=== PATIENT | female | born 1945 | race Caucasian/White ===

== ENCOUNTER 2017-07-31 18:44 | Inpatient (IN) ==
[2017-07-31] MEDS ORDERED: DEXTROSE 50% 25 GM/50 ML VIAL IV STA (19:07)
[2017-07-31] MEDS ORDERED: DEXTROSE 50% 25 GM/50 ML SYRINGE IV ONE (19:10)
[2017-07-31] MEDS ORDERED: ROCURONIUM 100 MG/10 ML VIAL IV ONE ×2 (19:10→19:11)
[2017-07-31 19:36] LABS: Basophils % 0.1 % (0.0-0.8); Eosinophils # 0.1 10*3/uL (0.0-0.87); Eosinophils % 0.2 % (0.00-10.9); Hematocrit 36.8 VOL% (35.7-47.0); Hemoglobin 11.6 GM/DL (12.0-16.0); Immature Granulocytes % 0.9 %; Immature Granulocytes Absolute 0.22 #; Lymphocytes # 0.6 10*3/uL (1.4-4.0); Lymphocytes % 2.4 % (21.3-54.2); Mean Corpuscular HGB Conc 31.5 GM/DL (32-36); Mean Corpuscular Hemoglobin 28 PG (27-34); Mean Corpuscular Volume 89.1 FL (87-102); Mean Platelet Volume 11.2 FL (9.6-12.0); Monocytes # 1.1 10*3/uL (0.11-0.8); Monocytes % 4.4 % (1.7-12.7); Platelet Count 149 T/CUMM (130-400); Red Blood Count 4.13 MC/CUMM (3.8-5.5); Red Cell Distribution Width 15.4 % (9.3-17.3)
[2017-07-31] MEDS ORDERED: VANCOMYCIN INJ 1,000 MG in SODIUM CHLORIDE 0.9% 250 ML IV STA (19:58)
[2017-07-31] MEDS ORDERED: CEFEPIME 2,000 MG in SODIUM CHLORIDE 0.9% 100 ML IV STA (19:58)
[2017-07-31 20:01] LABS: Albumin 2.7 G/DL (3.4-5.0); Bilirubin,Total 0.7 MG/DL (0.2-1.0); Calcium 8.1 MG/DL (8.5-10.1); Osmolality,Calculated 295.7 MOS/KG (273-304); Potassium 3.9 MMOL/L (3.5-5.1); Troponin I Only 0.043 NG/ML (0.00-0.045)
[2017-07-31] MEDS ORDERED: VANCOMYCIN 1,000 MG VIAL ONE (20:12)
[2017-07-31 20:20] LABS: Amorphous Crystals,Urine Occasional /HPF (Few); Apearance,Urine Slightly Hazy (Clear); Bacteria,Urine Occasional /HPF (Few); Bilirubin,Urine Negative (Negative); Blood, Urine Negative (Negative); Glucose,Urine (UA) 50 mg/dL (Negative); Ketones,Urine Negative (Negative); Mucus,Urine Occasional /LPF (Occasional); Nitrite,Urine Negative (Negative); Protein,Urine >=500 MG/DL; RBC,Urine 1 /HPF (0-4); Squamous Epithelial Cell,Urine Occasional /HPF (0-10); Urine Color Yellow (Yellow); Urine Specific Gravity 1.013 (1.001-1.035); Urine Urobilinogen < 2.0 EU/DL (0.2-1.0)
[2017-07-31 20:26] LABS: Band Neutrophils 4 % (0-10); Eosinophils 1 % (0-10); Lymphocytes 8 % (20-55); Platelet Estimate Normal; Segmented Neutrophils 85 % (50-85); Total Cells Counted 100
[2017-07-31 20:28] LABS: Lactic Acid 3.1 MMOL/L (0.4-2.0)
[2017-07-31] MEDS ORDERED: DEXTROSE 50% 25 GM/50 ML VIAL IV PRN (20:39)
[2017-07-31] MEDS ORDERED: GLUCAGON 1 MG VIAL IM PRN (20:39)
[2017-07-31] MEDS ORDERED: PROPOFOL 1,000 MG/100 ML BOTTLE IV ONE (20:46)
[2017-07-31] MEDS: PROPOFOL 1,000 MG/100 ML BOTTLE IV SCH (21:18)
[2017-07-31] MEDS ORDERED: VECURONIUM 10 MG VIAL IV ONE (22:28)
[2017-07-31] MEDS ORDERED: NOREPINEPHRINE 8 MG in SODIUM CHLORIDE 0.9% 242 ML IV SCH (23:00)
[2017-07-31] MEDS ORDERED: FUROSEMIDE 40 MG/4 ML VIAL IV ONE (23:00)
[2017-07-31 23:04] LABS: ABG Base Excess -2.7 MMOL/L (-2.5-2.5); ABG HCO3 21.9 MMOL/L (20-26); ABG Oxygen Saturation 85.7 % (95-100); ABG PCO2 45.4 MM HG (35-48); ABG PH 7.322 (7.35-7.45); ABG PO2 52.3 MM HG (80-95); ABG TCO2 21.2 MMOL/L (23-27); Pt O2 Delivery Device Ventilator
[2017-07-31] MEDS: LEVOFLOXACIN INJ 750 MG in PREMIX 1 EACH IV SCH (23:17)
[2017-07-31] MEDS: INSULIN REGULAR 100 UNIT/ML SUBCUT SCH (23:50)
[2017-08-01 00:33] LABS: Lactic Acid 2.1 MMOL/L (0.4-2.0)
[2017-08-01] MEDS: PROPOFOL 1,000 MG/100 ML BOTTLE IV SCH ×7 (01:15→23:24)
[2017-08-01 02:46] LABS: ABG Base Excess -2.6 MMOL/L (-2.5-2.5); ABG HCO3 22.2 MMOL/L (20-26); ABG Oxygen Saturation 97.6 % (95-100); ABG PCO2 35.1 MM HG (35-48); ABG PH 7.398 (7.35-7.45); ABG PO2 91.1 MM HG (80-95); ABG TCO2 19.6 MMOL/L (23-27); Pt O2 Delivery Device Ventilator
[2017-08-01 06:06] LABS: Basophils % 0.1 % (0.0-0.8); Eosinophils # 0.1 10*3/uL (0.0-0.87); Eosinophils % 0.9 % (0.00-10.9); Hematocrit 33.1 VOL% (35.7-47.0); Hemoglobin 10.8 GM/DL (12.0-16.0); Immature Granulocytes % 0.7 %; Immature Granulocytes Absolute 0.11 #; Lymphocytes # 0.8 10*3/uL (1.4-4.0); Mean Corpuscular HGB Conc 32.6 GM/DL (32-36); Mean Corpuscular Hemoglobin 28 PG (27-34); Mean Platelet Volume 11.7 FL (9.6-12.0); Monocytes # 0.5 10*3/uL (0.11-0.8); Monocytes % 3.5 % (1.7-12.7); Neutrophils # 13.4 10*3/uL (1.4-7.4); Neutrophils % 89.8 % (38.7-73.9); Platelet Count 131 T/CUMM (130-400); Red Blood Count 3.85 MC/CUMM (3.8-5.5); Red Cell Distribution Width 15.8 % (9.3-17.3)
[2017-08-01 06:50] LABS: Anisocytosis 1+; Platelet Estimate Normal
[2017-08-01 06:53] LABS: Albumin 2.1 G/DL (3.4-5.0); Bilirubin,Total 0.9 MG/DL (0.2-1.0); Calcium 7.7 MG/DL (8.5-10.1); Osmolality,Calculated 291.3 MOS/KG (273-304); Thyroid Stimulating Hormone 0.616 uIU/ml (0.358-3.74); Total Protein 4.7 G/DL (6.4-8.3)
[2017-08-01] MEDS: INSULIN REGULAR 100 UNIT/ML SUBCUT SCH ×4 (08:08→21:22)
[2017-08-01] MEDS: VANCOMYCIN INJ 1,500 MG in SODIUM CHLORIDE 0.9% 500 ML IV SCH (08:16)
[2017-08-01] MEDS: MEROPENEM 1,000 MG in SYRINGE 1 EACH IV SCH ×3 (08:16→17:59)
[2017-08-01] MEDS: CLOPIDOGREL 75 MG TABLET PO SCH (13:38)
[2017-08-01] MEDS: BISOPROLOL 5 MG TABLET PO SCH (13:38)
[2017-08-01] MEDS: DOXAZOSIN 1 MG TABLET PO SCH (13:38)
[2017-08-01] MEDS ORDERED: INSULIN DETEMIR 100 UNIT/ML SUBCUT SCH (21:00)
[2017-08-01] MEDS: hydrALAZINE 20 MG/1 ML VIAL IV PRN (21:15)
[2017-08-01] MEDS: INSULIN GLARGINE 100 UNIT/ML SUBCUT SCH (21:22)
[2017-08-01] MEDS: NYSTATIN CREAM 15 GM TUBE TOP SCH (21:25)
[2017-08-02] MEDS: MEROPENEM 1,000 MG in SYRINGE 1 EACH IV SCH ×3 (00:25→16:40)
[2017-08-02] MEDS: PROPOFOL 1,000 MG/100 ML BOTTLE IV SCH ×5 (03:02→21:37)
[2017-08-02 03:35] LABS: ABG Base Excess -0.7 MMOL/L (-2.5-2.5); ABG HCO3 23.9 MMOL/L (20-26); ABG PCO2 26.1 MM HG (35-48); ABG PH 7.509 (7.35-7.45); ABG TCO2 17.8 MMOL/L (23-27); Allen Test Positive; Pt O2 Delivery Device Ventilator
[2017-08-02] MEDS ORDERED: FUROSEMIDE 40 MG/4 ML VIAL IV ONE (05:00)
[2017-08-02 05:25] LABS: Basophils % 0.1 % (0.0-0.8); Eosinophils # 0.1 10*3/uL (0.0-0.87); Eosinophils % 0.7 % (0.00-10.9); Hematocrit 33.1 VOL% (35.7-47.0); Hemoglobin 11.1 GM/DL (12.0-16.0); Immature Granulocytes % 0.9 %; Lymphocytes # 0.4 10*3/uL (1.4-4.0); Lymphocytes % 3.4 % (21.3-54.2); Mean Corpuscular HGB Conc 33.5 GM/DL (32-36); Mean Corpuscular Hemoglobin 28 PG (27-34); Mean Corpuscular Volume 83.6 FL (87-102); Mean Platelet Volume 11.9 FL (9.6-12.0); Monocytes # 0.4 10*3/uL (0.11-0.8); Monocytes % 3.6 % (1.7-12.7); Neutrophils # 10.2 10*3/uL (1.4-7.4); Neutrophils % 91.3 % (38.7-73.9); Platelet Count 139 T/CUMM (130-400); Red Blood Count 3.96 MC/CUMM (3.8-5.5); Red Cell Distribution Width 15.7 % (9.3-17.3); White Blood Count 11.2 T/CUMM (4-12)
[2017-08-02 05:55] LABS: Albumin 1.9 G/DL (3.4-5.0); Bilirubin,Total 4.4 MG/DL (0.2-1.0); Calcium 8.2 MG/DL (8.5-10.1); Magnesium 2.2 MG/DL (1.8-2.4); Osmolality,Calculated 291.4 MOS/KG (273-304); Potassium 3.3 MMOL/L (3.5-5.1); Total Protein 4.7 G/DL (6.4-8.3)
[2017-08-02] MEDS ORDERED: POTASSIUM CHLORIDE RIDER 10 MEQ in PREMIX 1 EACH IV PRN (06:04)
[2017-08-02 06:29] LABS: Band Neutrophils 2 % (0-10); Lymphocytes 8 % (20-55); Platelet Estimate Normal; Segmented Neutrophils 88 % (50-85); Total Cells Counted 100
[2017-08-02] MEDS ORDERED: POTASSIUM CHLORIDE INJ 40 MEQ in SODIUM CHLORIDE 0.9% 500 ML IV ONE (07:00)
[2017-08-02] MEDS: INSULIN REGULAR 100 UNIT/ML SUBCUT SCH ×4 (08:00→21:37)
[2017-08-02] MEDS: DOXAZOSIN 1 MG TABLET PO SCH (08:30)
[2017-08-02] MEDS: ASPIRIN EC 81 MG TABLET PO SCH (08:30)
[2017-08-02] MEDS: BISOPROLOL 5 MG TABLET PO SCH (08:30)
[2017-08-02] MEDS: PRAVASTATIN 20 MG TABLET PO SCH (08:30)
[2017-08-02] MEDS: CLOPIDOGREL 75 MG TABLET PO SCH (08:30)
[2017-08-02] MEDS: amLODIPine 10 MG TABLET PO SCH (08:30)
[2017-08-02] MEDS: NYSTATIN CREAM 15 GM TUBE TOP SCH ×2 (08:31→21:37)
[2017-08-02] MEDS ORDERED: POTASSIUM CHLORIDE INJ 30 MEQ in SODIUM CHLORIDE 0.9% 500 ML IV ONE (19:30)
[2017-08-02] MEDS: INSULIN GLARGINE 100 UNIT/ML SUBCUT SCH (21:37)
[2017-08-02] MEDS: LEVOFLOXACIN INJ 750 MG in PREMIX 1 EACH IV SCH (23:56)
[2017-08-03] MEDS: MEROPENEM 1,000 MG in SYRINGE 1 EACH IV SCH ×3 (02:48→21:34)
[2017-08-03] MEDS: PROPOFOL 1,000 MG/100 ML BOTTLE IV SCH ×4 (02:49→18:39)
[2017-08-03 04:03] LABS: ABG Base Excess 0.3 MMOL/L (-2.5-2.5); ABG HCO3 23.5 MMOL/L (20-26); ABG Oxygen Saturation 98.6 % (95-100); ABG PO2 166.2 MM HG (80-95); ABG TCO2 24.5 MMOL/L (23-27); Allen Test Positive; Pt O2 Delivery Device Ventilator
[2017-08-03] MEDS: hydrALAZINE 20 MG/1 ML VIAL IV PRN (06:03)
[2017-08-03 06:26] LABS: Basophils % 0.1 % (0.0-0.8); Eosinophils # 0.2 10*3/uL (0.0-0.87); Eosinophils % 2.5 % (0.00-10.9); Hematocrit 32.2 VOL% (35.7-47.0); Hemoglobin 10.4 GM/DL (12.0-16.0); Immature Granulocytes % 1.1 %; Immature Granulocytes Absolute 0.09 #; Lymphocytes # 0.2 10*3/uL (1.4-4.0); Lymphocytes % 2.4 % (21.3-54.2); Mean Corpuscular HGB Conc 32.3 GM/DL (32-36); Mean Corpuscular Hemoglobin 28 PG (27-34); Mean Corpuscular Volume 86.6 FL (87-102); Mean Platelet Volume 11.5 FL (9.6-12.0); Monocytes # 0.5 10*3/uL (0.11-0.8); Monocytes % 6.5 % (1.7-12.7); Neutrophils # 6.9 10*3/uL (1.4-7.4); Neutrophils % 87.4 % (38.7-73.9); Platelet Count 101 T/CUMM (130-400); Red Blood Count 3.72 MC/CUMM (3.8-5.5); Red Cell Distribution Width 15.8 % (9.3-17.3); White Blood Count 7.9 T/CUMM (4-12)
[2017-08-03 06:44] LABS: Hypochromasia Slight
[2017-08-03 07:05] LABS: Albumin 1.8 G/DL (3.4-5.0); Bilirubin,Total 3.7 MG/DL (0.2-1.0); Calcium 8.1 MG/DL (8.5-10.1); Osmolality,Calculated 297.7 MOS/KG (273-304); Potassium 3.9 MMOL/L (3.5-5.1); Total Protein 4.9 G/DL (6.4-8.3)
[2017-08-03] MEDS: INSULIN REGULAR 100 UNIT/ML SUBCUT SCH ×3 (07:59→18:15)
[2017-08-03] MEDS: VANCOMYCIN INJ 1,500 MG in SODIUM CHLORIDE 0.9% 500 ML IV SCH (08:05)
[2017-08-03] MEDS: DOXAZOSIN 1 MG TABLET PO SCH (08:51)
[2017-08-03] MEDS: PRAVASTATIN 20 MG TABLET PO SCH (08:51)
[2017-08-03] MEDS: BISOPROLOL 5 MG TABLET PO SCH (08:51)
[2017-08-03] MEDS: amLODIPine 10 MG TABLET PO SCH (08:51)
[2017-08-03] MEDS: ASPIRIN EC 81 MG TABLET PO SCH (08:51)
[2017-08-03] MEDS: CLOPIDOGREL 75 MG TABLET PO SCH (08:57)
[2017-08-03] MEDS: NYSTATIN CREAM 15 GM TUBE TOP SCH ×2 (09:02→21:34)
[2017-08-03] MEDS: INSULIN GLARGINE 100 UNIT/ML SUBCUT SCH (21:34)
[2017-08-04] MEDS: INSULIN REGULAR 100 UNIT/ML SUBCUT SCH ×4 (02:32→17:54)
[2017-08-04] MEDS: PROPOFOL 1,000 MG/100 ML BOTTLE IV SCH ×4 (03:44→21:08)
[2017-08-04 04:12] LABS: ABG HCO3 24.5 MMOL/L (20-26); ABG Oxygen Saturation 98.8 % (95-100); ABG PCO2 31.1 MM HG (35-48); ABG PH 7.515 (7.35-7.45); ABG PO2 168.6 MM HG (80-95); ABG TCO2 25.5 MMOL/L (23-27); Allen Test Positive; Pt O2 Delivery Device Ventilator
[2017-08-04 05:02] LABS: Basophils % 0.2 % (0.0-0.8); Eosinophils # 0.2 10*3/uL (0.0-0.87); Eosinophils % 4.5 % (0.00-10.9); Hematocrit 30.7 VOL% (35.7-47.0); Hemoglobin 9.9 GM/DL (12.0-16.0); Immature Granulocytes % 1.6 %; Immature Granulocytes Absolute 0.08 #; Lymphocytes # 0.3 10*3/uL (1.4-4.0); Lymphocytes % 6.4 % (21.3-54.2); Mean Corpuscular HGB Conc 32.2 GM/DL (32-36); Mean Corpuscular Hemoglobin 28 PG (27-34); Mean Platelet Volume 11.9 FL (9.6-12.0); Monocytes # 0.7 10*3/uL (0.11-0.8); Monocytes % 12.8 % (1.7-12.7); NRBC # 0.02 10*3/uL; Neutrophils # 3.9 10*3/uL (1.4-7.4); Neutrophils % 74.5 % (38.7-73.9); Platelet Count 100 T/CUMM (130-400); Red Blood Count 3.57 MC/CUMM (3.8-5.5); Red Cell Distribution Width 15.7 % (9.3-17.3); White Blood Count 5.2 T/CUMM (4-12)
[2017-08-04 05:30] LABS: Calcium 7.7 MG/DL (8.5-10.1); Magnesium 2.5 MG/DL (1.8-2.4); Osmolality,Calculated 298.4 MOS/KG (273-304); Potassium 3.8 MMOL/L (3.5-5.1)
[2017-08-04] MEDS ORDERED: POTASSIUM CHLORIDE RIDER 0 ML IV ONE (05:57)
[2017-08-04] MEDS: hydrALAZINE 20 MG/1 ML VIAL IV PRN (06:26)
[2017-08-04] MEDS ORDERED: FUROSEMIDE 40 MG/4 ML VIAL IV ONE (07:53)
[2017-08-04] MEDS: methylPREDNISolone SOD SUC 40 MG/1 ML VIAL IV SCH ×2 (08:45→16:09)
[2017-08-04] MEDS: CLOPIDOGREL 75 MG TABLET PO SCH (08:50)
[2017-08-04] MEDS: DOXAZOSIN 1 MG TABLET PO SCH (08:50)
[2017-08-04] MEDS: amLODIPine 10 MG TABLET PO SCH (08:50)
[2017-08-04] MEDS: PRAVASTATIN 20 MG TABLET PO SCH (08:51)
[2017-08-04] MEDS: ASPIRIN EC 81 MG TABLET PO SCH (08:52)
[2017-08-04] MEDS: BISOPROLOL 5 MG TABLET PO SCH (09:01)
[2017-08-04] MEDS: MEROPENEM 1,000 MG in SYRINGE 1 EACH IV SCH ×2 (09:08→21:07)
[2017-08-04] MEDS: NYSTATIN CREAM 15 GM TUBE TOP SCH ×2 (09:17→21:08)
[2017-08-04] MEDS: INSULIN GLARGINE 100 UNIT/ML SUBCUT SCH (21:07)
[2017-08-05] MEDS: LEVOFLOXACIN INJ 750 MG in PREMIX 1 EACH IV SCH (00:04)
[2017-08-05] MEDS: methylPREDNISolone SOD SUC 40 MG/1 ML VIAL IV SCH ×3 (00:21→17:40)
[2017-08-05] MEDS: INSULIN REGULAR 100 UNIT/ML SUBCUT SCH ×4 (00:21→18:24)
[2017-08-05] MEDS: PROPOFOL 1,000 MG/100 ML BOTTLE IV SCH (01:59)
[2017-08-05 04:12] LABS: ABG Base Excess -0.3 MMOL/L (-2.5-2.5); ABG HCO3 24.1 MMOL/L (20-26); ABG Oxygen Saturation 95.8 % (95-100); ABG PCO2 39.2 MM HG (35-48); ABG PO2 79.9 MM HG (80-95); ABG TCO2 21.2 MMOL/L (23-27); Allen Test Positive; Pt O2 Delivery Device Ventilator
[2017-08-05 05:37] LABS: Basophils % 0.4 % (0.0-0.8); Eosinophils % 0.4 % (0.00-10.9); Hematocrit 34.4 VOL% (35.7-47.0); Hemoglobin 11.1 GM/DL (12.0-16.0); Immature Granulocytes % 2.1 %; Immature Granulocytes Absolute 0.11 #; Lymphocytes # 0.3 10*3/uL (1.4-4.0); Lymphocytes % 5.2 % (21.3-54.2); Mean Corpuscular HGB Conc 32.3 GM/DL (32-36); Mean Corpuscular Hemoglobin 28 PG (27-34); Mean Corpuscular Volume 85.8 FL (87-102); Mean Platelet Volume 11.8 FL (9.6-12.0); Monocytes # 0.4 10*3/uL (0.11-0.8); NRBC # 0.02 10*3/uL; Neutrophils # 4.4 10*3/uL (1.4-7.4); Neutrophils % 84.9 % (38.7-73.9); Platelet Count 94 T/CUMM (130-400); Red Blood Count 4.01 MC/CUMM (3.8-5.5); Red Cell Distribution Width 15.1 % (9.3-17.3); White Blood Count 5.2 T/CUMM (4-12)
[2017-08-05 06:01] LABS: Calcium 8.1 MG/DL (8.5-10.1); Osmolality,Calculated 308.6 MOS/KG (273-304)
[2017-08-05 06:02] LABS: Potassium 3.9 MMOL/L (3.5-5.1)
[2017-08-05 06:06] LABS: Giant Platelets Few; Hypochromasia 1+; Microcytosis Slight; Platelet Estimate Decreased
[2017-08-05] MEDS ORDERED: POTASSIUM CHLORIDE RIDER 100 ML IV ONE (06:21)
[2017-08-05] MEDS: VANCOMYCIN INJ 1,500 MG in SODIUM CHLORIDE 0.9% 500 ML IV SCH (09:44)
[2017-08-05] MEDS: PRAVASTATIN 20 MG TABLET PO SCH (09:48)
[2017-08-05] MEDS: amLODIPine 10 MG TABLET PO SCH (09:49)
[2017-08-05] MEDS: DOXAZOSIN 1 MG TABLET PO SCH (09:49)
[2017-08-05] MEDS: CLOPIDOGREL 75 MG TABLET PO SCH (09:49)
[2017-08-05] MEDS: ASPIRIN EC 81 MG TABLET PO SCH (09:52)
[2017-08-05] MEDS: NYSTATIN CREAM 15 GM TUBE TOP SCH ×2 (09:52→21:09)
[2017-08-05] MEDS: BISOPROLOL 5 MG TABLET PO SCH (09:58)
[2017-08-05] MEDS: MEROPENEM 1,000 MG in SYRINGE 1 EACH IV SCH ×2 (10:21→21:09)
[2017-08-05] MEDS: CITALOPRAM 20 MG TABLET PO SCH (14:29)
[2017-08-05] MEDS: ALPRAZolam 0.25 MG TABLET PO SCH ×2 (14:29→21:09)
[2017-08-05] MEDS: INSULIN GLARGINE 100 UNIT/ML SUBCUT SCH (21:09)
[2017-08-06] MEDS: methylPREDNISolone SOD SUC 40 MG/1 ML VIAL IV SCH ×3 (00:05→16:40)
[2017-08-06] MEDS: INSULIN REGULAR 100 UNIT/ML SUBCUT SCH ×4 (00:05→17:41)
[2017-08-06 02:10] LABS: Basophils % 0.2 % (0.0-0.8); Eosinophils % 0.2 % (0.00-10.9); Hematocrit 35.3 VOL% (35.7-47.0); Hemoglobin 11.4 GM/DL (12.0-16.0); Immature Granulocytes % 1.5 %; Immature Granulocytes Absolute 0.13 #; Lymphocytes # 0.4 10*3/uL (1.4-4.0); Lymphocytes % 4.5 % (21.3-54.2); Mean Corpuscular HGB Conc 32.3 GM/DL (32-36); Mean Corpuscular Hemoglobin 27 PG (27-34); Mean Corpuscular Volume 84.4 FL (87-102); Mean Platelet Volume 11.7 FL (9.6-12.0); Monocytes # 0.4 10*3/uL (0.11-0.8); Monocytes % 4.7 % (1.7-12.7); Neutrophils # 7.5 10*3/uL (1.4-7.4); Neutrophils % 88.9 % (38.7-73.9); Platelet Count 107 T/CUMM (130-400); Red Blood Count 4.18 MC/CUMM (3.8-5.5); White Blood Count 8.5 T/CUMM (4-12)
[2017-08-06 02:42] LABS: Calcium 8.2 MG/DL (8.5-10.1); Osmolality,Calculated 309.7 MOS/KG (273-304)
[2017-08-06 02:48] LABS: Band Neutrophils 18 % (0-10); Lymphocytes 3 % (20-55); Segmented Neutrophils 74 % (50-85); Total Cells Counted 100
[2017-08-06 04:02] LABS: Allen Test Positive; Pt O2 Delivery Device Venturi Mask
[2017-08-06 04:03] LABS: ABG Base Excess 0.4 MMOL/L (-2.5-2.5); ABG HCO3 24.7 MMOL/L (20-26); ABG Oxygen Saturation 94.1 % (95-100); ABG PCO2 40.1 MM HG (35-48); ABG PH 7.404 (7.35-7.45); ABG TCO2 22.5 MMOL/L (23-27)
[2017-08-06] MEDS ORDERED: PSEUDOEPHEDRINE 30 MG TABLET PO PRN (07:06)
[2017-08-06] MEDS ORDERED: CETIRIZINE 10 MG TABLET PO PRN (09:00)
[2017-08-06] MEDS: amLODIPine 10 MG TABLET PO SCH (10:40)
[2017-08-06] MEDS: BISOPROLOL 5 MG TABLET PO SCH (10:40)
[2017-08-06] MEDS: ASPIRIN EC 81 MG TABLET PO SCH (10:40)
[2017-08-06] MEDS: ALPRAZolam 0.25 MG TABLET PO SCH ×2 (10:40→21:20)
[2017-08-06] MEDS: CITALOPRAM 20 MG TABLET PO SCH (10:40)
[2017-08-06] MEDS: DOXAZOSIN 1 MG TABLET PO SCH (10:40)
[2017-08-06] MEDS: NYSTATIN CREAM 15 GM TUBE TOP SCH ×2 (10:40→21:15)
[2017-08-06] MEDS: PRAVASTATIN 20 MG TABLET PO SCH (10:40)
[2017-08-06] MEDS: CLOPIDOGREL 75 MG TABLET PO SCH (10:40)
[2017-08-06] MEDS: MEROPENEM 1,000 MG in SYRINGE 1 EACH IV SCH ×2 (10:43→21:25)
[2017-08-06] MEDS: INSULIN GLARGINE 100 UNIT/ML SUBCUT SCH (21:21)
[2017-08-06] MEDS: LEVOFLOXACIN INJ 750 MG in PREMIX 1 EACH IV SCH (23:09)
[2017-08-07] MEDS: INSULIN REGULAR 100 UNIT/ML SUBCUT SCH ×4 (00:25→18:12)
[2017-08-07] MEDS: methylPREDNISolone SOD SUC 40 MG/1 ML VIAL IV SCH ×3 (00:29→15:52)
[2017-08-07 05:51] LABS: Basophils % 0.1 % (0.0-0.8); Eosinophils % 0.3 % (0.00-10.9); Hematocrit 34.5 VOL% (35.7-47.0); Hemoglobin 11.5 GM/DL (12.0-16.0); Immature Granulocytes % 4.1 %; Immature Granulocytes Absolute 0.28 #; Lymphocytes # 0.5 10*3/uL (1.4-4.0); Lymphocytes % 6.9 % (21.3-54.2); Mean Corpuscular HGB Conc 33.3 GM/DL (32-36); Mean Corpuscular Hemoglobin 28 PG (27-34); Mean Corpuscular Volume 82.9 FL (87-102); Mean Platelet Volume 11.5 FL (9.6-12.0); Monocytes # 0.4 10*3/uL (0.11-0.8); Monocytes % 6.3 % (1.7-12.7); Neutrophils # 5.6 10*3/uL (1.4-7.4); Neutrophils % 82.3 % (38.7-73.9); Platelet Count 103 T/CUMM (130-400); Red Blood Count 4.16 MC/CUMM (3.8-5.5); Red Cell Distribution Width 14.8 % (9.3-17.3); White Blood Count 6.8 T/CUMM (4-12)
[2017-08-07 06:14] LABS: Calcium 8.1 MG/DL (8.5-10.1); Osmolality,Calculated 308.1 MOS/KG (273-304); Potassium 4.4 MMOL/L (3.5-5.1)
[2017-08-07 06:51] LABS: Microcytosis 1+
[2017-08-07 06:52] LABS: Platelet Estimate Decreased
[2017-08-07] MEDS: MEROPENEM 1,000 MG in SYRINGE 1 EACH IV SCH ×2 (09:38→22:00)
[2017-08-07] MEDS: CITALOPRAM 20 MG TABLET PO SCH (09:39)
[2017-08-07] MEDS: PRAVASTATIN 20 MG TABLET PO SCH (09:39)
[2017-08-07] MEDS: ASPIRIN EC 81 MG TABLET PO SCH (09:39)
[2017-08-07] MEDS: CLOPIDOGREL 75 MG TABLET PO SCH (09:39)
[2017-08-07] MEDS: VANCOMYCIN INJ 1,500 MG in SODIUM CHLORIDE 0.9% 500 ML IV SCH (09:39)
[2017-08-07] MEDS: DOXAZOSIN 1 MG TABLET PO SCH (09:39)
[2017-08-07] MEDS: ALPRAZolam 0.25 MG TABLET PO SCH ×2 (09:39→22:00)
[2017-08-07] MEDS: amLODIPine 10 MG TABLET PO SCH (09:39)
[2017-08-07] MEDS: BISOPROLOL 5 MG TABLET PO SCH (09:39)
[2017-08-07] MEDS: NYSTATIN CREAM 15 GM TUBE TOP SCH ×2 (09:40→22:01)
[2017-08-07] MEDS: INSULIN GLARGINE 100 UNIT/ML SUBCUT SCH (22:00)
[2017-08-08] MEDS: INSULIN REGULAR 100 UNIT/ML SUBCUT SCH ×5 (00:25→23:42)
[2017-08-08] MEDS: methylPREDNISolone SOD SUC 40 MG/1 ML VIAL IV SCH ×4 (02:45→23:29)
[2017-08-08 06:35] LABS: Basophils % 0.5 % (0.0-0.8); Eosinophils % 0.5 % (0.00-10.9); Hematocrit 35.3 VOL% (35.7-47.0); Hemoglobin 11.4 GM/DL (12.0-16.0); Immature Granulocytes % 5.9 %; Immature Granulocytes Absolute 0.36 #; Lymphocytes # 0.5 10*3/uL (1.4-4.0); Lymphocytes % 8.6 % (21.3-54.2); Mean Corpuscular HGB Conc 32.3 GM/DL (32-36); Mean Corpuscular Hemoglobin 27 PG (27-34); Mean Corpuscular Volume 84.2 FL (87-102); Mean Platelet Volume 11.2 FL (9.6-12.0); Monocytes # 0.4 10*3/uL (0.11-0.8); Monocytes % 5.9 % (1.7-12.7); Neutrophils # 4.8 10*3/uL (1.4-7.4); Neutrophils % 78.6 % (38.7-73.9); Platelet Count 145 T/CUMM (130-400); Red Blood Count 4.19 MC/CUMM (3.8-5.5); Red Cell Distribution Width 14.7 % (9.3-17.3); White Blood Count 6.1 T/CUMM (4-12)
[2017-08-08 07:00] LABS: Osmolality,Calculated 302.3 MOS/KG (273-304); Potassium 4.9 MMOL/L (3.5-5.1)
[2017-08-08 07:33] LABS: Band Neutrophils 9 % (0-10); Lymphocytes 10 % (20-55); Segmented Neutrophils 78 % (50-85); Total Cells Counted 100
[2017-08-08] MEDS: BISOPROLOL 5 MG TABLET PO SCH (09:10)
[2017-08-08] MEDS: ALPRAZolam 0.25 MG TABLET PO SCH ×2 (09:10→23:31)
[2017-08-08] MEDS: NYSTATIN CREAM 15 GM TUBE TOP SCH ×2 (09:10→23:32)
[2017-08-08] MEDS: DOXAZOSIN 1 MG TABLET PO SCH (09:10)
[2017-08-08] MEDS: PRAVASTATIN 20 MG TABLET PO SCH (09:10)
[2017-08-08] MEDS: CITALOPRAM 20 MG TABLET PO SCH (09:10)
[2017-08-08] MEDS: ASPIRIN EC 81 MG TABLET PO SCH (09:10)
[2017-08-08] MEDS: CLOPIDOGREL 75 MG TABLET PO SCH (09:10)
[2017-08-08] MEDS: amLODIPine 10 MG TABLET PO SCH (09:10)
[2017-08-08] MEDS: MEROPENEM 1,000 MG in SYRINGE 1 EACH IV SCH ×2 (09:10→23:32)
[2017-08-08] MEDS ORDERED: MAGNESIUM HYDROXIDE SUSP 30 ML UDCUP PO ONE (15:21)
[2017-08-08] MEDS ORDERED: BISACODYL 5 MG TABLET PO ONE (15:22)
[2017-08-08] MEDS ORDERED: LACTULOSE 20 GM/30 ML UDCUP PO ONE (21:00)
[2017-08-08] MEDS: INSULIN GLARGINE 100 UNIT/ML SUBCUT SCH (23:30)
[2017-08-08] MEDS: DOCUSATE SODIUM 100 MG CAPSULE PO SCH (23:31)
[2017-08-08] MEDS: LEVOFLOXACIN INJ 750 MG in PREMIX 1 EACH IV SCH (23:43)
[2017-08-09] MEDS: INSULIN REGULAR 100 UNIT/ML SUBCUT SCH ×3 (07:08→18:15)
[2017-08-09] MEDS: ASPIRIN EC 81 MG TABLET PO SCH (09:05)
[2017-08-09] MEDS: BISOPROLOL 5 MG TABLET PO SCH (09:05)
[2017-08-09] MEDS: DOXAZOSIN 1 MG TABLET PO SCH (09:05)
[2017-08-09] MEDS: DOCUSATE SODIUM 100 MG CAPSULE PO SCH ×2 (09:05→21:41)
[2017-08-09] MEDS: CITALOPRAM 20 MG TABLET PO SCH (09:05)
[2017-08-09] MEDS: amLODIPine 10 MG TABLET PO SCH (09:05)
[2017-08-09] MEDS: ALPRAZolam 0.25 MG TABLET PO SCH ×2 (09:06→21:41)
[2017-08-09] MEDS: CLOPIDOGREL 75 MG TABLET PO SCH (09:06)
[2017-08-09] MEDS: PRAVASTATIN 20 MG TABLET PO SCH (09:06)
[2017-08-09] MEDS: methylPREDNISolone SOD SUC 40 MG/1 ML VIAL IV SCH ×2 (09:06→16:32)
[2017-08-09] MEDS: NYSTATIN CREAM 15 GM TUBE TOP SCH ×2 (09:07→21:53)
[2017-08-09] MEDS: MEROPENEM 1,000 MG in SYRINGE 1 EACH IV SCH ×2 (09:07→21:44)
[2017-08-09] MEDS: INSULIN GLARGINE 100 UNIT/ML SUBCUT SCH (21:52)
[2017-08-10] MEDS: methylPREDNISolone SOD SUC 40 MG/1 ML VIAL IV SCH ×3 (00:53→15:24)
[2017-08-10] MEDS: INSULIN REGULAR 100 UNIT/ML SUBCUT SCH ×4 (01:01→17:34)
[2017-08-10 06:32] LABS: Calcium 8.3 MG/DL (8.5-10.1); Osmolality,Calculated 295.5 MOS/KG (273-304)
[2017-08-10] MEDS: ASPIRIN EC 81 MG TABLET PO SCH (08:55)
[2017-08-10] MEDS: ALPRAZolam 0.25 MG TABLET PO SCH ×2 (08:55→21:18)
[2017-08-10] MEDS: DOCUSATE SODIUM 100 MG CAPSULE PO SCH ×2 (08:55→21:18)
[2017-08-10] MEDS: PRAVASTATIN 20 MG TABLET PO SCH (08:55)
[2017-08-10] MEDS: DOXAZOSIN 1 MG TABLET PO SCH (08:55)
[2017-08-10] MEDS: amLODIPine 10 MG TABLET PO SCH (08:55)
[2017-08-10] MEDS: BISOPROLOL 5 MG TABLET PO SCH (08:55)
[2017-08-10] MEDS: CLOPIDOGREL 75 MG TABLET PO SCH (08:55)
[2017-08-10] MEDS: CITALOPRAM 20 MG TABLET PO SCH (08:55)
[2017-08-10] MEDS: MEROPENEM 1,000 MG in SYRINGE 1 EACH IV SCH ×2 (08:56→21:19)
[2017-08-10] MEDS: NYSTATIN CREAM 15 GM TUBE TOP SCH (08:56)
[2017-08-10] MEDS ORDERED: ALBUTEROL/IPRATROPIUM 3 ML NEB RESP TX PRN (11:52)
[2017-08-10] MEDS: INSULIN GLARGINE 100 UNIT/ML SUBCUT SCH (21:18)
[2017-08-11] MEDS: methylPREDNISolone SOD SUC 40 MG/1 ML VIAL IV SCH ×3 (00:13→21:06)
[2017-08-11] MEDS: LEVOFLOXACIN INJ 750 MG in PREMIX 1 EACH IV SCH (00:14)
[2017-08-11] MEDS: INSULIN REGULAR 100 UNIT/ML SUBCUT SCH ×4 (00:14→17:46)
[2017-08-11] MEDS: NYSTATIN CREAM 15 GM TUBE TOP SCH ×3 (00:15→21:05)
[2017-08-11] MEDS: DOXAZOSIN 1 MG TABLET PO SCH (09:24)
[2017-08-11] MEDS: ALPRAZolam 0.25 MG TABLET PO SCH ×2 (09:24→21:05)
[2017-08-11] MEDS: CITALOPRAM 20 MG TABLET PO SCH (09:24)
[2017-08-11] MEDS: MEROPENEM 1,000 MG in SYRINGE 1 EACH IV SCH (09:24)
[2017-08-11] MEDS: DOCUSATE SODIUM 100 MG CAPSULE PO SCH ×2 (09:24→21:05)
[2017-08-11] MEDS: amLODIPine 10 MG TABLET PO SCH (09:24)
[2017-08-11] MEDS: ASPIRIN EC 81 MG TABLET PO SCH (09:24)
[2017-08-11] MEDS: PRAVASTATIN 20 MG TABLET PO SCH (09:24)
[2017-08-11] MEDS: CLOPIDOGREL 75 MG TABLET PO SCH (09:24)
[2017-08-11] MEDS: BISOPROLOL 5 MG TABLET PO SCH (09:24)
[2017-08-11] MEDS ORDERED: TUBERCULIN SKIN TEST 0.1 ML SYRINGE INTRADERM ONE (14:25)
[2017-08-11] MEDS: INSULIN GLARGINE 100 UNIT/ML SUBCUT SCH (21:05)
[2017-08-12] MEDS: INSULIN REGULAR 100 UNIT/ML SUBCUT SCH ×4 (00:35→17:54)
[2017-08-12 06:01] LABS: Basophils % 0.1 % (0.0-0.8); Eosinophils % 0.1 % (0.00-10.9); Hematocrit 33.8 VOL% (35.7-47.0); Hemoglobin 11.3 GM/DL (12.0-16.0); Immature Granulocytes % 3.5 %; Immature Granulocytes Absolute 0.25 #; Lymphocytes # 0.4 10*3/uL (1.4-4.0); Lymphocytes % 5.9 % (21.3-54.2); Mean Corpuscular HGB Conc 33.4 GM/DL (32-36); Mean Corpuscular Hemoglobin 28 PG (27-34); Mean Corpuscular Volume 83.5 FL (87-102); Mean Platelet Volume 10.9 FL (9.6-12.0); Monocytes # 0.4 10*3/uL (0.11-0.8); Monocytes % 5.6 % (1.7-12.7); Neutrophils % 84.8 % (38.7-73.9); Platelet Count 165 T/CUMM (130-400); Red Blood Count 4.05 MC/CUMM (3.8-5.5); Red Cell Distribution Width 14.6 % (9.3-17.3); White Blood Count 7.1 T/CUMM (4-12)
[2017-08-12 06:35] LABS: Calcium 8.1 MG/DL (8.5-10.1); Magnesium 2.6 MG/DL (1.8-2.4); Osmolality,Calculated 295.7 MOS/KG (273-304); Potassium 4.9 MMOL/L (3.5-5.1)
[2017-08-12] MEDS: ASPIRIN EC 81 MG TABLET PO SCH (09:25)
[2017-08-12] MEDS: ALPRAZolam 0.25 MG TABLET PO SCH ×2 (09:25→20:30)
[2017-08-12] MEDS: CITALOPRAM 20 MG TABLET PO SCH (09:25)
[2017-08-12] MEDS: amLODIPine 10 MG TABLET PO SCH (09:25)
[2017-08-12] MEDS: BISOPROLOL 5 MG TABLET PO SCH (09:25)
[2017-08-12] MEDS: DOXAZOSIN 1 MG TABLET PO SCH (09:25)
[2017-08-12] MEDS: PRAVASTATIN 20 MG TABLET PO SCH (09:25)
[2017-08-12] MEDS: CLOPIDOGREL 75 MG TABLET PO SCH (09:25)
[2017-08-12] MEDS: methylPREDNISolone SOD SUC 40 MG/1 ML VIAL IV SCH (09:26)
[2017-08-12] MEDS: NYSTATIN CREAM 15 GM TUBE TOP SCH ×2 (09:26→20:30)
[2017-08-12] MEDS: DOCUSATE SODIUM 100 MG CAPSULE PO SCH ×2 (09:26→20:30)
[2017-08-12] MEDS: INSULIN GLARGINE 100 UNIT/ML SUBCUT SCH (20:30)
[2017-08-13] MEDS: INSULIN REGULAR 100 UNIT/ML SUBCUT SCH ×3 (01:37→12:56)
[2017-08-13 06:29] LABS: Basophils % 0.2 % (0.0-0.8); Eosinophils # 0.3 10*3/uL (0.0-0.87); Eosinophils % 3.3 % (0.00-10.9); Hematocrit 34.2 VOL% (35.7-47.0); Hemoglobin 11.3 GM/DL (12.0-16.0); Immature Granulocytes % 5.2 %; Immature Granulocytes Absolute 0.42 #; Lymphocytes # 1.3 10*3/uL (1.4-4.0); Lymphocytes % 16.5 % (21.3-54.2); Mean Corpuscular Hemoglobin 28 PG (27-34); Mean Corpuscular Volume 84.4 FL (87-102); Mean Platelet Volume 10.9 FL (9.6-12.0); Monocytes # 0.9 10*3/uL (0.11-0.8); Monocytes % 11.2 % (1.7-12.7); NRBC # 0.02 10*3/uL; Neutrophils # 5.1 10*3/uL (1.4-7.4); Neutrophils % 63.6 % (38.7-73.9); Platelet Count 187 T/CUMM (130-400); Red Blood Count 4.05 MC/CUMM (3.8-5.5); White Blood Count 8.1 T/CUMM (4-12)
[2017-08-13 06:55] LABS: Eosinophils 2 % (0-10); Hypochromasia 1+; Lymphocytes 20 % (20-55); Segmented Neutrophils 69 % (50-85); Total Cells Counted 100
[2017-08-13 06:56] LABS: Microcytosis Slight; Platelet Estimate Adequate
[2017-08-13 07:05] LABS: Calcium 8.2 MG/DL (8.5-10.1); Magnesium 2.5 MG/DL (1.8-2.4); Osmolality,Calculated 290.5 MOS/KG (273-304); Potassium 4.7 MMOL/L (3.5-5.1)
[2017-08-13] MEDS ORDERED: predniSONE 20 MG TABLET PO SCH (09:00)
[2017-08-13] MEDS ORDERED: LEVOFLOXACIN 250 MG TABLET PO SCH (09:00)
[2017-08-13] MEDS: BISOPROLOL 5 MG TABLET PO SCH (09:02)
[2017-08-13] MEDS: ALPRAZolam 0.25 MG TABLET PO SCH (09:02)
[2017-08-13] MEDS: amLODIPine 10 MG TABLET PO SCH (09:02)
[2017-08-13] MEDS: CITALOPRAM 20 MG TABLET PO SCH (09:02)
[2017-08-13] MEDS: DOCUSATE SODIUM 100 MG CAPSULE PO SCH (09:02)
[2017-08-13] MEDS: DOXAZOSIN 1 MG TABLET PO SCH (09:02)
[2017-08-13] MEDS: ASPIRIN EC 81 MG TABLET PO SCH (09:03)
[2017-08-13] MEDS: PRAVASTATIN 20 MG TABLET PO SCH (09:03)
[2017-08-13] MEDS: CLOPIDOGREL 75 MG TABLET PO SCH (09:03)
[2017-08-13] MEDS: NYSTATIN CREAM 15 GM TUBE TOP SCH (09:03)
[2017-08-13 12:36] VITALS: BP 147/64
== END 2017-08-13 15:00 | DRG 870 ==
LOC: EDUNIT# → EDBD → N.ED 18:44 → SUATTDRO 20:34 → N.EDINP 20:34 → N.ICU 21:19 → N.5E 08-06 18:44
PROVIDERS: ADMIT Internal Medicine; ATTEND Internal Medicine Nephrology

== ENCOUNTER 2018-04-17 09:39 | Inpatient (IN) ==
[2018-04-17] MEDS ORDERED: hydrALAZINE 20 MG/1 ML VIAL IV STA (10:02)
[2018-04-17] MEDS ORDERED: ALBUTEROL/IPRATROPIUM 3 ML NEB RESP TX STA (10:02)
[2018-04-17] MEDS ORDERED: methylPREDNISolone SOD SUC 125 MG/2 ML VIAL IV STA (10:02)
[2018-04-17] MEDS ORDERED: ONDANSETRON 4 MG/2 ML VIAL IV STA (10:02)
[2018-04-17] MEDS ORDERED: LEVOFLOXACIN INJ 750 MG in PREMIX 1 EACH IV STA (10:02)
[2018-04-17 10:33] LABS: Basophils # 0.1 10*3/uL (0.0-0.2); Basophils % 0.9 % (0.0-0.8); Eosinophils # 0.2 10*3/uL (0.0-0.87); Eosinophils % 3.4 % (0.00-10.9); Hematocrit 38.9 VOL% (35.7-47.0); Hemoglobin 12.1 GM/DL (12.0-16.0); Immature Granulocytes % 0.4 %; Immature Granulocytes Absolute 0.03 #; Lymphocytes # 0.7 10*3/uL (1.4-4.0); Lymphocytes % 10.1 % (21.3-54.2); Mean Corpuscular HGB Conc 31.1 GM/DL (32-36); Mean Corpuscular Hemoglobin 27 PG (27-34); Mean Corpuscular Volume 85.1 FL (87-102); Mean Platelet Volume 10.3 FL (9.6-12.0); Monocytes # 0.6 10*3/uL (0.11-0.8); Monocytes % 8.3 % (1.7-12.7); Neutrophils # 5.2 10*3/uL (1.4-7.4); Neutrophils % 76.9 % (38.7-73.9); Platelet Count 174 T/CUMM (130-400); Red Blood Count 4.57 MC/CUMM (3.8-5.5); Red Cell Distribution Width 16.4 % (9.3-17.3); White Blood Count 6.8 T/CUMM (4-12)
[2018-04-17 10:50] LABS: PT Patient Result 10.8 SECS; Partial Thromboplastin Time 27.5 SECS (0-40)
[2018-04-17 10:58] LABS: Alanine Aminotransferase 33 U/L (13-56); Albumin 3.1 G/DL (3.4-5.0); Alkaline Phosphatase 91 U/L (45-117); Aspartate Amino Transferase 21 U/L (0-37); Blood Urea Nitrogen 25 MG/DL (7-18); Calcium 8.7 MG/DL (8.5-10.1); Glucose 141 MG/DL (74-106); Osmolality,Calculated 280.7 MOS/KG (273-304); Potassium 5.1 MMOL/L (3.5-5.1); Sodium 138 MMOL/L (136-145); Total Protein 7.4 G/DL (6.4-8.3); Troponin I < 0.015 NG/ML (0.00-0.045)
[2018-04-17] MEDS ORDERED: ACETAMINOPHEN 500 MG TABLET PO PRN (11:27)
[2018-04-17] MEDS ORDERED: ONDANSETRON 4 MG/2 ML VIAL IV PRN (11:27)
[2018-04-17] MEDS ORDERED: GLUCAGON 1 MG VIAL IM PRN (11:27)
[2018-04-17] MEDS ORDERED: DEXTROSE 50% 25 GM/50 ML VIAL IV PRN (11:27)
[2018-04-17] MEDS ORDERED: FUROSEMIDE 40 MG/4 ML VIAL ONE (12:31)
[2018-04-17] MEDS ORDERED: FUROSEMIDE 40 MG/4 ML VIAL IV ONE (12:33)
[2018-04-17] MEDS: ALPRAZolam 0.25 MG TABLET PO PRN (13:30)
[2018-04-17] MEDS: INSULIN REGULAR 100 UNIT/ML SUBCUT SCH ×3 (13:35→21:22)
[2018-04-17] MEDS: ALBUTEROL/IPRATROPIUM 3 ML NEB RESP TX SCH ×2 (14:24→19:40)
[2018-04-17] MEDS: FUROSEMIDE 20 MG/2 ML VIAL IV SCH (16:35)
[2018-04-17] MEDS: INSULIN GLARGINE 100 UNIT/ML SUBCUT SCH ×2 (21:21→21:23)
[2018-04-17] MEDS: methylPREDNISolone SOD SUC 125 MG/2 ML VIAL IV SCH (21:22)
[2018-04-17] MEDS: PRAVASTATIN 20 MG TABLET PO SCH (21:22)
[2018-04-17] MEDS: LABETALOL 100 MG TABLET PO SCH (21:22)
[2018-04-18] MEDS: ALBUTEROL/IPRATROPIUM 3 ML NEB RESP TX SCH ×5 (00:47→23:56)
[2018-04-18 04:14] LABS: Basophils % 0.1 % (0.0-0.8); Hematocrit 36.3 VOL% (35.7-47.0); Immature Granulocytes Absolute 0.09 #; Lymphocytes # 0.4 10*3/uL (1.4-4.0); Lymphocytes % 4.7 % (21.3-54.2); Mean Corpuscular HGB Conc 30.3 GM/DL (32-36); Mean Corpuscular Hemoglobin 26 PG (27-34); Mean Corpuscular Volume 85.4 FL (87-102); Mean Platelet Volume 10.7 FL (9.6-12.0); Monocytes # 0.1 10*3/uL (0.11-0.8); Monocytes % 0.9 % (1.7-12.7); Neutrophils # 8.7 10*3/uL (1.4-7.4); Neutrophils % 93.3 % (38.7-73.9); Platelet Count 179 T/CUMM (130-400); Red Blood Count 4.25 MC/CUMM (3.8-5.5); Red Cell Distribution Width 16.5 % (9.3-17.3); White Blood Count 9.4 T/CUMM (4-12)
[2018-04-18 04:49] LABS: Calcium 8.8 MG/DL (8.5-10.1); Osmolality,Calculated 286.1 MOS/KG (273-304); Potassium 5.4 MMOL/L (3.5-5.1)
[2018-04-18 05:03] LABS: Band Neutrophils 3 % (0-10); Lymphocytes 5 % (20-55); Microcytosis 1+; Platelet Estimate Adequate; Segmented Neutrophils 91 % (50-85); Total Cells Counted 100
[2018-04-18] MEDS ORDERED: cloNIDine 0.1 MG TABLET PO ONE (05:46)
[2018-04-18] MEDS ORDERED: POTASSIUM CHLORIDE 10 MEQ TABLET PO SCH (08:00)
[2018-04-18] MEDS ORDERED: BISOPROLOL 5 MG TABLET PO SCH (09:00)
[2018-04-18] MEDS: INSULIN REGULAR 100 UNIT/ML SUBCUT SCH ×4 (09:26→21:38)
[2018-04-18] MEDS: methylPREDNISolone SOD SUC 125 MG/2 ML VIAL IV SCH ×2 (09:27→21:38)
[2018-04-18] MEDS: amLODIPine 10 MG TABLET PO SCH (09:27)
[2018-04-18] MEDS: FUROSEMIDE 20 MG/2 ML VIAL IV SCH ×2 (09:27→16:41)
[2018-04-18] MEDS: CITALOPRAM 20 MG TABLET PO SCH (09:28)
[2018-04-18] MEDS: ASPIRIN EC 81 MG TABLET PO SCH (09:28)
[2018-04-18] MEDS: LABETALOL 100 MG TABLET PO SCH (09:28)
[2018-04-18] MEDS: CLOPIDOGREL 75 MG TABLET PO SCH (09:28)
[2018-04-18] MEDS: PANTOPRAZOLE 40 MG TABLET PO SCH (09:28)
[2018-04-18] MEDS: sitaGLIPtin 25 MG TABLET PO SCH (09:29)
[2018-04-18] MEDS: DOXAZOSIN 1 MG TABLET PO SCH (09:45)
[2018-04-18] MEDS: LEVOFLOXACIN INJ 750 MG in PREMIX 1 EACH IV SCH (09:46)
[2018-04-18] MEDS: INSULIN GLARGINE 100 UNIT/ML SUBCUT SCH ×2 (21:36→21:39)
[2018-04-18] MEDS: LABETALOL 200 MG TABLET PO SCH (21:39)
[2018-04-18] MEDS: PRAVASTATIN 20 MG TABLET PO SCH (21:39)
[2018-04-18] MEDS: ALPRAZolam 0.25 MG TABLET PO PRN (21:39)
[2018-04-19] MEDS: ALBUTEROL/IPRATROPIUM 3 ML NEB RESP TX SCH ×5 (03:25→20:06)
[2018-04-19 05:10] LABS: Basophils % 0.2 % (0.0-0.8); Hematocrit 36.3 VOL% (35.7-47.0); Hemoglobin 11.4 GM/DL (12.0-16.0); Immature Granulocytes % 1.1 %; Immature Granulocytes Absolute 0.13 #; Lymphocytes # 0.3 10*3/uL (1.4-4.0); Mean Corpuscular HGB Conc 31.4 GM/DL (32-36); Mean Corpuscular Hemoglobin 26 PG (27-34); Mean Platelet Volume 11.3 FL (9.6-12.0); Monocytes # 0.2 10*3/uL (0.11-0.8); Neutrophils # 10.8 10*3/uL (1.4-7.4); Neutrophils % 93.7 % (38.7-73.9); Platelet Count 221 T/CUMM (130-400); Red Blood Count 4.32 MC/CUMM (3.8-5.5); White Blood Count 11.5 T/CUMM (4-12)
[2018-04-19 05:40] LABS: Calcium 8.5 MG/DL (8.5-10.1); Osmolality,Calculated 292.1 MOS/KG (273-304); Potassium 5.2 MMOL/L (3.5-5.1)
[2018-04-19 05:49] LABS: Band Neutrophils 4 % (0-10); Lymphocytes 5 % (20-55); Platelet Estimate Normal; Segmented Neutrophils 89 % (50-85); Total Cells Counted 100
[2018-04-19 05:50] LABS: Polychromasia 2+
[2018-04-19] MEDS: amLODIPine 10 MG TABLET PO SCH (09:26)
[2018-04-19] MEDS: CITALOPRAM 20 MG TABLET PO SCH (09:26)
[2018-04-19] MEDS: ASPIRIN EC 81 MG TABLET PO SCH (09:26)
[2018-04-19] MEDS: sitaGLIPtin 25 MG TABLET PO SCH (09:26)
[2018-04-19] MEDS: CLOPIDOGREL 75 MG TABLET PO SCH (09:26)
[2018-04-19] MEDS: LABETALOL 200 MG TABLET PO SCH ×2 (09:26→21:36)
[2018-04-19] MEDS: INSULIN REGULAR 100 UNIT/ML SUBCUT SCH ×4 (09:27→21:37)
[2018-04-19] MEDS: DOXAZOSIN 1 MG TABLET PO SCH (09:27)
[2018-04-19] MEDS: methylPREDNISolone SOD SUC 125 MG/2 ML VIAL IV SCH (09:27)
[2018-04-19] MEDS: PANTOPRAZOLE 40 MG TABLET PO SCH (09:27)
[2018-04-19] MEDS: FUROSEMIDE 20 MG/2 ML VIAL IV SCH (09:28)
[2018-04-19] MEDS: LEVOFLOXACIN INJ 750 MG in PREMIX 1 EACH IV SCH (09:29)
[2018-04-19] MEDS: POLYETHYLENE GLYCOL POWDER 17 GM PACK PO PRN (12:27)
[2018-04-19] MEDS: methylPREDNISolone SOD SUC 40 MG/1 ML VIAL IV SCH ×2 (12:50→23:56)
[2018-04-19] MEDS: PRAVASTATIN 20 MG TABLET PO SCH (21:36)
[2018-04-19] MEDS: INSULIN GLARGINE 100 UNIT/ML SUBCUT SCH ×2 (21:37→22:57)
[2018-04-20] MEDS: ALBUTEROL/IPRATROPIUM 3 ML NEB RESP TX SCH ×7 (00:05→22:51)
[2018-04-20 06:33] LABS: Basophils % 0.1 % (0.0-0.8); Hemoglobin 10.5 GM/DL (12.0-16.0); Immature Granulocytes % 2.1 %; Immature Granulocytes Absolute 0.18 #; Lymphocytes # 0.3 10*3/uL (1.4-4.0); Lymphocytes % 3.1 % (21.3-54.2); Mean Corpuscular HGB Conc 30.9 GM/DL (32-36); Mean Corpuscular Hemoglobin 27 PG (27-34); Mean Corpuscular Volume 86.1 FL (87-102); Mean Platelet Volume 10.3 FL (9.6-12.0); Monocytes # 0.3 10*3/uL (0.11-0.8); Monocytes % 2.9 % (1.7-12.7); Neutrophils % 91.8 % (38.7-73.9); Platelet Count 180 T/CUMM (130-400); Red Blood Count 3.95 MC/CUMM (3.8-5.5); Red Cell Distribution Width 17.1 % (9.3-17.3); White Blood Count 8.7 T/CUMM (4-12)
[2018-04-20 06:52] LABS: Hypochromasia 1+; Lymphocytes 6 % (20-55); Microcytosis Slight; Platelet Estimate Adequate; Segmented Neutrophils 90 % (50-85); Total Cells Counted 100
[2018-04-20 07:08] LABS: Calcium 8.5 MG/DL (8.5-10.1); Osmolality,Calculated 294.2 MOS/KG (273-304); Potassium 5.3 MMOL/L (3.5-5.1)
[2018-04-20] MEDS: INSULIN REGULAR 100 UNIT/ML SUBCUT SCH ×4 (09:54→21:42)
[2018-04-20] MEDS: amLODIPine 10 MG TABLET PO SCH (09:55)
[2018-04-20] MEDS: sitaGLIPtin 25 MG TABLET PO SCH (09:55)
[2018-04-20] MEDS: DOXAZOSIN 1 MG TABLET PO SCH (09:55)
[2018-04-20] MEDS: LEVOFLOXACIN INJ 750 MG in PREMIX 1 EACH IV SCH (09:55)
[2018-04-20] MEDS: PANTOPRAZOLE 40 MG TABLET PO SCH (09:55)
[2018-04-20] MEDS: LABETALOL 200 MG TABLET PO SCH ×2 (09:55→21:42)
[2018-04-20] MEDS: CITALOPRAM 20 MG TABLET PO SCH (09:55)
[2018-04-20] MEDS: ASPIRIN EC 81 MG TABLET PO SCH (09:55)
[2018-04-20] MEDS: CLOPIDOGREL 75 MG TABLET PO SCH (09:55)
[2018-04-20] MEDS: methylPREDNISolone SOD SUC 40 MG/1 ML VIAL IV SCH (11:58)
[2018-04-20] MEDS: INSULIN GLARGINE 100 UNIT/ML SUBCUT SCH ×2 (21:42→21:44)
[2018-04-20] MEDS: PRAVASTATIN 20 MG TABLET PO SCH (21:42)
[2018-04-21] MEDS: methylPREDNISolone SOD SUC 40 MG/1 ML VIAL IV SCH ×3 (00:09→23:56)
[2018-04-21] MEDS: ALBUTEROL/IPRATROPIUM 3 ML NEB RESP TX SCH ×6 (02:39→23:33)
[2018-04-21 05:27] LABS: Basophils % 0.1 % (0.0-0.8); Hematocrit 33.3 VOL% (35.7-47.0); Hemoglobin 10.1 GM/DL (12.0-16.0); Immature Granulocytes % 1.6 %; Immature Granulocytes Absolute 0.13 #; Lymphocytes # 0.2 10*3/uL (1.4-4.0); Mean Corpuscular HGB Conc 30.3 GM/DL (32-36); Mean Corpuscular Hemoglobin 26 PG (27-34); Mean Corpuscular Volume 85.8 FL (87-102); Mean Platelet Volume 10.8 FL (9.6-12.0); Monocytes # 0.4 10*3/uL (0.11-0.8); Monocytes % 5.3 % (1.7-12.7); NRBC # 0.03 10*3/uL; Neutrophils # 7.2 10*3/uL (1.4-7.4); Platelet Count 200 T/CUMM (130-400); Red Blood Count 3.88 MC/CUMM (3.8-5.5); Red Cell Distribution Width 17.2 % (9.3-17.3)
[2018-04-21 05:49] LABS: Band Neutrophils 2 % (0-10); Hypochromasia 1+; Lymphocytes 2 % (20-55); Microcytosis Slight; Nucleated Red Blood Cells 1 (0-5); Ovalocytes Slight; Platelet Estimate Adequate; Segmented Neutrophils 94 % (50-85); Total Cells Counted 100
[2018-04-21 05:57] LABS: Calcium 8.3 MG/DL (8.5-10.1); Osmolality,Calculated 299.2 MOS/KG (273-304); Potassium 5.1 MMOL/L (3.5-5.1)
[2018-04-21] MEDS: INSULIN REGULAR 100 UNIT/ML SUBCUT SCH ×4 (09:22→21:22)
[2018-04-21] MEDS: LABETALOL 200 MG TABLET PO SCH ×2 (09:23→21:22)
[2018-04-21] MEDS: CLOPIDOGREL 75 MG TABLET PO SCH (09:23)
[2018-04-21] MEDS: amLODIPine 10 MG TABLET PO SCH (09:23)
[2018-04-21] MEDS: CITALOPRAM 20 MG TABLET PO SCH (09:23)
[2018-04-21] MEDS: sitaGLIPtin 25 MG TABLET PO SCH (09:23)
[2018-04-21] MEDS: ASPIRIN EC 81 MG TABLET PO SCH (09:23)
[2018-04-21] MEDS: DOXAZOSIN 1 MG TABLET PO SCH (09:23)
[2018-04-21] MEDS: PANTOPRAZOLE 40 MG TABLET PO SCH (09:23)
[2018-04-21] MEDS: POLYETHYLENE GLYCOL POWDER 17 GM PACK PO PRN (09:23)
[2018-04-21] MEDS: LEVOFLOXACIN INJ 750 MG in PREMIX 1 EACH IV SCH (09:24)
[2018-04-21] MEDS: ISOSORBIDE DINITRATE 20 MG TABLET PO SCH ×2 (15:07→21:24)
[2018-04-21] MEDS: INSULIN GLARGINE 100 UNIT/ML SUBCUT SCH ×2 (21:22→21:41)
[2018-04-21] MEDS: PRAVASTATIN 20 MG TABLET PO SCH (21:22)
[2018-04-22] MEDS: ALBUTEROL/IPRATROPIUM 3 ML NEB RESP TX SCH ×3 (03:39→10:42)
[2018-04-22 05:36] LABS: Eosinophils % 0.2 % (0.00-10.9); Hematocrit 32.9 VOL% (35.7-47.0); Hemoglobin 10.2 GM/DL (12.0-16.0); Immature Granulocytes % 3.5 %; Immature Granulocytes Absolute 0.22 #; Lymphocytes # 0.2 10*3/uL (1.4-4.0); Lymphocytes % 3.5 % (21.3-54.2); Mean Corpuscular Hemoglobin 26 PG (27-34); Mean Corpuscular Volume 82.9 FL (87-102); Mean Platelet Volume 10.6 FL (9.6-12.0); Monocytes # 0.2 10*3/uL (0.11-0.8); NRBC # 0.02 10*3/uL; Neutrophils # 5.7 10*3/uL (1.4-7.4); Neutrophils % 89.8 % (38.7-73.9); Platelet Count 192 T/CUMM (130-400); Red Blood Count 3.97 MC/CUMM (3.8-5.5); Red Cell Distribution Width 17.5 % (9.3-17.3); White Blood Count 6.3 T/CUMM (4-12)
[2018-04-22 06:00] LABS: Osmolality,Calculated 301.1 MOS/KG (273-304); Potassium 5.1 MMOL/L (3.5-5.1)
[2018-04-22 06:02] LABS: Hypochromasia 1+; Lymphocytes 4 % (20-55); Nucleated Red Blood Cells 1 (0-5); Platelet Estimate Adequate; Segmented Neutrophils 94 % (50-85); Total Cells Counted 100
[2018-04-22 06:03] LABS: Microcytosis Slight
[2018-04-22] MEDS ORDERED: ISOSORBIDE DINITRATE 20 MG TABLET PO SCH (09:00)
[2018-04-22] MEDS: ASPIRIN EC 81 MG TABLET PO SCH (09:08)
[2018-04-22] MEDS: INSULIN REGULAR 100 UNIT/ML SUBCUT SCH ×2 (09:08→11:55)
[2018-04-22] MEDS: sitaGLIPtin 25 MG TABLET PO SCH (09:08)
[2018-04-22] MEDS: LABETALOL 200 MG TABLET PO SCH (09:09)
[2018-04-22] MEDS: PANTOPRAZOLE 40 MG TABLET PO SCH (09:09)
[2018-04-22] MEDS: amLODIPine 10 MG TABLET PO SCH (09:09)
[2018-04-22] MEDS: DOXAZOSIN 1 MG TABLET PO SCH (09:09)
[2018-04-22] MEDS: LEVOFLOXACIN INJ 750 MG in PREMIX 1 EACH IV SCH (09:10)
[2018-04-22] MEDS: CLOPIDOGREL 75 MG TABLET PO SCH (09:10)
[2018-04-22] MEDS: CITALOPRAM 20 MG TABLET PO SCH (09:10)
[2018-04-22 11:39] VITALS: BP 143/63
[2018-04-22] MEDS: methylPREDNISolone SOD SUC 40 MG/1 ML VIAL IV SCH (13:17)
== END 2018-04-22 14:04 | disposition home health service (06) | DRG 291 ==
LOC: N.ED 09:39 → N.EDINP 11:26 → N.TELES 11:59
PROVIDERS: ADMIT Family Medicine; ATTEND Family Medicine

== ENCOUNTER 2018-04-24 05:30 | Inpatient (IN) ==
[2018-04-24 06:49] LABS: ABG Base Excess -3.1 MMOL/L (-2.5-2.5); ABG HCO3 21.8 MMOL/L (20-26); ABG Oxygen Saturation 95.6 % (95-100); ABG PCO2 39.9 MM HG (35-48); ABG PH 7.354 (7.35-7.45); ABG PO2 79.6 MM HG (80-95)
[2018-04-24 07:22] LABS: Basophils % 0.1 % (0.0-0.8); Eosinophils # 0.3 10*3/uL (0.0-0.87); Eosinophils % 2.6 % (0.00-10.9); Hematocrit 35.8 VOL% (35.7-47.0); Immature Granulocytes % 2.1 %; Immature Granulocytes Absolute 0.24 #; Lymphocytes # 0.6 10*3/uL (1.4-4.0); Lymphocytes % 5.5 % (21.3-54.2); Mean Corpuscular HGB Conc 30.7 GM/DL (32-36); Mean Corpuscular Hemoglobin 26 PG (27-34); Mean Corpuscular Volume 83.8 FL (87-102); Monocytes # 1.1 10*3/uL (0.11-0.8); Monocytes % 9.5 % (1.7-12.7); Neutrophils # 9.3 10*3/uL (1.4-7.4); Neutrophils % 80.2 % (38.7-73.9); Platelet Count 198 T/CUMM (130-400); Red Blood Count 4.27 MC/CUMM (3.8-5.5); Red Cell Distribution Width 17.9 % (9.3-17.3); White Blood Count 11.6 T/CUMM (4-12)
[2018-04-24 07:41] LABS: Albumin 3.2 G/DL (3.4-5.0); Bilirubin,Total 0.6 MG/DL (0.2-1.0); Calcium 8.1 MG/DL (8.5-10.1); Osmolality,Calculated 299.5 MOS/KG (273-304); Potassium 4.6 MMOL/L (3.5-5.1); Total Protein 6.2 G/DL (6.4-8.3)
[2018-04-24] MEDS ORDERED: FUROSEMIDE 40 MG/4 ML VIAL IV STA (09:13)
[2018-04-24] MEDS ORDERED: ACETAMINOPHEN 325 MG TABLET PO PRN (09:32)
[2018-04-24] MEDS ORDERED: ONDANSETRON 4 MG/2 ML VIAL IV PRN (09:32)
[2018-04-24] MEDS ORDERED: ALBUTEROL/IPRATROPIUM 3 ML NEB RESP TX PRN (09:36)
[2018-04-24] MEDS ORDERED: ALPRAZolam 0.25 MG TABLET PO PRN (09:36)
[2018-04-24 10:39] LABS: Amorphous Crystals,Urine Occasional /HPF (Few); Apearance,Urine Slightly Hazy (Clear); Bacteria,Urine Few /HPF (Few); Bilirubin,Urine Negative (Negative); Blood, Urine Negative (Negative); Glucose,Urine (UA) 50 mg/dL (Negative); Ketones,Urine Negative (Negative); Mucus,Urine Occasional /LPF (Occasional); Nitrite,Urine Negative (Negative); Protein,Urine 100 MG/DL; RBC,Urine 1 /HPF (0-4); Urine Color Yellow (Yellow); Urine Specific Gravity 1.013 (1.001-1.035); Urine Urobilinogen < 2.0 EU/DL (0.2-1.0); WBC,Urine 1 /HPF (0-6)
[2018-04-24] MEDS ORDERED: LEVOFLOXACIN 500 MG TABLET PO ONE (14:30)
[2018-04-24] MEDS: ISOSORBIDE DINITRATE 20 MG TABLET PO SCH ×2 (14:45→21:27)
[2018-04-24] MEDS: INSULIN LISPRO 100 UNIT/ML SUBCUT SCH ×2 (16:25→21:24)
[2018-04-24] MEDS: INSULIN GLARGINE 100 UNIT/ML SUBCUT SCH (21:24)
[2018-04-24] MEDS: DOCUSATE SODIUM 100 MG CAPSULE PO SCH (21:26)
[2018-04-24] MEDS: LABETALOL 200 MG TABLET PO SCH (21:26)
[2018-04-24] MEDS: DONEPEZIL 5 MG TABLET PO SCH (21:27)
[2018-04-25 05:27] LABS: Basophils % 0.1 % (0.0-0.8); Eosinophils # 0.2 10*3/uL (0.0-0.87); Hematocrit 34.4 VOL% (35.7-47.0); Immature Granulocytes % 1.9 %; Immature Granulocytes Absolute 0.22 #; Lymphocytes # 0.8 10*3/uL (1.4-4.0); Lymphocytes % 6.9 % (21.3-54.2); Mean Corpuscular Hemoglobin 26 PG (27-34); Mean Corpuscular Volume 80.9 FL (87-102); Mean Platelet Volume 10.6 FL (9.6-12.0); Monocytes # 1.2 10*3/uL (0.11-0.8); Monocytes % 10.2 % (1.7-12.7); Neutrophils # 9.1 10*3/uL (1.4-7.4); Neutrophils % 78.9 % (38.7-73.9); Platelet Count 183 T/CUMM (130-400); Red Blood Count 4.25 MC/CUMM (3.8-5.5); White Blood Count 11.5 T/CUMM (4-12)
[2018-04-25 05:42] LABS: Albumin 2.7 G/DL (3.4-5.0); Bilirubin,Total 1.2 MG/DL (0.2-1.0); Calcium 8.4 MG/DL (8.5-10.1); Osmolality,Calculated 296.5 MOS/KG (273-304); Potassium 4.4 MMOL/L (3.5-5.1); Total Protein 6.1 G/DL (6.4-8.3)
[2018-04-25] MEDS: INSULIN LISPRO 100 UNIT/ML SUBCUT SCH ×4 (08:42→21:11)
[2018-04-25] MEDS ORDERED: FLUCONAZOLE 150 MG TABLET PO ONE (09:00)
[2018-04-25] MEDS ORDERED: DOXAZOSIN 1 MG TABLET PO SCH (09:00)
[2018-04-25] MEDS: LABETALOL 200 MG TABLET PO SCH ×2 (09:21→21:07)
[2018-04-25] MEDS: amLODIPine 10 MG TABLET PO SCH (09:22)
[2018-04-25] MEDS: ASPIRIN EC 81 MG TABLET PO SCH (09:22)
[2018-04-25] MEDS: sitaGLIPtin 25 MG TABLET PO SCH (09:22)
[2018-04-25] MEDS: CITALOPRAM 20 MG TABLET PO SCH (09:22)
[2018-04-25] MEDS: PRAVASTATIN 20 MG TABLET PO SCH (09:22)
[2018-04-25] MEDS: LEVOFLOXACIN 250 MG TABLET PO SCH (09:22)
[2018-04-25] MEDS: predniSONE 10 MG TABLET PO SCH (09:22)
[2018-04-25] MEDS: CLOPIDOGREL 75 MG TABLET PO SCH (09:22)
[2018-04-25] MEDS: ISOSORBIDE DINITRATE 20 MG TABLET PO SCH ×3 (09:23→21:07)
[2018-04-25] MEDS: DOCUSATE SODIUM 100 MG CAPSULE PO SCH ×2 (09:23→21:07)
[2018-04-25] MEDS: PANTOPRAZOLE 40 MG TABLET PO SCH (09:23)
[2018-04-25] MEDS: ZINC OXIDE PASTE 113 GM TUBE TOP SCH ×2 (11:47→21:17)
[2018-04-25] MEDS: NYSTATIN POWDER 15 GM BOTTLE TOP SCH ×2 (11:48→21:17)
[2018-04-25] MEDS: FUROSEMIDE 40 MG TABLET PO SCH (16:02)
[2018-04-25] MEDS: DONEPEZIL 5 MG TABLET PO SCH (21:07)
[2018-04-25] MEDS: INSULIN GLARGINE 100 UNIT/ML SUBCUT SCH (21:08)
[2018-04-26 05:52] LABS: Calcium 8.6 MG/DL (8.5-10.1); Osmolality,Calculated 293.7 MOS/KG (273-304); Potassium 4.1 MMOL/L (3.5-5.1)
[2018-04-26 05:53] LABS: Basophils % 0.1 % (0.0-0.8); Eosinophils # 0.3 10*3/uL (0.0-0.87); Hematocrit 33.7 VOL% (35.7-47.0); Hemoglobin 10.3 GM/DL (12.0-16.0); Immature Granulocytes % 2.6 %; Immature Granulocytes Absolute 0.35 #; Lymphocytes # 0.9 10*3/uL (1.4-4.0); Lymphocytes % 6.7 % (21.3-54.2); Mean Corpuscular HGB Conc 30.6 GM/DL (32-36); Mean Corpuscular Hemoglobin 26 PG (27-34); Mean Corpuscular Volume 84.3 FL (87-102); Mean Platelet Volume 10.8 FL (9.6-12.0); Monocytes # 1.4 10*3/uL (0.11-0.8); Monocytes % 10.6 % (1.7-12.7); Neutrophils # 10.4 10*3/uL (1.4-7.4); Platelet Count 175 T/CUMM (130-400); Red Cell Distribution Width 18.1 % (9.3-17.3); White Blood Count 13.3 T/CUMM (4-12)
[2018-04-26 06:06] LABS: Platelet Estimate Normal
[2018-04-26 06:07] LABS: Burr Cells Few
[2018-04-26] MEDS: INSULIN LISPRO 100 UNIT/ML SUBCUT SCH ×3 (07:22→17:02)
[2018-04-26] MEDS: sitaGLIPtin 25 MG TABLET PO SCH (08:07)
[2018-04-26] MEDS: FUROSEMIDE 40 MG TABLET PO SCH ×2 (08:07→15:01)
[2018-04-26] MEDS: ISOSORBIDE DINITRATE 20 MG TABLET PO SCH ×2 (08:07→15:01)
[2018-04-26] MEDS: amLODIPine 10 MG TABLET PO SCH (08:07)
[2018-04-26] MEDS: CLOPIDOGREL 75 MG TABLET PO SCH (08:08)
[2018-04-26] MEDS: CITALOPRAM 20 MG TABLET PO SCH (08:19)
[2018-04-26] MEDS: LABETALOL 200 MG TABLET PO SCH (08:19)
[2018-04-26] MEDS: ASPIRIN EC 81 MG TABLET PO SCH (08:19)
[2018-04-26] MEDS: PANTOPRAZOLE 40 MG TABLET PO SCH (08:19)
[2018-04-26] MEDS: DOCUSATE SODIUM 100 MG CAPSULE PO SCH (08:19)
[2018-04-26] MEDS: LEVOFLOXACIN 250 MG TABLET PO SCH (08:20)
[2018-04-26] MEDS: PRAVASTATIN 20 MG TABLET PO SCH (08:20)
[2018-04-26] MEDS: predniSONE 10 MG TABLET PO SCH (08:20)
[2018-04-26] MEDS: ZINC OXIDE PASTE 113 GM TUBE TOP SCH (08:22)
[2018-04-26] MEDS: NYSTATIN POWDER 15 GM BOTTLE TOP SCH (08:22)
[2018-04-26] MEDS ORDERED: DOXAZOSIN 1 MG TABLET PO SCH (09:00)
[2018-04-26] MEDS ORDERED: DOXAZOSIN 4 MG TABLET PO SCH (09:00)
[2018-04-26 10:53] LABS: Troponin I 0.099 NG/ML (0.00-0.045)
[2018-04-26] MEDS ORDERED: DOXAZOSIN 1 MG TABLET PO ONE (11:07)
[2018-04-26 13:53] VITALS: BP 170/60
== END 2018-04-26 16:33 | disposition home health service (06) | DRG 291 ==
LOC: N.ED 05:30 → N.EDINP 09:32 → N.3E 12:34
PROVIDERS: ADMIT Family Medicine; ATTEND Family Medicine

== ENCOUNTER 2018-06-13 08:45 | Inpatient (IN) ==
[2018-06-13] MEDS ORDERED: methylPREDNISolone SOD SUC 125 MG/2 ML VIAL IV STA (09:07)
[2018-06-13] MEDS ORDERED: FUROSEMIDE 100 MG/10 ML VIAL IV STA (09:07)
[2018-06-13] MEDS ORDERED: ALBUTEROL 2.5 MG/3 ML NEB RESP TX STA (09:07)
[2018-06-13 09:17] LABS: Basophils % 0.3 % (0.0-0.8); Eosinophils # 0.2 10*3/uL (0.0-0.87); Eosinophils % 1.9 % (0.00-10.9); Hematocrit 31.7 VOL% (35.7-47.0); Hemoglobin 9.7 GM/DL (12.0-16.0); Immature Granulocytes % 1.7 %; Immature Granulocytes Absolute 0.16 #; Lymphocytes # 0.4 10*3/uL (1.4-4.0); Lymphocytes % 4.2 % (21.3-54.2); Mean Corpuscular HGB Conc 30.6 GM/DL (32-36); Mean Corpuscular Hemoglobin 26 PG (27-34); Mean Corpuscular Volume 84.8 FL (87-102); Mean Platelet Volume 10.4 FL (9.6-12.0); Monocytes # 0.9 10*3/uL (0.11-0.8); Monocytes % 9.5 % (1.7-12.7); Neutrophils # 7.7 10*3/uL (1.4-7.4); Neutrophils % 82.4 % (38.7-73.9); Platelet Count 175 T/CUMM (130-400); Red Blood Count 3.74 MC/CUMM (3.8-5.5); Red Cell Distribution Width 17.8 % (9.3-17.3); White Blood Count 9.4 T/CUMM (4-12)
[2018-06-13] MEDS ORDERED: FUROSEMIDE 40 MG/4 ML VIAL ONE (09:17)
[2018-06-13 09:27] LABS: INR 1.1; PT Patient Result 11.4 SECS; Partial Thromboplastin Time 24.8 SECS (0-40)
[2018-06-13 09:29] LABS: ABG Base Excess 4.5 MMOL/L (-2.5-2.5); ABG HCO3 28.5 MMOL/L (20-26); ABG Oxygen Saturation 98.6 % (95-100); ABG PCO2 53.4 MM HG (35-48); ABG TCO2 28.3 MMOL/L (23-27)
[2018-06-13 09:39] LABS: Albumin 2.8 G/DL (3.4-5.0); Bilirubin,Total 1.1 MG/DL (0.2-1.0); Calcium 8.8 MG/DL (8.5-10.1); Osmolality,Calculated 294.1 MOS/KG (273-304); Potassium 4.1 MMOL/L (3.5-5.1); Total Protein 6.3 G/DL (6.4-8.3)
[2018-06-13 09:46] LABS: Band Neutrophils 5 % (0-10); Eosinophils 3 % (0-10); Lymphocytes 4 % (20-55); Segmented Neutrophils 84 % (50-85); Total Cells Counted 100
[2018-06-13 09:47] LABS: Anisocytosis 1+; Platelet Estimate Normal
[2018-06-13 09:55] LABS: Apearance,Urine CLEAR (Clear); Bacteria,Urine Many /HPF (Few); Bilirubin,Urine Negative (Negative); Blood, Urine Small mg/dL (Negative); Glucose,Urine (UA) 150 mg/dL (Negative); Hyaline Casts,Urine 1 /LPF (0-3); Ketones,Urine 5 mg/dL (Negative); Mucus,Urine Occasional /LPF (Occasional); Nitrite,Urine Negative (Negative); Protein,Urine >=500 MG/DL; RBC,Urine 33 /HPF (0-4); Squamous Epithelial Cell,Urine Occasional /HPF (0-10); Urine Color Yellow (Yellow); Urine Specific Gravity 1.012 (1.001-1.035); Urine Urobilinogen < 2.0 EU/DL (0.2-1.0); WBC,Urine 44 /HPF (0-6)
[2018-06-13] MEDS ORDERED: LEVOFLOXACIN INJ 500 MG in PREMIX 1 EACH IV STA (10:50)
[2018-06-13] MEDS ORDERED: SODIUM CHLORIDE 0.9% 1,000 ML IV SCH (12:14)
[2018-06-13] MEDS ORDERED: ONDANSETRON 4 MG/2 ML VIAL IV PRN (12:14)
[2018-06-13] MEDS ORDERED: DEXTROSE 50% 25 GM/50 ML VIAL IV PRN (12:14)
[2018-06-13] MEDS ORDERED: GLUCAGON 1 MG VIAL IM PRN (12:14)
[2018-06-13] MEDS ORDERED: INFLUENZA VIRUS VACCINE 0.5 ML SYRINGE IM ONE (12:39)
[2018-06-13] MEDS: INSULIN LISPRO 100 UNIT/ML SUBCUT SCH ×3 (13:54→21:26)
[2018-06-13] MEDS: ALBUTEROL/IPRATROPIUM 3 ML NEB RESP TX SCH ×2 (15:10→19:38)
[2018-06-13] MEDS: ISOSORBIDE DINITRATE 20 MG TABLET PO SCH ×2 (15:36→21:24)
[2018-06-13] MEDS: FUROSEMIDE 40 MG/4 ML VIAL IV SCH (15:36)
[2018-06-13] MEDS: LABETALOL 200 MG TABLET PO SCH (21:24)
[2018-06-13] MEDS: DOCUSATE SODIUM 100 MG CAPSULE PO SCH (21:25)
[2018-06-13] MEDS: DONEPEZIL 5 MG TABLET PO SCH (21:25)
[2018-06-13] MEDS: INSULIN GLARGINE 100 UNIT/ML SUBCUT SCH (21:27)
[2018-06-14] MEDS: ALBUTEROL/IPRATROPIUM 3 ML NEB RESP TX SCH ×6 (03:50→20:20)
[2018-06-14 04:10] LABS: Basophils % 0.1 % (0.0-0.8); Hematocrit 29.9 VOL% (35.7-47.0); Hemoglobin 8.8 GM/DL (12.0-16.0); Immature Granulocytes % 1.1 %; Immature Granulocytes Absolute 0.08 #; Lymphocytes # 0.2 10*3/uL (1.4-4.0); Lymphocytes % 2.5 % (21.3-54.2); Mean Corpuscular HGB Conc 29.4 GM/DL (32-36); Mean Corpuscular Hemoglobin 25 PG (27-34); Mean Corpuscular Volume 84.9 FL (87-102); Mean Platelet Volume 10.4 FL (9.6-12.0); Monocytes # 0.3 10*3/uL (0.11-0.8); Monocytes % 3.5 % (1.7-12.7); Neutrophils # 6.6 10*3/uL (1.4-7.4); Neutrophils % 92.8 % (38.7-73.9); Platelet Count 190 T/CUMM (130-400); Red Blood Count 3.52 MC/CUMM (3.8-5.5); Red Cell Distribution Width 17.7 % (9.3-17.3); White Blood Count 7.1 T/CUMM (4-12)
[2018-06-14 04:45] LABS: Albumin 2.7 G/DL (3.4-5.0); Bilirubin,Total 0.8 MG/DL (0.2-1.0); Calcium 8.9 MG/DL (8.5-10.1); Osmolality,Calculated 290.5 MOS/KG (273-304); Potassium 3.9 MMOL/L (3.5-5.1); Total Protein 6.1 G/DL (6.4-8.3)
[2018-06-14 04:53] LABS: Hypochromasia Slight; Lymphocytes 1 % (20-55); Platelet Estimate Adequate; Polychromasia Few; Segmented Neutrophils 98 % (50-85); Total Cells Counted 100
[2018-06-14] MEDS: INSULIN LISPRO 100 UNIT/ML SUBCUT SCH ×4 (08:49→21:43)
[2018-06-14] MEDS: FUROSEMIDE 40 MG/4 ML VIAL IV SCH ×2 (08:50→15:35)
[2018-06-14] MEDS: LEVOFLOXACIN INJ 250 MG in PREMIX 1 EACH IV SCH (08:50)
[2018-06-14] MEDS: DOXAZOSIN 4 MG TABLET PO SCH (08:51)
[2018-06-14] MEDS: LABETALOL 200 MG TABLET PO SCH ×2 (08:51→21:44)
[2018-06-14] MEDS: CITALOPRAM 20 MG TABLET PO SCH (08:51)
[2018-06-14] MEDS: ISOSORBIDE DINITRATE 20 MG TABLET PO SCH ×3 (08:51→21:44)
[2018-06-14] MEDS: DOCUSATE SODIUM 100 MG CAPSULE PO SCH ×2 (08:51→21:44)
[2018-06-14] MEDS: ASPIRIN EC 81 MG TABLET PO SCH (08:51)
[2018-06-14] MEDS: PANTOPRAZOLE 40 MG TABLET PO SCH (08:52)
[2018-06-14] MEDS: sitaGLIPtin 100 MG TABLET PO SCH (08:52)
[2018-06-14] MEDS: amLODIPine 10 MG TABLET PO SCH (08:52)
[2018-06-14] MEDS: PRAVASTATIN 20 MG TABLET PO SCH (08:59)
[2018-06-14] MEDS: methylPREDNISolone SOD SUC 40 MG/1 ML VIAL IV SCH ×2 (08:59→22:33)
[2018-06-14] MEDS: CLOPIDOGREL 75 MG TABLET PO SCH (08:59)
[2018-06-14] MEDS: ZINC OXIDE PASTE 113 GM TUBE TOP SCH ×2 (12:40→22:32)
[2018-06-14] MEDS: NYSTATIN POWDER 15 GM BOTTLE TOP SCH ×2 (14:15→22:33)
[2018-06-14] MEDS: ALPRAZolam 0.25 MG TABLET PO PRN (21:43)
[2018-06-14] MEDS: INSULIN GLARGINE 100 UNIT/ML SUBCUT SCH (21:44)
[2018-06-14] MEDS: DONEPEZIL 5 MG TABLET PO SCH (21:45)
[2018-06-15] MEDS: ALBUTEROL/IPRATROPIUM 3 ML NEB RESP TX SCH ×7 (00:15→23:55)
[2018-06-15 03:55] LABS: Basophils % 0.1 % (0.0-0.8); Hematocrit 29.5 VOL% (35.7-47.0); Hemoglobin 8.6 GM/DL (12.0-16.0); Immature Granulocytes Absolute 0.11 #; Lymphocytes # 0.2 10*3/uL (1.4-4.0); Mean Corpuscular HGB Conc 29.2 GM/DL (32-36); Mean Corpuscular Hemoglobin 25 PG (27-34); Mean Platelet Volume 10.2 FL (9.6-12.0); Monocytes # 0.4 10*3/uL (0.11-0.8); Monocytes % 3.7 % (1.7-12.7); Neutrophils % 93.2 % (38.7-73.9); Platelet Count 182 T/CUMM (130-400); Red Blood Count 3.43 MC/CUMM (3.8-5.5); Red Cell Distribution Width 17.8 % (9.3-17.3); White Blood Count 10.7 T/CUMM (4-12)
[2018-06-15 04:31] LABS: Calcium 8.8 MG/DL (8.5-10.1); Osmolality,Calculated 295.5 MOS/KG (273-304)
[2018-06-15 04:45] LABS: Lymphocytes 3 % (20-55); Segmented Neutrophils 96 % (50-85); Total Cells Counted 100
[2018-06-15 04:46] LABS: Hypochromasia Slight; Platelet Estimate Decreased; Polychromasia Few
[2018-06-15] MEDS: INSULIN LISPRO 100 UNIT/ML SUBCUT SCH ×4 (08:17→21:23)
[2018-06-15] MEDS: FUROSEMIDE 40 MG/4 ML VIAL IV SCH ×2 (08:18→16:19)
[2018-06-15] MEDS: methylPREDNISolone SOD SUC 40 MG/1 ML VIAL IV SCH ×2 (08:18→21:22)
[2018-06-15] MEDS: LEVOFLOXACIN INJ 250 MG in PREMIX 1 EACH IV SCH (08:20)
[2018-06-15] MEDS: ISOSORBIDE DINITRATE 20 MG TABLET PO SCH ×3 (09:40→21:21)
[2018-06-15] MEDS: sitaGLIPtin 100 MG TABLET PO SCH (09:42)
[2018-06-15] MEDS: ASPIRIN EC 81 MG TABLET PO SCH (09:44)
[2018-06-15] MEDS: CLOPIDOGREL 75 MG TABLET PO SCH (09:44)
[2018-06-15] MEDS: amLODIPine 10 MG TABLET PO SCH (09:44)
[2018-06-15] MEDS: PRAVASTATIN 20 MG TABLET PO SCH (09:44)
[2018-06-15] MEDS: DOCUSATE SODIUM 100 MG CAPSULE PO SCH ×2 (09:44→21:21)
[2018-06-15] MEDS: CITALOPRAM 20 MG TABLET PO SCH (09:45)
[2018-06-15] MEDS: PANTOPRAZOLE 40 MG TABLET PO SCH (09:45)
[2018-06-15] MEDS: DOXAZOSIN 4 MG TABLET PO SCH (09:45)
[2018-06-15] MEDS: LABETALOL 200 MG TABLET PO SCH ×2 (09:45→21:22)
[2018-06-15] MEDS: ZINC OXIDE PASTE 113 GM TUBE TOP SCH ×2 (09:55→21:23)
[2018-06-15] MEDS: NYSTATIN POWDER 15 GM BOTTLE TOP SCH ×2 (09:55→21:22)
[2018-06-15] MEDS: cefTRIAXone 1,000 MG in SYRINGE 1 EACH IV SCH (14:53)
[2018-06-15] MEDS: DONEPEZIL 5 MG TABLET PO SCH (21:21)
[2018-06-15] MEDS: INSULIN GLARGINE 100 UNIT/ML SUBCUT SCH (21:22)
[2018-06-16] MEDS: ALBUTEROL/IPRATROPIUM 3 ML NEB RESP TX SCH ×6 (03:40→22:40)
[2018-06-16 03:50] LABS: Basophils % 0.1 % (0.0-0.8); Hematocrit 29.6 VOL% (35.7-47.0); Hemoglobin 8.7 GM/DL (12.0-16.0); Immature Granulocytes % 1.9 %; Immature Granulocytes Absolute 0.18 #; Lymphocytes # 0.2 10*3/uL (1.4-4.0); Lymphocytes % 2.1 % (21.3-54.2); Mean Corpuscular HGB Conc 29.4 GM/DL (32-36); Mean Corpuscular Hemoglobin 25 PG (27-34); Mean Corpuscular Volume 84.6 FL (87-102); Mean Platelet Volume 10.2 FL (9.6-12.0); Monocytes # 0.5 10*3/uL (0.11-0.8); Monocytes % 4.8 % (1.7-12.7); Neutrophils # 8.6 10*3/uL (1.4-7.4); Neutrophils % 91.1 % (38.7-73.9); Platelet Count 179 T/CUMM (130-400); Red Cell Distribution Width 17.6 % (9.3-17.3); White Blood Count 9.4 T/CUMM (4-12)
[2018-06-16 04:07] LABS: Calcium 8.7 MG/DL (8.5-10.1); Osmolality,Calculated 297.5 MOS/KG (273-304); Potassium 3.8 MMOL/L (3.5-5.1)
[2018-06-16 04:50] LABS: Band Neutrophils 4 % (0-10); Eosinophils 1 % (0-10); Lymphocytes 3 % (20-55); Metamyelocytes 1 %; Myelocytes 1 %; Segmented Neutrophils 86 % (50-85); Total Cells Counted 100
[2018-06-16 04:59] LABS: Platelet Estimate Normal
[2018-06-16 05:00] LABS: Hypochromasia 1+
[2018-06-16] MEDS: INSULIN LISPRO 100 UNIT/ML SUBCUT SCH ×4 (08:52→20:50)
[2018-06-16] MEDS: ISOSORBIDE DINITRATE 20 MG TABLET PO SCH ×3 (08:53→20:49)
[2018-06-16] MEDS: LABETALOL 200 MG TABLET PO SCH ×2 (08:54→20:49)
[2018-06-16] MEDS: ASPIRIN EC 81 MG TABLET PO SCH (08:54)
[2018-06-16] MEDS: DOXAZOSIN 4 MG TABLET PO SCH (08:54)
[2018-06-16] MEDS: DOCUSATE SODIUM 100 MG CAPSULE PO SCH ×2 (08:54→20:49)
[2018-06-16] MEDS: amLODIPine 10 MG TABLET PO SCH (08:54)
[2018-06-16] MEDS: FUROSEMIDE 40 MG/4 ML VIAL IV SCH (08:54)
[2018-06-16] MEDS: CITALOPRAM 20 MG TABLET PO SCH (08:54)
[2018-06-16] MEDS: sitaGLIPtin 100 MG TABLET PO SCH (08:54)
[2018-06-16] MEDS: PANTOPRAZOLE 40 MG TABLET PO SCH (08:54)
[2018-06-16] MEDS: methylPREDNISolone SOD SUC 40 MG/1 ML VIAL IV SCH ×2 (08:54→20:49)
[2018-06-16] MEDS: CLOPIDOGREL 75 MG TABLET PO SCH (08:54)
[2018-06-16] MEDS: LEVOFLOXACIN INJ 250 MG in PREMIX 1 EACH IV SCH (08:55)
[2018-06-16] MEDS: ZINC OXIDE PASTE 113 GM TUBE TOP SCH ×2 (08:55→20:50)
[2018-06-16] MEDS: NYSTATIN POWDER 15 GM BOTTLE TOP SCH ×2 (08:56→20:50)
[2018-06-16] MEDS: PRAVASTATIN 20 MG TABLET PO SCH (09:02)
[2018-06-16] MEDS: cefTRIAXone 1,000 MG in SYRINGE 1 EACH IV SCH (15:39)
[2018-06-16] MEDS: FUROSEMIDE 40 MG TABLET PO SCH (15:39)
[2018-06-16] MEDS ORDERED: FUROSEMIDE 40 MG TABLET PO SCH (16:00)
[2018-06-16] MEDS ORDERED: FUROSEMIDE 40 MG/4 ML VIAL IV SCH (16:00)
[2018-06-16] MEDS: INSULIN GLARGINE 100 UNIT/ML SUBCUT SCH (20:49)
[2018-06-16] MEDS: DONEPEZIL 5 MG TABLET PO SCH (20:50)
[2018-06-16] MEDS ORDERED: ZALEPLON 5 MG CAPSULE PO PRN (21:00)
[2018-06-17] MEDS: ALBUTEROL/IPRATROPIUM 3 ML NEB RESP TX SCH ×5 (02:38→19:40)
[2018-06-17 06:32] LABS: Basophils % 0.1 % (0.0-0.8); Hemoglobin 8.9 GM/DL (12.0-16.0); Immature Granulocytes % 3.6 %; Immature Granulocytes Absolute 0.25 #; Lymphocytes # 0.2 10*3/uL (1.4-4.0); Lymphocytes % 3.4 % (21.3-54.2); Mean Corpuscular HGB Conc 30.7 GM/DL (32-36); Mean Corpuscular Hemoglobin 26 PG (27-34); Mean Corpuscular Volume 84.3 FL (87-102); Monocytes # 0.4 10*3/uL (0.11-0.8); Monocytes % 5.1 % (1.7-12.7); Neutrophils % 87.8 % (38.7-73.9); Platelet Count 153 T/CUMM (130-400); Red Blood Count 3.44 MC/CUMM (3.8-5.5); Red Cell Distribution Width 17.7 % (9.3-17.3); White Blood Count 6.9 T/CUMM (4-12)
[2018-06-17 07:02] LABS: Calcium 8.7 MG/DL (8.5-10.1); Osmolality,Calculated 298.7 MOS/KG (273-304); Potassium 4.2 MMOL/L (3.5-5.1)
[2018-06-17] MEDS ORDERED: TUBERCULIN SKIN TEST 0.1 ML SYRINGE INTRADERM ONE (07:29)
[2018-06-17 08:15] LABS: Band Neutrophils 8 % (0-10); Basophilic Stippling Slight; Lymphocytes 4 % (20-55); Platelet Estimate Adequate; Segmented Neutrophils 83 % (50-85); Total Cells Counted 100
[2018-06-17] MEDS: LEVOFLOXACIN INJ 250 MG in PREMIX 1 EACH IV SCH (08:58)
[2018-06-17] MEDS: methylPREDNISolone SOD SUC 40 MG/1 ML VIAL IV SCH ×2 (08:59→20:42)
[2018-06-17] MEDS: INSULIN LISPRO 100 UNIT/ML SUBCUT SCH ×4 (08:59→20:42)
[2018-06-17] MEDS: CITALOPRAM 20 MG TABLET PO SCH (09:00)
[2018-06-17] MEDS: PRAVASTATIN 20 MG TABLET PO SCH (09:00)
[2018-06-17] MEDS: ASPIRIN EC 81 MG TABLET PO SCH (09:00)
[2018-06-17] MEDS: DOXAZOSIN 4 MG TABLET PO SCH (09:00)
[2018-06-17] MEDS: sitaGLIPtin 100 MG TABLET PO SCH (09:00)
[2018-06-17] MEDS: ISOSORBIDE DINITRATE 20 MG TABLET PO SCH ×3 (09:00→20:41)
[2018-06-17] MEDS: LABETALOL 200 MG TABLET PO SCH ×2 (09:01→20:41)
[2018-06-17] MEDS: CLOPIDOGREL 75 MG TABLET PO SCH (09:01)
[2018-06-17] MEDS: DOCUSATE SODIUM 100 MG CAPSULE PO SCH ×2 (09:01→20:41)
[2018-06-17] MEDS: PANTOPRAZOLE 40 MG TABLET PO SCH (09:01)
[2018-06-17] MEDS: FUROSEMIDE 40 MG TABLET PO SCH ×2 (09:01→16:13)
[2018-06-17] MEDS: amLODIPine 10 MG TABLET PO SCH (09:02)
[2018-06-17] MEDS: ZINC OXIDE PASTE 113 GM TUBE TOP SCH ×2 (09:02→20:47)
[2018-06-17] MEDS: NYSTATIN POWDER 15 GM BOTTLE TOP SCH ×2 (09:02→20:47)
[2018-06-17] MEDS: cefTRIAXone 1,000 MG in SYRINGE 1 EACH IV SCH (16:14)
[2018-06-17] MEDS: DONEPEZIL 5 MG TABLET PO SCH (20:41)
[2018-06-17] MEDS: INSULIN GLARGINE 100 UNIT/ML SUBCUT SCH (20:41)
[2018-06-18] MEDS: ALBUTEROL/IPRATROPIUM 3 ML NEB RESP TX SCH ×7 (00:22→23:38)
[2018-06-18 05:38] LABS: Basophils % 0.3 % (0.0-0.8); Hematocrit 30.1 VOL% (35.7-47.0); Hemoglobin 9.1 GM/DL (12.0-16.0); Immature Granulocytes % 5.8 %; Immature Granulocytes Absolute 0.44 #; Lymphocytes # 0.3 10*3/uL (1.4-4.0); Lymphocytes % 3.4 % (21.3-54.2); Mean Corpuscular HGB Conc 30.2 GM/DL (32-36); Mean Corpuscular Hemoglobin 25 PG (27-34); Mean Corpuscular Volume 82.9 FL (87-102); Mean Platelet Volume 10.4 FL (9.6-12.0); Monocytes # 0.4 10*3/uL (0.11-0.8); Monocytes % 5.7 % (1.7-12.7); NRBC # 0.02 10*3/uL; Neutrophils # 6.4 10*3/uL (1.4-7.4); Neutrophils % 84.8 % (38.7-73.9); Platelet Count 174 T/CUMM (130-400); Red Blood Count 3.63 MC/CUMM (3.8-5.5); Red Cell Distribution Width 17.6 % (9.3-17.3); White Blood Count 7.6 T/CUMM (4-12)
[2018-06-18 05:54] LABS: Calcium 8.8 MG/DL (8.5-10.1); Osmolality,Calculated 298.5 MOS/KG (273-304); Potassium 3.8 MMOL/L (3.5-5.1)
[2018-06-18 06:14] LABS: Hypochromasia Slight; Lymphocytes 6 % (20-55); Platelet Estimate Adequate; Segmented Neutrophils 92 % (50-85); Total Cells Counted 100
[2018-06-18] MEDS: ALPRAZolam 0.25 MG TABLET PO PRN (07:48)
[2018-06-18] MEDS: methylPREDNISolone SOD SUC 40 MG/1 ML VIAL IV SCH ×2 (09:33→20:33)
[2018-06-18] MEDS: LEVOFLOXACIN INJ 250 MG in PREMIX 1 EACH IV SCH (09:33)
[2018-06-18] MEDS: ASPIRIN EC 81 MG TABLET PO SCH (09:34)
[2018-06-18] MEDS: INSULIN LISPRO 100 UNIT/ML SUBCUT SCH ×4 (09:34→20:34)
[2018-06-18] MEDS: amLODIPine 10 MG TABLET PO SCH (09:35)
[2018-06-18] MEDS: DOXAZOSIN 4 MG TABLET PO SCH (09:35)
[2018-06-18] MEDS: PANTOPRAZOLE 40 MG TABLET PO SCH (09:35)
[2018-06-18] MEDS: sitaGLIPtin 100 MG TABLET PO SCH (09:35)
[2018-06-18] MEDS: FUROSEMIDE 40 MG TABLET PO SCH ×2 (09:35→16:54)
[2018-06-18] MEDS: DOCUSATE SODIUM 100 MG CAPSULE PO SCH ×2 (09:35→20:33)
[2018-06-18] MEDS: LABETALOL 200 MG TABLET PO SCH ×2 (09:35→20:33)
[2018-06-18] MEDS: CITALOPRAM 20 MG TABLET PO SCH (09:36)
[2018-06-18] MEDS: ISOSORBIDE DINITRATE 20 MG TABLET PO SCH ×3 (09:36→20:33)
[2018-06-18] MEDS: CLOPIDOGREL 75 MG TABLET PO SCH (09:36)
[2018-06-18] MEDS: PRAVASTATIN 20 MG TABLET PO SCH (09:42)
[2018-06-18] MEDS: ZINC OXIDE PASTE 113 GM TUBE TOP SCH ×2 (09:42→20:33)
[2018-06-18] MEDS: NYSTATIN POWDER 15 GM BOTTLE TOP SCH ×2 (09:42→20:34)
[2018-06-18] MEDS ORDERED: FUROSEMIDE 40 MG/4 ML VIAL IV ONE (14:30)
[2018-06-18] MEDS: cefTRIAXone 1,000 MG in SYRINGE 1 EACH IV SCH (15:51)
[2018-06-18] MEDS: INSULIN GLARGINE 100 UNIT/ML SUBCUT SCH (20:33)
[2018-06-18] MEDS: DONEPEZIL 5 MG TABLET PO SCH (20:33)
[2018-06-19] MEDS: ALBUTEROL/IPRATROPIUM 3 ML NEB RESP TX SCH ×5 (03:05→20:34)
[2018-06-19 06:34] LABS: Basophils % 0.2 % (0.0-0.8); Hematocrit 28.4 VOL% (35.7-47.0); Hemoglobin 8.6 GM/DL (12.0-16.0); Immature Granulocytes % 4.4 %; Immature Granulocytes Absolute 0.26 #; Lymphocytes # 0.3 10*3/uL (1.4-4.0); Lymphocytes % 4.7 % (21.3-54.2); Mean Corpuscular HGB Conc 30.3 GM/DL (32-36); Mean Corpuscular Hemoglobin 25 PG (27-34); Mean Corpuscular Volume 82.6 FL (87-102); Mean Platelet Volume 9.9 FL (9.6-12.0); Monocytes # 0.5 10*3/uL (0.11-0.8); Monocytes % 7.8 % (1.7-12.7); Neutrophils # 4.9 10*3/uL (1.4-7.4); Neutrophils % 82.9 % (38.7-73.9); Platelet Count 153 T/CUMM (130-400); Red Blood Count 3.44 MC/CUMM (3.8-5.5); Red Cell Distribution Width 17.6 % (9.3-17.3); White Blood Count 5.9 T/CUMM (4-12)
[2018-06-19 07:02] LABS: Calcium 8.7 MG/DL (8.5-10.1); Osmolality,Calculated 298.5 MOS/KG (273-304)
[2018-06-19] MEDS: INSULIN LISPRO 100 UNIT/ML SUBCUT SCH ×4 (08:03→21:00)
[2018-06-19] MEDS: LEVOFLOXACIN INJ 250 MG in PREMIX 1 EACH IV SCH (09:05)
[2018-06-19] MEDS: LABETALOL 200 MG TABLET PO SCH ×2 (09:06→20:59)
[2018-06-19] MEDS: DOCUSATE SODIUM 100 MG CAPSULE PO SCH ×2 (09:06→21:00)
[2018-06-19] MEDS: FUROSEMIDE 40 MG TABLET PO SCH ×2 (09:06→15:25)
[2018-06-19] MEDS: CLOPIDOGREL 75 MG TABLET PO SCH (09:06)
[2018-06-19] MEDS: methylPREDNISolone SOD SUC 40 MG/1 ML VIAL IV SCH ×2 (09:06→21:00)
[2018-06-19] MEDS: DOXAZOSIN 4 MG TABLET PO SCH (09:06)
[2018-06-19] MEDS: ASPIRIN EC 81 MG TABLET PO SCH (09:06)
[2018-06-19] MEDS: PANTOPRAZOLE 40 MG TABLET PO SCH (09:06)
[2018-06-19] MEDS: amLODIPine 10 MG TABLET PO SCH (09:06)
[2018-06-19] MEDS: CITALOPRAM 20 MG TABLET PO SCH (09:06)
[2018-06-19] MEDS: sitaGLIPtin 100 MG TABLET PO SCH (09:07)
[2018-06-19] MEDS: NYSTATIN POWDER 15 GM BOTTLE TOP SCH ×2 (09:07→21:00)
[2018-06-19] MEDS: ZINC OXIDE PASTE 113 GM TUBE TOP SCH ×2 (09:07→21:00)
[2018-06-19] MEDS: ISOSORBIDE DINITRATE 20 MG TABLET PO SCH ×3 (09:09→20:59)
[2018-06-19] MEDS: PRAVASTATIN 20 MG TABLET PO SCH (09:09)
[2018-06-19 10:07] LABS: Band Neutrophils 1 % (0-10); Hypochromasia 1+; Lymphocytes 3 % (20-55); Ovalocytes Few; Platelet Estimate Adequate; Polychromasia Slight; Segmented Neutrophils 86 % (50-85); Total Cells Counted 100
[2018-06-19] MEDS: cefTRIAXone 1,000 MG in SYRINGE 1 EACH IV SCH (15:25)
[2018-06-19] MEDS ORDERED: BUDESONIDE 0.25 MG/2 ML NEB RESP TX SCH (17:30)
[2018-06-19] MEDS: BUDESONIDE 0.25 MG/2 ML NEB RESP TX SCH (20:35)
[2018-06-19] MEDS: INSULIN GLARGINE 100 UNIT/ML SUBCUT SCH (20:59)
[2018-06-19] MEDS: DONEPEZIL 5 MG TABLET PO SCH (20:59)
[2018-06-20] MEDS: ALBUTEROL/IPRATROPIUM 3 ML NEB RESP TX SCH ×7 (00:38→23:56)
[2018-06-20 05:45] LABS: Basophils % 0.3 % (0.0-0.8); Hematocrit 29.3 VOL% (35.7-47.0); Hemoglobin 8.9 GM/DL (12.0-16.0); Immature Granulocytes % 6.4 %; Immature Granulocytes Absolute 0.49 #; Lymphocytes # 0.2 10*3/uL (1.4-4.0); Lymphocytes % 2.6 % (21.3-54.2); Mean Corpuscular HGB Conc 30.4 GM/DL (32-36); Mean Corpuscular Hemoglobin 25 PG (27-34); Mean Corpuscular Volume 83.7 FL (87-102); Mean Platelet Volume 10.1 FL (9.6-12.0); Monocytes # 0.4 10*3/uL (0.11-0.8); Monocytes % 5.2 % (1.7-12.7); Neutrophils # 6.6 10*3/uL (1.4-7.4); Neutrophils % 85.5 % (38.7-73.9); Platelet Count 151 T/CUMM (130-400); White Blood Count 7.7 T/CUMM (4-12)
[2018-06-20 06:03] LABS: Calcium 8.5 MG/DL (8.5-10.1); Osmolality,Calculated 302.7 MOS/KG (273-304); Potassium 4.4 MMOL/L (3.5-5.1)
[2018-06-20 06:13] LABS: Band Neutrophils 2 % (0-10); Hypochromasia 1+; Lymphocytes 4 % (20-55); Nucleated Red Blood Cells 1 (0-5); Ovalocytes Slight; Platelet Estimate Normal; Segmented Neutrophils 87 % (50-85); Total Cells Counted 100
[2018-06-20] MEDS: BUDESONIDE 0.25 MG/2 ML NEB RESP TX SCH ×2 (06:48→19:33)
[2018-06-20] MEDS ORDERED: INSULIN GLARGINE 100 UNIT/ML SUBCUT SCH (07:29)
[2018-06-20] MEDS: FUROSEMIDE 40 MG TABLET PO SCH ×2 (09:18→15:54)
[2018-06-20] MEDS: INSULIN LISPRO 100 UNIT/ML SUBCUT SCH ×4 (09:18→22:10)
[2018-06-20] MEDS: DOXAZOSIN 4 MG TABLET PO SCH (09:19)
[2018-06-20] MEDS: CLOPIDOGREL 75 MG TABLET PO SCH (09:19)
[2018-06-20] MEDS: ACETAMINOPHEN 325 MG TABLET PO PRN (09:19)
[2018-06-20] MEDS: ISOSORBIDE DINITRATE 20 MG TABLET PO SCH ×3 (09:20→22:09)
[2018-06-20] MEDS: ASPIRIN EC 81 MG TABLET PO SCH (09:20)
[2018-06-20] MEDS: CITALOPRAM 20 MG TABLET PO SCH (09:20)
[2018-06-20] MEDS: LABETALOL 200 MG TABLET PO SCH ×2 (09:20→22:11)
[2018-06-20] MEDS: sitaGLIPtin 100 MG TABLET PO SCH (09:21)
[2018-06-20] MEDS: PANTOPRAZOLE 40 MG TABLET PO SCH (09:21)
[2018-06-20] MEDS: ALPRAZolam 0.25 MG TABLET PO PRN (09:21)
[2018-06-20] MEDS: GLIMEPIRIDE 2 MG TABLET PO SCH (09:21)
[2018-06-20] MEDS: DOCUSATE SODIUM 100 MG CAPSULE PO SCH ×2 (09:21→22:10)
[2018-06-20] MEDS: BUMETANIDE 1 MG/4 ML VIAL IV SCH (09:21)
[2018-06-20] MEDS: amLODIPine 10 MG TABLET PO SCH (09:21)
[2018-06-20] MEDS: methylPREDNISolone SOD SUC 40 MG/1 ML VIAL IV SCH ×2 (09:22→22:10)
[2018-06-20] MEDS: LEVOFLOXACIN INJ 250 MG in PREMIX 1 EACH IV SCH (09:22)
[2018-06-20] MEDS: ZINC OXIDE PASTE 113 GM TUBE TOP SCH ×2 (09:22→22:10)
[2018-06-20] MEDS: NYSTATIN POWDER 15 GM BOTTLE TOP SCH ×2 (09:22→22:10)
[2018-06-20] MEDS: PRAVASTATIN 20 MG TABLET PO SCH (09:50)
[2018-06-20] MEDS: cefTRIAXone 1,000 MG in SYRINGE 1 EACH IV SCH (15:54)
[2018-06-20] MEDS: DONEPEZIL 5 MG TABLET PO SCH (22:09)
[2018-06-21] MEDS: ALBUTEROL/IPRATROPIUM 3 ML NEB RESP TX SCH ×3 (03:01→11:25)
[2018-06-21] MEDS: ACETAMINOPHEN 325 MG TABLET PO PRN (05:36)
[2018-06-21 06:23] LABS: Basophils % 0.1 % (0.0-0.8); Eosinophils % 0.1 % (0.00-10.9); Hematocrit 28.3 VOL% (35.7-47.0); Hemoglobin 8.9 GM/DL (12.0-16.0); Immature Granulocytes % 6.4 %; Immature Granulocytes Absolute 0.55 #; Lymphocytes # 0.2 10*3/uL (1.4-4.0); Lymphocytes % 2.8 % (21.3-54.2); Mean Corpuscular HGB Conc 31.4 GM/DL (32-36); Mean Corpuscular Hemoglobin 26 PG (27-34); Mean Corpuscular Volume 83.5 FL (87-102); Mean Platelet Volume 10.3 FL (9.6-12.0); Monocytes # 0.6 10*3/uL (0.11-0.8); Monocytes % 6.8 % (1.7-12.7); Neutrophils # 7.2 10*3/uL (1.4-7.4); Neutrophils % 83.8 % (38.7-73.9); Platelet Count 144 T/CUMM (130-400); Red Blood Count 3.39 MC/CUMM (3.8-5.5); Red Cell Distribution Width 17.5 % (9.3-17.3); White Blood Count 8.6 T/CUMM (4-12)
[2018-06-21 06:37] LABS: Albumin 2.7 G/DL (3.4-5.0); Bilirubin,Total 0.7 MG/DL (0.2-1.0); Calcium 8.5 MG/DL (8.5-10.1); Osmolality,Calculated 293.8 MOS/KG (273-304); Potassium 3.8 MMOL/L (3.5-5.1); Total Protein 5.9 G/DL (6.4-8.3)
[2018-06-21 06:49] LABS: Hypochromasia 1+; Lymphocytes 4 % (20-55); Myelocytes 1 %; Segmented Neutrophils 92 % (50-85); Total Cells Counted 100
[2018-06-21 06:50] LABS: Microcytosis 1+
[2018-06-21 06:51] LABS: Ovalocytes Slight; Platelet Estimate Adequate
[2018-06-21] MEDS: BUDESONIDE 0.25 MG/2 ML NEB RESP TX SCH (07:20)
[2018-06-21] MEDS: INSULIN LISPRO 100 UNIT/ML SUBCUT SCH ×2 (08:09→12:00)
[2018-06-21] MEDS: LEVOFLOXACIN INJ 250 MG in PREMIX 1 EACH IV SCH (09:16)
[2018-06-21] MEDS: BUMETANIDE 1 MG/4 ML VIAL IV SCH (09:17)
[2018-06-21] MEDS: GLIMEPIRIDE 2 MG TABLET PO SCH (09:20)
[2018-06-21] MEDS: ISOSORBIDE DINITRATE 20 MG TABLET PO SCH (09:21)
[2018-06-21] MEDS: DOCUSATE SODIUM 100 MG CAPSULE PO SCH (09:21)
[2018-06-21] MEDS: ASPIRIN EC 81 MG TABLET PO SCH (09:21)
[2018-06-21] MEDS: PRAVASTATIN 20 MG TABLET PO SCH (09:21)
[2018-06-21] MEDS: FUROSEMIDE 40 MG TABLET PO SCH (09:22)
[2018-06-21] MEDS: amLODIPine 10 MG TABLET PO SCH (09:22)
[2018-06-21] MEDS: LABETALOL 200 MG TABLET PO SCH (09:22)
[2018-06-21] MEDS: DOXAZOSIN 4 MG TABLET PO SCH (09:22)
[2018-06-21] MEDS: PANTOPRAZOLE 40 MG TABLET PO SCH (09:23)
[2018-06-21] MEDS: CLOPIDOGREL 75 MG TABLET PO SCH (09:23)
[2018-06-21] MEDS: sitaGLIPtin 100 MG TABLET PO SCH (09:25)
[2018-06-21] MEDS ORDERED: predniSONE 20 MG TABLET PO SCH (09:30)
[2018-06-21] MEDS: CITALOPRAM 20 MG TABLET PO SCH (09:35)
[2018-06-21] MEDS: NYSTATIN POWDER 15 GM BOTTLE TOP SCH (09:38)
[2018-06-21] MEDS: ZINC OXIDE PASTE 113 GM TUBE TOP SCH (09:38)
[2018-06-21] MEDS: methylPREDNISolone SOD SUC 40 MG/1 ML VIAL IV SCH (10:34)
[2018-06-21 11:33] VITALS: BP 138/62
== END 2018-06-21 14:43 | DRG 291 ==
LOC: N.EDINP 08:45 → N.ED 08:45 → N.2W 11:57 → N.TELEN 13:33
PROVIDERS: ADMIT Family Medicine; ATTEND Family Medicine

== ENCOUNTER 2018-07-16 18:58 | Inpatient (IN) ==
[2018-07-16 19:29] LABS: Basophils % 0.6 % (0.0-0.8); Eosinophils # 0.1 10*3/uL (0.0-0.87); Hemoglobin 7.6 GM/DL (12.0-16.0); Immature Granulocytes % 4.3 %; Immature Granulocytes Absolute 0.22 #; Lymphocytes # 0.7 10*3/uL (1.4-4.0); Lymphocytes % 12.9 % (21.3-54.2); Mean Corpuscular HGB Conc 30.4 GM/DL (32-36); Mean Corpuscular Hemoglobin 27 PG (27-34); Mean Corpuscular Volume 87.4 FL (87-102); Mean Platelet Volume 9.7 FL (9.6-12.0); Monocytes # 0.6 10*3/uL (0.11-0.8); Monocytes % 10.8 % (1.7-12.7); NRBC # 0.02 10*3/uL; Neutrophils # 3.5 10*3/uL (1.4-7.4); Neutrophils % 69.4 % (38.7-73.9); Platelet Count 154 T/CUMM (130-400); Red Blood Count 2.86 MC/CUMM (3.8-5.5); Red Cell Distribution Width 20.2 % (9.3-17.3); White Blood Count 5.1 T/CUMM (4-12)
[2018-07-16 19:41] LABS: Calcium 8.7 MG/DL (8.5-10.1); Osmolality,Calculated 277.2 MOS/KG (273-304); Potassium 4.3 MMOL/L (3.5-5.1)
[2018-07-16] MEDS ORDERED: FUROSEMIDE 40 MG/4 ML VIAL IV STA (20:14)
[2018-07-16 21:09] LABS: Apearance,Urine Slightly Hazy (Clear); Bilirubin,Urine Negative (Negative); Blood, Urine Negative (Negative); Glucose,Urine (UA) Negative (Negative); Ketones,Urine Negative (Negative); Nitrite,Urine Negative (Negative); Protein,Urine 30 MG/DL; RBC,Urine 1 /HPF (0-4); Squamous Epithelial Cell,Urine Occasional /HPF (0-10); Urine Color Yellow (Yellow); Urine Specific Gravity 1.012 (1.001-1.035); Urine Urobilinogen < 2.0 EU/DL (0.2-1.0)
[2018-07-16] MEDS ORDERED: GLUCAGON 1 MG VIAL IM PRN (22:25)
[2018-07-16] MEDS ORDERED: DEXTROSE 50% 25 GM/50 ML SYRINGE IV PRN (22:25)
[2018-07-17] MEDS: INSULIN REGULAR 100 UNIT/ML SUBCUT SCH ×4 (00:42→17:51)
[2018-07-17 08:42] LABS: Basophils % 0.4 % (0.0-0.8); Eosinophils # 0.1 10*3/uL (0.0-0.87); Eosinophils % 1.3 % (0.00-10.9); Hematocrit 24.8 VOL% (35.7-47.0); Hemoglobin 7.5 GM/DL (12.0-16.0); Immature Granulocytes % 2.8 %; Immature Granulocytes Absolute 0.13 #; Lymphocytes # 0.8 10*3/uL (1.4-4.0); Lymphocytes % 16.2 % (21.3-54.2); Mean Corpuscular HGB Conc 30.2 GM/DL (32-36); Mean Corpuscular Hemoglobin 26 PG (27-34); Mean Corpuscular Volume 86.7 FL (87-102); Mean Platelet Volume 9.6 FL (9.6-12.0); Monocytes # 0.6 10*3/uL (0.11-0.8); Monocytes % 11.9 % (1.7-12.7); NRBC # 0.03 10*3/uL; Neutrophils # 3.1 10*3/uL (1.4-7.4); Neutrophils % 67.4 % (38.7-73.9); Platelet Count 154 T/CUMM (130-400); Red Blood Count 2.86 MC/CUMM (3.8-5.5); Red Cell Distribution Width 20.3 % (9.3-17.3); White Blood Count 4.6 T/CUMM (4-12)
[2018-07-17] MEDS: FUROSEMIDE 100 MG/10 ML VIAL IV SCH ×2 (08:48→20:27)
[2018-07-17 09:10] LABS: % Iron Saturation 23.1 % (18-50); Ferritin 119.4 ng/ml (8-252)
[2018-07-17 09:19] LABS: Folate 8.1 NG/ML (5.4-24.0)
[2018-07-17] MEDS ORDERED: ALBUTEROL/IPRATROPIUM 3 ML NEB RESP TX PRN (09:24)
[2018-07-17] MEDS: CLOPIDOGREL 75 MG TABLET PO SCH (10:06)
[2018-07-17] MEDS: ASPIRIN EC 81 MG TABLET PO SCH (10:07)
[2018-07-17] MEDS: ALPRAZolam 0.25 MG TABLET PO PRN ×2 (10:07→20:36)
[2018-07-17] MEDS: CITALOPRAM 20 MG TABLET PO SCH (10:07)
[2018-07-17] MEDS: amLODIPine 10 MG TABLET PO SCH (10:07)
[2018-07-17] MEDS: DOXAZOSIN 1 MG TABLET PO SCH (10:07)
[2018-07-17] MEDS: SIMVASTATIN 10 MG TABLET PO SCH (10:07)
[2018-07-17] MEDS: sitaGLIPtin 25 MG TABLET PO SCH (10:08)
[2018-07-17 14:07] LABS: Hematocrit 24.8 VOL% (35.7-47.0); Hemoglobin 7.4 GM/DL (12.0-16.0)
[2018-07-17] MEDS: DONEPEZIL 5 MG TABLET PO SCH (20:29)
[2018-07-17] MEDS: INSULIN GLARGINE 100 UNIT/ML SUBCUT SCH (20:38)
[2018-07-18] MEDS: INSULIN REGULAR 100 UNIT/ML SUBCUT SCH ×4 (00:04→20:26)
[2018-07-18] MEDS: DOXAZOSIN 1 MG TABLET PO SCH (09:58)
[2018-07-18] MEDS: ASPIRIN EC 81 MG TABLET PO SCH (09:59)
[2018-07-18] MEDS: CITALOPRAM 20 MG TABLET PO SCH (09:59)
[2018-07-18] MEDS: sitaGLIPtin 25 MG TABLET PO SCH (10:00)
[2018-07-18] MEDS: amLODIPine 10 MG TABLET PO SCH (10:00)
[2018-07-18] MEDS: SIMVASTATIN 10 MG TABLET PO SCH (10:00)
[2018-07-18] MEDS: ALPRAZolam 0.25 MG TABLET PO PRN ×2 (10:00→20:49)
[2018-07-18] MEDS: FUROSEMIDE 100 MG/10 ML VIAL IV SCH ×2 (10:09→20:50)
[2018-07-18] MEDS ORDERED: hydrALAZINE 20 MG/1 ML VIAL IV PRN (11:49)
[2018-07-18 13:29] LABS: Basophils % 0.5 % (0.0-0.8); Eosinophils % 0.7 % (0.00-10.9); Hematocrit 25.5 VOL% (35.7-47.0); Hemoglobin 7.8 GM/DL (12.0-16.0); Immature Granulocytes % 3.2 %; Immature Granulocytes Absolute 0.19 #; Lymphocytes # 0.6 10*3/uL (1.4-4.0); Lymphocytes % 9.7 % (21.3-54.2); Mean Corpuscular HGB Conc 30.6 GM/DL (32-36); Mean Corpuscular Hemoglobin 27 PG (27-34); Mean Corpuscular Volume 88.9 FL (87-102); Mean Platelet Volume 9.5 FL (9.6-12.0); Monocytes # 0.7 10*3/uL (0.11-0.8); Monocytes % 11.4 % (1.7-12.7); Neutrophils # 4.5 10*3/uL (1.4-7.4); Neutrophils % 74.5 % (38.7-73.9); Platelet Count 150 T/CUMM (130-400); Red Blood Count 2.87 MC/CUMM (3.8-5.5); Red Cell Distribution Width 20.5 % (9.3-17.3)
[2018-07-18 14:06] LABS: Albumin 2.7 G/DL (3.4-5.0); Calcium 8.3 MG/DL (8.5-10.1); Potassium 3.8 MMOL/L (3.5-5.1); Total Protein 6.8 G/DL (6.4-8.3)
[2018-07-18] MEDS: ALBUTEROL/IPRATROPIUM 3 ML NEB RESP TX SCH ×3 (15:20→23:43)
[2018-07-18] MEDS: methylPREDNISolone SOD SUC 40 MG/1 ML VIAL IV SCH (18:10)
[2018-07-18] MEDS: LABETALOL 100 MG TABLET PO SCH ×2 (18:13→20:49)
[2018-07-18] MEDS: DONEPEZIL 5 MG TABLET PO SCH (20:50)
[2018-07-18] MEDS: INSULIN GLARGINE 100 UNIT/ML SUBCUT SCH (20:57)
[2018-07-19] MEDS: INSULIN REGULAR 100 UNIT/ML SUBCUT SCH ×4 (00:40→18:43)
[2018-07-19] MEDS: ALBUTEROL/IPRATROPIUM 3 ML NEB RESP TX SCH ×6 (04:09→23:50)
[2018-07-19 05:05] LABS: Basophils % 0.2 % (0.0-0.8); Hematocrit 25.4 VOL% (35.7-47.0); Hemoglobin 7.5 GM/DL (12.0-16.0); Immature Granulocytes % 2.8 %; Immature Granulocytes Absolute 0.12 #; Lymphocytes # 0.3 10*3/uL (1.4-4.0); Lymphocytes % 7.4 % (21.3-54.2); Mean Corpuscular HGB Conc 29.5 GM/DL (32-36); Mean Corpuscular Hemoglobin 26 PG (27-34); Mean Corpuscular Volume 88.5 FL (87-102); Mean Platelet Volume 9.3 FL (9.6-12.0); Monocytes # 0.1 10*3/uL (0.11-0.8); Monocytes % 3.2 % (1.7-12.7); Neutrophils # 3.7 10*3/uL (1.4-7.4); Neutrophils % 86.4 % (38.7-73.9); Platelet Count 129 T/CUMM (130-400); Red Blood Count 2.87 MC/CUMM (3.8-5.5); Red Cell Distribution Width 19.9 % (9.3-17.3); White Blood Count 4.3 T/CUMM (4-12)
[2018-07-19 05:24] LABS: Calcium 8.9 MG/DL (8.5-10.1); Osmolality,Calculated 285.8 MOS/KG (273-304)
[2018-07-19 05:31] LABS: Albumin 2.5 G/DL (3.4-5.0); Bilirubin,Total 2.1 MG/DL (0.2-1.0); Calcium 8.9 MG/DL (8.5-10.1); Osmolality,Calculated 285.8 MOS/KG (273-304); Total Protein 6.5 G/DL (6.4-8.3)
[2018-07-19] MEDS: methylPREDNISolone SOD SUC 40 MG/1 ML VIAL IV SCH ×2 (06:15→18:43)
[2018-07-19] MEDS: sitaGLIPtin 25 MG TABLET PO SCH (08:30)
[2018-07-19] MEDS: LABETALOL 100 MG TABLET PO SCH ×2 (08:30→20:35)
[2018-07-19] MEDS: ASPIRIN EC 81 MG TABLET PO SCH (08:31)
[2018-07-19] MEDS: amLODIPine 10 MG TABLET PO SCH (08:31)
[2018-07-19] MEDS: DOXAZOSIN 1 MG TABLET PO SCH (08:31)
[2018-07-19] MEDS: CITALOPRAM 20 MG TABLET PO SCH (08:31)
[2018-07-19] MEDS: FUROSEMIDE 100 MG/10 ML VIAL IV SCH ×2 (08:32→20:36)
[2018-07-19] MEDS: SIMVASTATIN 10 MG TABLET PO SCH (08:32)
[2018-07-19] MEDS: LEVOFLOXACIN INJ 250 MG in PREMIX 1 EACH IV SCH (13:39)
[2018-07-19] MEDS ORDERED: SODIUM CHLORIDE 0.9% 1,000 ML IV PRN (13:44)
[2018-07-19 14:02] LABS: Hematocrit 25.9 VOL% (35.7-47.0); Hemoglobin 7.7 GM/DL (12.0-16.0)
[2018-07-19] MEDS: POLYETHYLENE GLYCOL POWDER 17 GM PACK PO SCH (17:47)
[2018-07-19] MEDS: DONEPEZIL 5 MG TABLET PO SCH (20:35)
[2018-07-19] MEDS: INSULIN GLARGINE 100 UNIT/ML SUBCUT SCH (20:37)
[2018-07-19] MEDS: CLOPIDOGREL 75 MG TABLET PO SCH (21:16)
[2018-07-19] MEDS: ALPRAZolam 0.25 MG TABLET PO PRN (22:03)
[2018-07-19 23:26] LABS: Hemoglobin 8.6 GM/DL (12.0-16.0)
[2018-07-20] MEDS: INSULIN REGULAR 100 UNIT/ML SUBCUT SCH ×4 (01:53→17:48)
[2018-07-20] MEDS: ALBUTEROL/IPRATROPIUM 3 ML NEB RESP TX SCH ×6 (03:40→23:08)
[2018-07-20 05:17] LABS: Basophils % 0.2 % (0.0-0.8); Hematocrit 28.5 VOL% (35.7-47.0); Hemoglobin 8.6 GM/DL (12.0-16.0); Immature Granulocytes % 2.1 %; Immature Granulocytes Absolute 0.11 #; Lymphocytes # 0.3 10*3/uL (1.4-4.0); Lymphocytes % 5.8 % (21.3-54.2); Mean Corpuscular HGB Conc 30.2 GM/DL (32-36); Mean Corpuscular Hemoglobin 27 PG (27-34); Mean Corpuscular Volume 87.7 FL (87-102); Mean Platelet Volume 9.5 FL (9.6-12.0); Monocytes # 0.3 10*3/uL (0.11-0.8); Monocytes % 5.1 % (1.7-12.7); Neutrophils # 4.6 10*3/uL (1.4-7.4); Neutrophils % 86.8 % (38.7-73.9); Platelet Count 144 T/CUMM (130-400); Red Blood Count 3.25 MC/CUMM (3.8-5.5); White Blood Count 5.3 T/CUMM (4-12)
[2018-07-20 05:29] LABS: Albumin 2.6 G/DL (3.4-5.0); Bilirubin,Total 0.7 MG/DL (0.2-1.0); Calcium 9.3 MG/DL (8.5-10.1); Osmolality,Calculated 284.2 MOS/KG (273-304); Potassium 4.4 MMOL/L (3.5-5.1); Total Protein 6.7 G/DL (6.4-8.3)
[2018-07-20 05:35] LABS: Calcium 8.6 MG/DL (8.5-10.1); Osmolality,Calculated 285.1 MOS/KG (273-304); Potassium 4.5 MMOL/L (3.5-5.1)
[2018-07-20 06:17] LABS: Band Neutrophils 1 % (0-10); Hypochromasia 1+; Lymphocytes 5 % (20-55); Platelet Estimate Normal; Segmented Neutrophils 89 % (50-85); Total Cells Counted 100
[2018-07-20] MEDS: methylPREDNISolone SOD SUC 40 MG/1 ML VIAL IV SCH ×2 (06:19→17:48)
[2018-07-20] MEDS: ASPIRIN EC 81 MG TABLET PO SCH (08:30)
[2018-07-20] MEDS: CITALOPRAM 20 MG TABLET PO SCH (08:31)
[2018-07-20] MEDS: POLYETHYLENE GLYCOL POWDER 17 GM PACK PO SCH (08:31)
[2018-07-20] MEDS: sitaGLIPtin 25 MG TABLET PO SCH (08:31)
[2018-07-20] MEDS: amLODIPine 10 MG TABLET PO SCH (08:31)
[2018-07-20] MEDS: LABETALOL 100 MG TABLET PO SCH (08:31)
[2018-07-20] MEDS: SIMVASTATIN 10 MG TABLET PO SCH (08:31)
[2018-07-20] MEDS: FUROSEMIDE 100 MG/10 ML VIAL IV SCH ×2 (08:34→21:29)
[2018-07-20] MEDS: DOXAZOSIN 1 MG TABLET PO SCH (09:17)
[2018-07-20] MEDS ORDERED: LABETALOL 100 MG TABLET PO ONE (10:45)
[2018-07-20] MEDS: LEVOFLOXACIN INJ 250 MG in PREMIX 1 EACH IV SCH (12:33)
[2018-07-20] MEDS: DONEPEZIL 5 MG TABLET PO SCH (21:30)
[2018-07-20] MEDS: ALPRAZolam 0.25 MG TABLET PO PRN (21:30)
[2018-07-20] MEDS: LABETALOL 200 MG TABLET PO SCH (21:30)
[2018-07-20] MEDS: INSULIN GLARGINE 100 UNIT/ML SUBCUT SCH (22:32)
[2018-07-21] MEDS: INSULIN REGULAR 100 UNIT/ML SUBCUT SCH ×5 (01:09→23:55)
[2018-07-21] MEDS: ALBUTEROL/IPRATROPIUM 3 ML NEB RESP TX SCH ×6 (02:43→23:49)
[2018-07-21 05:03] LABS: Hematocrit 27.4 VOL% (35.7-47.0); Immature Granulocytes % 3.4 %; Immature Granulocytes Absolute 0.19 #; Lymphocytes # 0.3 10*3/uL (1.4-4.0); Lymphocytes % 5.8 % (21.3-54.2); Mean Corpuscular HGB Conc 29.2 GM/DL (32-36); Mean Corpuscular Hemoglobin 26 PG (27-34); Mean Corpuscular Volume 88.4 FL (87-102); Mean Platelet Volume 9.5 FL (9.6-12.0); Monocytes # 0.3 10*3/uL (0.11-0.8); Monocytes % 5.6 % (1.7-12.7); NRBC # 0.03 10*3/uL; Neutrophils # 4.8 10*3/uL (1.4-7.4); Neutrophils % 85.2 % (38.7-73.9); Platelet Count 155 T/CUMM (130-400); Red Cell Distribution Width 19.3 % (9.3-17.3); White Blood Count 5.7 T/CUMM (4-12)
[2018-07-21 05:27] LABS: Calcium 8.8 MG/DL (8.5-10.1); Osmolality,Calculated 284.5 MOS/KG (273-304); Potassium 4.9 MMOL/L (3.5-5.1)
[2018-07-21 05:31] LABS: Albumin 2.7 G/DL (3.4-5.0); Bilirubin,Total 0.7 MG/DL (0.2-1.0); Calcium 8.8 MG/DL (8.5-10.1); Osmolality,Calculated 285.4 MOS/KG (273-304); Total Protein 6.7 G/DL (6.4-8.3)
[2018-07-21] MEDS: LABETALOL 200 MG TABLET PO SCH ×2 (08:53→21:03)
[2018-07-21] MEDS: DOXAZOSIN 1 MG TABLET PO SCH (08:53)
[2018-07-21] MEDS: SIMVASTATIN 10 MG TABLET PO SCH (08:54)
[2018-07-21] MEDS: CITALOPRAM 20 MG TABLET PO SCH (08:54)
[2018-07-21] MEDS: amLODIPine 10 MG TABLET PO SCH (08:54)
[2018-07-21] MEDS: sitaGLIPtin 25 MG TABLET PO SCH (08:54)
[2018-07-21] MEDS: ASPIRIN EC 81 MG TABLET PO SCH (08:54)
[2018-07-21] MEDS: POLYETHYLENE GLYCOL POWDER 17 GM PACK PO SCH (08:54)
[2018-07-21] MEDS: methylPREDNISolone SOD SUC 40 MG/1 ML VIAL IV SCH ×2 (09:01→19:18)
[2018-07-21] MEDS: FUROSEMIDE 100 MG/10 ML VIAL IV SCH ×2 (09:07→21:01)
[2018-07-21] MEDS: LEVOFLOXACIN INJ 250 MG in PREMIX 1 EACH IV SCH (12:32)
[2018-07-21] MEDS: ALPRAZolam 0.25 MG TABLET PO PRN (21:02)
[2018-07-21] MEDS: DONEPEZIL 5 MG TABLET PO SCH (21:03)
[2018-07-21] MEDS: INSULIN GLARGINE 100 UNIT/ML SUBCUT SCH (21:14)
[2018-07-22 04:06] LABS: Basophils % 0.2 % (0.0-0.8); Hematocrit 27.6 VOL% (35.7-47.0); Hemoglobin 8.3 GM/DL (12.0-16.0); Immature Granulocytes % 6.6 %; Immature Granulocytes Absolute 0.35 #; Lymphocytes # 0.4 10*3/uL (1.4-4.0); Lymphocytes % 6.8 % (21.3-54.2); Mean Corpuscular HGB Conc 30.1 GM/DL (32-36); Mean Corpuscular Hemoglobin 27 PG (27-34); Mean Platelet Volume 9.8 FL (9.6-12.0); Monocytes # 0.3 10*3/uL (0.11-0.8); Monocytes % 5.9 % (1.7-12.7); NRBC # 0.04 10*3/uL; Neutrophils # 4.3 10*3/uL (1.4-7.4); Neutrophils % 80.5 % (38.7-73.9); Platelet Count 170 T/CUMM (130-400); Red Cell Distribution Width 19.1 % (9.3-17.3); White Blood Count 5.3 T/CUMM (4-12)
[2018-07-22 04:31] LABS: Albumin 2.8 G/DL (3.4-5.0); Bilirubin,Total 0.4 MG/DL (0.2-1.0); Calcium 8.9 MG/DL (8.5-10.1); Osmolality,Calculated 286.7 MOS/KG (273-304); Total Protein 6.6 G/DL (6.4-8.3)
[2018-07-22] MEDS: ALBUTEROL/IPRATROPIUM 3 ML NEB RESP TX SCH ×6 (05:04→23:39)
[2018-07-22] MEDS: INSULIN REGULAR 100 UNIT/ML SUBCUT SCH ×2 (05:55→18:26)
[2018-07-22] MEDS: methylPREDNISolone SOD SUC 40 MG/1 ML VIAL IV SCH ×2 (05:55→18:38)
[2018-07-22 06:10] LABS: Lymphocytes 8 % (20-55); Metamyelocytes 1 %; Myelocytes 1 %; Platelet Estimate Adequate; Polychromasia Few; Segmented Neutrophils 89 % (50-85); Total Cells Counted 100
[2018-07-22] MEDS ORDERED: SODIUM CHLORIDE 0.9% 1,000 ML IV PRN ×3 (10:07→10:10)
[2018-07-22] MEDS ORDERED: metOLazone 2.5 MG TABLET PO SCH (11:00)
[2018-07-22] MEDS ORDERED: cloNIDine 0.1 MG/24 HR PATCH TRANSDERM SCH (11:00)
[2018-07-22] MEDS ORDERED: metOLazone 5 MG TABLET PO SCH (11:00)
[2018-07-22] MEDS: POLYETHYLENE GLYCOL POWDER 17 GM PACK PO SCH (12:22)
[2018-07-22] MEDS: CITALOPRAM 20 MG TABLET PO SCH (12:23)
[2018-07-22] MEDS: DOXAZOSIN 1 MG TABLET PO SCH (12:23)
[2018-07-22] MEDS: LABETALOL 200 MG TABLET PO SCH ×2 (12:24→21:43)
[2018-07-22] MEDS: amLODIPine 10 MG TABLET PO SCH (12:24)
[2018-07-22] MEDS: SIMVASTATIN 10 MG TABLET PO SCH (12:24)
[2018-07-22] MEDS: ASPIRIN EC 81 MG TABLET PO SCH (12:25)
[2018-07-22] MEDS: sitaGLIPtin 25 MG TABLET PO SCH (12:25)
[2018-07-22] MEDS: FUROSEMIDE 100 MG/10 ML VIAL IV SCH (12:41)
[2018-07-22] MEDS: LEVOFLOXACIN INJ 250 MG in PREMIX 1 EACH IV SCH (12:49)
[2018-07-22] MEDS: FUROSEMIDE 40 MG/4 ML VIAL IV SCH (18:41)
[2018-07-22] MEDS: INSULIN GLARGINE 100 UNIT/ML SUBCUT SCH (21:43)
[2018-07-22] MEDS: DONEPEZIL 5 MG TABLET PO SCH (21:43)
[2018-07-22] MEDS: ALPRAZolam 0.25 MG TABLET PO PRN (22:21)
[2018-07-23] MEDS: INSULIN REGULAR 100 UNIT/ML SUBCUT SCH ×5 (00:28→18:04)
[2018-07-23 03:29] LABS: Basophils % 0.3 % (0.0-0.8); Hematocrit 32.7 VOL% (35.7-47.0); Hemoglobin 9.9 GM/DL (12.0-16.0); Immature Granulocytes % 6.5 %; Immature Granulocytes Absolute 0.41 #; Lymphocytes # 0.3 10*3/uL (1.4-4.0); Mean Corpuscular HGB Conc 30.3 GM/DL (32-36); Mean Corpuscular Hemoglobin 27 PG (27-34); Mean Corpuscular Volume 89.1 FL (87-102); Mean Platelet Volume 9.1 FL (9.6-12.0); Monocytes # 0.4 10*3/uL (0.11-0.8); Monocytes % 6.4 % (1.7-12.7); NRBC # 0.04 10*3/uL; Neutrophils # 5.2 10*3/uL (1.4-7.4); Neutrophils % 82.8 % (38.7-73.9); Platelet Count 158 T/CUMM (130-400); Red Blood Count 3.67 MC/CUMM (3.8-5.5); White Blood Count 6.3 T/CUMM (4-12)
[2018-07-23] MEDS: ALBUTEROL/IPRATROPIUM 3 ML NEB RESP TX SCH ×6 (03:38→22:30)
[2018-07-23 03:47] LABS: Calcium 8.8 MG/DL (8.5-10.1); Osmolality,Calculated 290.8 MOS/KG (273-304); Potassium 5.1 MMOL/L (3.5-5.1)
[2018-07-23 04:13] LABS: Band Neutrophils 2 % (0-10); Lymphocytes 8 % (20-55); Metamyelocytes 1 %; Myelocytes 1 %; Segmented Neutrophils 83 % (50-85); Total Cells Counted 100
[2018-07-23 04:15] LABS: Hypochromasia 1+; Platelet Estimate Normal
[2018-07-23 04:16] LABS: Polychromasia Few
[2018-07-23] MEDS: methylPREDNISolone SOD SUC 40 MG/1 ML VIAL IV SCH ×2 (05:50→17:38)
[2018-07-23] MEDS: CITALOPRAM 20 MG TABLET PO SCH (08:39)
[2018-07-23] MEDS: LABETALOL 200 MG TABLET PO SCH ×2 (08:39→21:05)
[2018-07-23] MEDS: ALPRAZolam 0.25 MG TABLET PO PRN ×2 (08:39→21:06)
[2018-07-23] MEDS: ASPIRIN EC 81 MG TABLET PO SCH (08:39)
[2018-07-23] MEDS: sitaGLIPtin 25 MG TABLET PO SCH (08:39)
[2018-07-23] MEDS: amLODIPine 10 MG TABLET PO SCH (08:39)
[2018-07-23] MEDS: POLYETHYLENE GLYCOL POWDER 17 GM PACK PO SCH (08:39)
[2018-07-23] MEDS: SIMVASTATIN 10 MG TABLET PO SCH (08:39)
[2018-07-23] MEDS: FUROSEMIDE 40 MG/4 ML VIAL IV SCH ×2 (08:39→17:38)
[2018-07-23] MEDS: DOXAZOSIN 1 MG TABLET PO SCH (08:39)
[2018-07-23] MEDS ORDERED: FUROSEMIDE 40 MG/4 ML VIAL ONE (09:29)
[2018-07-23] MEDS ORDERED: FUROSEMIDE 40 MG/4 ML VIAL IV ONE (09:42)
[2018-07-23] MEDS: metOLazone 5 MG TABLET PO SCH (13:44)
[2018-07-23] MEDS: LEVOFLOXACIN INJ 250 MG in PREMIX 1 EACH IV SCH (13:44)
[2018-07-23] MEDS: NITROGLYCERIN 2% OINT 1 INCH/GM PACK TOP SCH ×2 (13:45→18:34)
[2018-07-23] MEDS ORDERED: FUROSEMIDE 40 MG/4 ML VIAL IV SCH (17:00)
[2018-07-23] MEDS: DONEPEZIL 5 MG TABLET PO SCH (21:06)
[2018-07-23] MEDS: INSULIN GLARGINE 100 UNIT/ML SUBCUT SCH (21:17)
[2018-07-24] MEDS: ALBUTEROL/IPRATROPIUM 3 ML NEB RESP TX SCH ×6 (02:59→22:57)
[2018-07-24] MEDS: FUROSEMIDE 40 MG/4 ML VIAL IV SCH ×3 (03:30→16:37)
[2018-07-24] MEDS: INSULIN REGULAR 100 UNIT/ML SUBCUT SCH ×4 (03:39→17:37)
[2018-07-24] MEDS: NITROGLYCERIN 2% OINT 1 INCH/GM PACK TOP SCH ×4 (03:39→17:39)
[2018-07-24 04:10] LABS: Basophils % 0.3 % (0.0-0.8); Hemoglobin 9.9 GM/DL (12.0-16.0); Immature Granulocytes % 4.5 %; Immature Granulocytes Absolute 0.35 #; Lymphocytes # 0.4 10*3/uL (1.4-4.0); Lymphocytes % 4.8 % (21.3-54.2); Mean Corpuscular HGB Conc 30.9 GM/DL (32-36); Mean Corpuscular Hemoglobin 27 PG (27-34); Mean Corpuscular Volume 86.5 FL (87-102); Mean Platelet Volume 9.5 FL (9.6-12.0); Monocytes # 0.5 10*3/uL (0.11-0.8); Monocytes % 6.3 % (1.7-12.7); NRBC # 0.03 10*3/uL; Neutrophils # 6.5 10*3/uL (1.4-7.4); Neutrophils % 84.1 % (38.7-73.9); Platelet Count 165 T/CUMM (130-400); Red Cell Distribution Width 17.7 % (9.3-17.3); White Blood Count 7.7 T/CUMM (4-12)
[2018-07-24 04:34] LABS: Calcium 8.9 MG/DL (8.5-10.1); Osmolality,Calculated 290.4 MOS/KG (273-304); Potassium 4.5 MMOL/L (3.5-5.1)
[2018-07-24 05:50] LABS: Band Neutrophils 1 % (0-10); Lymphocytes 5 % (20-55); Platelet Estimate Adequate; Polychromasia Few; Segmented Neutrophils 89 % (50-85); Total Cells Counted 100
[2018-07-24 06:47] LABS: HIV Antigen/Antibody Result Nonreactive (Nonreactive); Hepatitis B Surface Ag Quant 0.13 Index; Hepatitis B Surface Ag Result Negative (Negative); Hepatitis C Virus Ab Quant < 0.02 Index; Hepatitis C Virus Ab Result Negative (Negative)
[2018-07-24] MEDS: methylPREDNISolone SOD SUC 40 MG/1 ML VIAL IV SCH ×2 (07:21→17:56)
[2018-07-24] MEDS: POLYETHYLENE GLYCOL POWDER 17 GM PACK PO SCH (08:59)
[2018-07-24] MEDS: DOXAZOSIN 1 MG TABLET PO SCH (09:00)
[2018-07-24] MEDS: LABETALOL 200 MG TABLET PO SCH ×2 (09:00→21:19)
[2018-07-24] MEDS: metOLazone 5 MG TABLET PO SCH (09:00)
[2018-07-24] MEDS: ASPIRIN EC 81 MG TABLET PO SCH (09:01)
[2018-07-24] MEDS: amLODIPine 10 MG TABLET PO SCH (09:01)
[2018-07-24] MEDS: sitaGLIPtin 25 MG TABLET PO SCH (09:01)
[2018-07-24] MEDS: SIMVASTATIN 10 MG TABLET PO SCH (09:02)
[2018-07-24] MEDS: CITALOPRAM 20 MG TABLET PO SCH (09:09)
[2018-07-24] MEDS: ALPRAZolam 0.25 MG TABLET PO PRN (09:09)
[2018-07-24] MEDS: LEVOFLOXACIN INJ 250 MG in PREMIX 1 EACH IV SCH (12:32)
[2018-07-24 16:33] LABS: ABG HCO3 34.8 MMOL/L (20-26); ABG Oxygen Saturation 52.8 % (95-100); ABG PCO2 59.6 MM HG (35-48); ABG PH 7.423 (7.35-7.45); ABG TCO2 35.3 MMOL/L (23-27)
[2018-07-24 16:36] LABS: ABG PO2 30.2 MM HG (80-95)
[2018-07-24 18:06] LABS: Apearance,Urine CLEAR (Clear); Bacteria,Urine Many /HPF (Few); Bilirubin,Urine Negative (Negative); Blood, Urine Negative (Negative); Glucose,Urine (UA) Negative (Negative); Ketones,Urine Negative (Negative); Mucus,Urine Occasional /LPF (Occasional); Nitrite,Urine Positive (Negative); Protein,Urine Negative; RBC,Urine <1 /HPF (0-4); Squamous Epithelial Cell,Urine Occasional /HPF (0-10); Urine Color Straw (Yellow); Urine Specific Gravity 1.006 (1.001-1.035); Urine Urobilinogen < 2.0 EU/DL (0.2-1.0); WBC,Urine 4 /HPF (0-6)
[2018-07-24 18:10] LABS: ABG Base Excess 12.5 MMOL/L (-2.5-2.5); ABG Oxygen Saturation 87.7 % (95-100); ABG PCO2 60.5 MM HG (35-48); ABG PH 7.422 (7.35-7.45); ABG PO2 55.6 MM HG (80-95); ABG TCO2 35.6 MMOL/L (23-27); Allen Test Positive; Pt O2 Delivery Device BIPAP
[2018-07-24] MEDS: INSULIN GLARGINE 100 UNIT/ML SUBCUT SCH (21:19)
[2018-07-24] MEDS: DONEPEZIL 5 MG TABLET PO SCH (21:19)
[2018-07-25] MEDS: FUROSEMIDE 40 MG/4 ML VIAL IV SCH ×3 (02:55→18:09)
[2018-07-25] MEDS: NITROGLYCERIN 2% OINT 1 INCH/GM PACK TOP SCH ×2 (03:02→07:17)
[2018-07-25] MEDS: ALBUTEROL/IPRATROPIUM 3 ML NEB RESP TX SCH ×6 (03:44→23:24)
[2018-07-25 04:38] LABS: Basophils % 0.2 % (0.0-0.8); Hematocrit 33.8 VOL% (35.7-47.0); Hemoglobin 10.7 GM/DL (12.0-16.0); Immature Granulocytes % 5.7 %; Immature Granulocytes Absolute 0.49 #; Lymphocytes # 0.4 10*3/uL (1.4-4.0); Lymphocytes % 4.9 % (21.3-54.2); Mean Corpuscular HGB Conc 31.7 GM/DL (32-36); Mean Corpuscular Hemoglobin 27 PG (27-34); Mean Corpuscular Volume 84.3 FL (87-102); Mean Platelet Volume 9.4 FL (9.6-12.0); Monocytes # 0.5 10*3/uL (0.11-0.8); Monocytes % 6.3 % (1.7-12.7); NRBC # 0.04 10*3/uL; Neutrophils # 7.2 10*3/uL (1.4-7.4); Neutrophils % 82.9 % (38.7-73.9); Platelet Count 185 T/CUMM (130-400); Red Blood Count 4.01 MC/CUMM (3.8-5.5); Red Cell Distribution Width 17.3 % (9.3-17.3); White Blood Count 8.6 T/CUMM (4-12)
[2018-07-25 05:04] LABS: Calcium 8.8 MG/DL (8.5-10.1); Osmolality,Calculated 294.2 MOS/KG (273-304)
[2018-07-25 05:05] LABS: Band Neutrophils 1 % (0-10); Hypochromasia 1+; Lymphocytes 10 % (20-55); Platelet Estimate Adequate; Segmented Neutrophils 82 % (50-85); Total Cells Counted 100
[2018-07-25] MEDS: INSULIN REGULAR 100 UNIT/ML SUBCUT SCH ×4 (07:08→18:07)
[2018-07-25] MEDS: methylPREDNISolone SOD SUC 40 MG/1 ML VIAL IV SCH ×3 (07:17→20:57)
[2018-07-25] MEDS: LABETALOL 200 MG TABLET PO SCH (09:30)
[2018-07-25] MEDS: metOLazone 5 MG TABLET PO SCH (09:53)
[2018-07-25] MEDS: DOXAZOSIN 1 MG TABLET PO SCH (09:53)
[2018-07-25] MEDS: CITALOPRAM 20 MG TABLET PO SCH (09:54)
[2018-07-25] MEDS: ASPIRIN EC 81 MG TABLET PO SCH (09:54)
[2018-07-25] MEDS: amLODIPine 10 MG TABLET PO SCH (09:54)
[2018-07-25] MEDS: ISOSORBIDE MONONITRATE 30 MG TABLET PO SCH ×2 (09:54→20:56)
[2018-07-25] MEDS: POLYETHYLENE GLYCOL POWDER 17 GM PACK PO SCH (09:55)
[2018-07-25] MEDS: sitaGLIPtin 25 MG TABLET PO SCH (10:05)
[2018-07-25] MEDS: LEVOFLOXACIN INJ 250 MG in PREMIX 1 EACH IV SCH (14:41)
[2018-07-25] MEDS: CARVEDILOL 3.125 MG TABLET PO SCH (18:07)
[2018-07-25] MEDS: DONEPEZIL 5 MG TABLET PO SCH (20:56)
[2018-07-25] MEDS: ATORVASTATIN 10 MG TABLET PO SCH (20:57)
[2018-07-25] MEDS: INSULIN GLARGINE 100 UNIT/ML SUBCUT SCH (20:57)
[2018-07-25] MEDS: ALPRAZolam 0.25 MG TABLET PO PRN (20:58)
[2018-07-26] MEDS: INSULIN REGULAR 100 UNIT/ML SUBCUT SCH ×4 (00:27→18:07)
[2018-07-26] MEDS: ALBUTEROL/IPRATROPIUM 3 ML NEB RESP TX SCH ×5 (03:50→20:15)
[2018-07-26 05:21] LABS: Basophils % 0.4 % (0.0-0.8); Hematocrit 34.3 VOL% (35.7-47.0); Hemoglobin 10.9 GM/DL (12.0-16.0); Immature Granulocytes % 8.4 %; Lymphocytes # 0.4 10*3/uL (1.4-4.0); Lymphocytes % 4.2 % (21.3-54.2); Mean Corpuscular HGB Conc 31.8 GM/DL (32-36); Mean Corpuscular Hemoglobin 27 PG (27-34); Mean Corpuscular Volume 83.7 FL (87-102); Mean Platelet Volume 9.9 FL (9.6-12.0); Monocytes # 0.7 10*3/uL (0.11-0.8); Monocytes % 7.6 % (1.7-12.7); NRBC # 0.04 10*3/uL; Neutrophils # 7.5 10*3/uL (1.4-7.4); Neutrophils % 79.4 % (38.7-73.9); Platelet Count 204 T/CUMM (130-400); Red Cell Distribution Width 17.3 % (9.3-17.3); White Blood Count 9.5 T/CUMM (4-12)
[2018-07-26] MEDS: methylPREDNISolone SOD SUC 40 MG/1 ML VIAL IV SCH ×4 (05:30→22:01)
[2018-07-26 05:45] LABS: Osmolality,Calculated 300.5 MOS/KG (273-304); Potassium 3.7 MMOL/L (3.5-5.1)
[2018-07-26 05:48] LABS: Band Neutrophils 1 % (0-10); Hypochromasia 1+; Lymphocytes 7 % (20-55); Platelet Estimate Adequate; Segmented Neutrophils 85 % (50-85); Total Cells Counted 100
[2018-07-26] MEDS: ASPIRIN EC 81 MG TABLET PO SCH (09:32)
[2018-07-26] MEDS: sitaGLIPtin 25 MG TABLET PO SCH (09:32)
[2018-07-26] MEDS: metOLazone 5 MG TABLET PO SCH (09:32)
[2018-07-26] MEDS: CITALOPRAM 20 MG TABLET PO SCH (09:32)
[2018-07-26] MEDS: CARVEDILOL 3.125 MG TABLET PO SCH ×2 (09:33→18:07)
[2018-07-26] MEDS: DOXAZOSIN 1 MG TABLET PO SCH (09:33)
[2018-07-26] MEDS: ISOSORBIDE MONONITRATE 30 MG TABLET PO SCH ×2 (09:36→22:04)
[2018-07-26] MEDS: amLODIPine 10 MG TABLET PO SCH (09:36)
[2018-07-26] MEDS: FUROSEMIDE 40 MG/4 ML VIAL IV SCH ×2 (09:37→15:12)
[2018-07-26] MEDS: POLYETHYLENE GLYCOL POWDER 17 GM PACK PO SCH (09:37)
[2018-07-26] MEDS: LEVOFLOXACIN INJ 250 MG in PREMIX 1 EACH IV SCH (12:46)
[2018-07-26] MEDS: INSULIN GLARGINE 100 UNIT/ML SUBCUT SCH (22:00)
[2018-07-26] MEDS: DONEPEZIL 5 MG TABLET PO SCH (22:03)
[2018-07-26] MEDS: ATORVASTATIN 10 MG TABLET PO SCH (22:04)
[2018-07-26] MEDS: ALPRAZolam 0.25 MG TABLET PO PRN (22:08)
[2018-07-27] MEDS: ALBUTEROL/IPRATROPIUM 3 ML NEB RESP TX SCH ×7 (00:30→23:16)
[2018-07-27] MEDS: INSULIN REGULAR 100 UNIT/ML SUBCUT SCH ×4 (01:05→18:07)
[2018-07-27] MEDS: methylPREDNISolone SOD SUC 40 MG/1 ML VIAL IV SCH ×4 (04:19→22:03)
[2018-07-27 04:38] LABS: Basophils % 0.3 % (0.0-0.8); Hematocrit 34.7 VOL% (35.7-47.0); Hemoglobin 11.4 GM/DL (12.0-16.0); Immature Granulocytes % 6.6 %; Lymphocytes # 0.5 10*3/uL (1.4-4.0); Lymphocytes % 4.5 % (21.3-54.2); Mean Corpuscular HGB Conc 32.9 GM/DL (32-36); Mean Corpuscular Hemoglobin 27 PG (27-34); Mean Corpuscular Volume 82.6 FL (87-102); Mean Platelet Volume 9.6 FL (9.6-12.0); Monocytes # 0.8 10*3/uL (0.11-0.8); Monocytes % 7.1 % (1.7-12.7); NRBC # 0.03 10*3/uL; Neutrophils # 8.6 10*3/uL (1.4-7.4); Neutrophils % 81.5 % (38.7-73.9); Platelet Count 186 T/CUMM (130-400); Red Cell Distribution Width 16.6 % (9.3-17.3); White Blood Count 10.6 T/CUMM (4-12)
[2018-07-27 04:58] LABS: Calcium 9.1 MG/DL (8.5-10.1)
[2018-07-27 04:59] LABS: Osmolality,Calculated 300.9 MOS/KG (273-304); Potassium 3.5 MMOL/L (3.5-5.1)
[2018-07-27 05:41] LABS: Band Neutrophils 7 % (0-10); Lymphocytes 5 % (20-55); Metamyelocytes 4 %; Myelocytes 1 %; Nucleated Red Blood Cells 1 (0-5); Platelet Estimate Normal; Segmented Neutrophils 76 % (50-85); Total Cells Counted 100
[2018-07-27] MEDS: FUROSEMIDE 40 MG/4 ML VIAL IV SCH ×2 (09:16→15:23)
[2018-07-27] MEDS: DOXAZOSIN 1 MG TABLET PO SCH (09:17)
[2018-07-27] MEDS: ISOSORBIDE MONONITRATE 30 MG TABLET PO SCH ×2 (09:17→21:58)
[2018-07-27] MEDS: CITALOPRAM 20 MG TABLET PO SCH (09:17)
[2018-07-27] MEDS: metOLazone 5 MG TABLET PO SCH (09:17)
[2018-07-27] MEDS: amLODIPine 10 MG TABLET PO SCH (09:17)
[2018-07-27] MEDS: sitaGLIPtin 25 MG TABLET PO SCH (09:17)
[2018-07-27] MEDS: ASPIRIN EC 81 MG TABLET PO SCH (09:18)
[2018-07-27] MEDS: CARVEDILOL 3.125 MG TABLET PO SCH ×2 (09:18→17:38)
[2018-07-27] MEDS: POLYETHYLENE GLYCOL POWDER 17 GM PACK PO SCH (09:18)
[2018-07-27] MEDS: POTASSIUM CHLORIDE 20 MEQ TABLET PO SCH ×2 (09:59→21:52)
[2018-07-27] MEDS: cefTRIAXone 1,000 MG in SYRINGE 1 EACH IV SCH (12:42)
[2018-07-27] MEDS: LEVOFLOXACIN INJ 250 MG in PREMIX 1 EACH IV SCH (14:08)
[2018-07-27] MEDS: INSULIN GLARGINE 100 UNIT/ML SUBCUT SCH (21:51)
[2018-07-27] MEDS: ATORVASTATIN 10 MG TABLET PO SCH (21:52)
[2018-07-27] MEDS: DONEPEZIL 5 MG TABLET PO SCH (21:52)
[2018-07-27] MEDS: ALPRAZolam 0.25 MG TABLET PO PRN (21:58)
[2018-07-28] MEDS: INSULIN REGULAR 100 UNIT/ML SUBCUT SCH ×3 (01:08→12:58)
[2018-07-28] MEDS: ALBUTEROL/IPRATROPIUM 3 ML NEB RESP TX SCH ×4 (03:16→14:29)
[2018-07-28] MEDS: methylPREDNISolone SOD SUC 40 MG/1 ML VIAL IV SCH ×3 (04:00→14:12)
[2018-07-28 04:07] LABS: Basophils % 0.2 % (0.0-0.8); Hematocrit 35.2 VOL% (35.7-47.0); Hemoglobin 11.5 GM/DL (12.0-16.0); Immature Granulocytes Absolute 0.89 #; Lymphocytes # 0.4 10*3/uL (1.4-4.0); Lymphocytes % 3.3 % (21.3-54.2); Mean Corpuscular HGB Conc 32.7 GM/DL (32-36); Mean Corpuscular Hemoglobin 27 PG (27-34); Mean Corpuscular Volume 82.8 FL (87-102); Mean Platelet Volume 9.9 FL (9.6-12.0); Monocytes % 7.9 % (1.7-12.7); NRBC # 0.02 10*3/uL; Neutrophils # 10.4 10*3/uL (1.4-7.4); Neutrophils % 81.6 % (38.7-73.9); Platelet Count 174 T/CUMM (130-400); Red Blood Count 4.25 MC/CUMM (3.8-5.5); Red Cell Distribution Width 16.2 % (9.3-17.3); White Blood Count 12.7 T/CUMM (4-12)
[2018-07-28 04:25] LABS: Calcium 9.2 MG/DL (8.5-10.1); Osmolality,Calculated 305.8 MOS/KG (273-304); Potassium 3.6 MMOL/L (3.5-5.1)
[2018-07-28 04:40] LABS: Band Neutrophils 1 % (0-10); Hypochromasia 1+; Lymphocytes 4 % (20-55); Platelet Estimate Adequate; Segmented Neutrophils 83 % (50-85); Total Cells Counted 100
[2018-07-28] MEDS: CARVEDILOL 3.125 MG TABLET PO SCH (09:04)
[2018-07-28] MEDS: amLODIPine 10 MG TABLET PO SCH (09:04)
[2018-07-28] MEDS: POTASSIUM CHLORIDE 20 MEQ TABLET PO SCH (09:05)
[2018-07-28] MEDS: CITALOPRAM 20 MG TABLET PO SCH (09:05)
[2018-07-28] MEDS: metOLazone 5 MG TABLET PO SCH (09:05)
[2018-07-28] MEDS: sitaGLIPtin 25 MG TABLET PO SCH (09:05)
[2018-07-28] MEDS: ISOSORBIDE MONONITRATE 30 MG TABLET PO SCH (09:05)
[2018-07-28] MEDS: FUROSEMIDE 40 MG/4 ML VIAL IV SCH (09:06)
[2018-07-28] MEDS: POLYETHYLENE GLYCOL POWDER 17 GM PACK PO SCH (09:07)
[2018-07-28] MEDS: DOXAZOSIN 1 MG TABLET PO SCH (09:07)
[2018-07-28] MEDS: ASPIRIN EC 81 MG TABLET PO SCH (09:07)
[2018-07-28 11:35] VITALS: BP 133/45
[2018-07-28] MEDS: cefTRIAXone 1,000 MG in SYRINGE 1 EACH IV SCH (14:00)
[2018-07-28] MEDS: LEVOFLOXACIN INJ 250 MG in PREMIX 1 EACH IV SCH (14:12)
[2018-07-28] MEDS ORDERED: NYSTATIN 500,000 UNIT/5 ML UDCUP SWISH/SWAL SCH (21:00)
== END 2018-07-28 15:10 | disposition hospice, home (50) | DRG 291 ==
LOC: EDUNIT# → EDBD → N.ED 18:58 → N.EDINP 21:38 → N.TELES 22:35 → N.CC 07-24 16:52 → N.TELES 07-26 14:05
PROVIDERS: ADMIT Family Medicine; ATTEND Family Medicine

== ENCOUNTER 2018-08-30 08:50 | Inpatient (IN) ==
[2018-08-30] MEDS ORDERED: ALBUTEROL/IPRATROPIUM 3 ML NEB RESP TX STA (09:24)
[2018-08-30] MEDS ORDERED: FUROSEMIDE 40 MG/4 ML VIAL IV STA (09:24)
[2018-08-30 09:39] LABS: Basophils % 0.4 % (0.0-0.8); Eosinophils % 0.4 % (0.00-10.9); Hemoglobin 10.9 GM/DL (12.0-16.0); Immature Granulocytes % 1.4 %; Immature Granulocytes Absolute 0.11 #; Lymphocytes # 0.6 10*3/uL (1.4-4.0); Lymphocytes % 7.5 % (21.3-54.2); Mean Corpuscular HGB Conc 32.1 GM/DL (32-36); Mean Corpuscular Hemoglobin 28 PG (27-34); Mean Corpuscular Volume 86.7 FL (87-102); Mean Platelet Volume 9.2 FL (9.6-12.0); Monocytes # 0.4 10*3/uL (0.11-0.8); Monocytes % 5.3 % (1.7-12.7); Neutrophils # 6.8 10*3/uL (1.4-7.4); Platelet Count 131 T/CUMM (130-400); Red Blood Count 3.92 MC/CUMM (3.8-5.5); Red Cell Distribution Width 17.1 % (9.3-17.3)
[2018-08-30 09:54] LABS: Albumin 2.9 G/DL (3.4-5.0); Bilirubin,Total 0.6 MG/DL (0.2-1.0); Calcium 8.6 MG/DL (8.5-10.1); Osmolality,Calculated 283.7 MOS/KG (273-304); Potassium 3.3 MMOL/L (3.5-5.1); Total Protein 6.7 G/DL (6.4-8.3)
[2018-08-30 09:57] LABS: ABG Base Excess 2.3 MMOL/L (-2.5-2.5); ABG HCO3 26.1 MMOL/L (20-26); ABG Oxygen Saturation 79.3 % (95-100); ABG PCO2 54.6 MM HG (35-48); ABG PH 7.336 (7.35-7.45); ABG PO2 45.7 MM HG (80-95); ABG TCO2 26.5 MMOL/L (23-27); Allen Test Positive
[2018-08-30] MEDS ORDERED: ONDANSETRON 4 MG/2 ML VIAL ONE (10:13)
[2018-08-30] MEDS ORDERED: ONDANSETRON 4 MG/2 ML VIAL IV STA (10:19)
[2018-08-30] MEDS ORDERED: ONDANSETRON 4 MG/2 ML VIAL IV PRN (10:27)
[2018-08-30] MEDS ORDERED: LORazepam 2 MG/1 ML VIAL ONE (10:49)
[2018-08-30] MEDS ORDERED: DEXTROSE 50% 25 GM/50 ML SYRINGE IV ONE (12:25)
[2018-08-30] MEDS ORDERED: GLUCAGON 1 MG VIAL IV PRN (12:25)
[2018-08-30] MEDS ORDERED: GLUCAGON 1 MG VIAL IM PRN (14:42)
[2018-08-30] MEDS ORDERED: methylPREDNISolone SOD SUC 40 MG/1 ML VIAL IV SCH (15:00)
[2018-08-30] MEDS: FUROSEMIDE 40 MG/4 ML VIAL IV SCH (16:00)
[2018-08-30] MEDS ORDERED: FUROSEMIDE 40 MG/4 ML VIAL IM SCH (16:00)
[2018-08-30] MEDS ORDERED: LABETALOL 20 MG/4 ML SYRINGE IV PRN (16:10)
[2018-08-30] MEDS: ALBUTEROL/IPRATROPIUM 3 ML NEB RESP TX SCH ×2 (16:20→20:16)
[2018-08-30] MEDS: INSULIN REGULAR 100 UNIT/ML SUBCUT SCH ×2 (17:11→20:14)
[2018-08-30] MEDS: INSULIN GLARGINE 100 UNIT/ML SUBCUT SCH (20:14)
[2018-08-30] MEDS: AMINOPHYLLINE 1,000 MG in SODIUM CHLORIDE 0.9% 460 ML IV SCH (20:40)
[2018-08-30] MEDS: DOCUSATE SODIUM 100 MG CAPSULE PO SCH (20:49)
[2018-08-30] MEDS: CARVEDILOL 3.125 MG TABLET PO SCH (20:49)
[2018-08-30] MEDS: ATORVASTATIN 10 MG TABLET PO SCH (20:49)
[2018-08-30] MEDS: DEXTROSE 50% 25 GM/50 ML SYRINGE IV PRN ×2 (20:49→22:31)
[2018-08-30] MEDS ORDERED: INSULIN GLARGINE 100 UNIT/ML SUBCUT SCH (21:00)
[2018-08-30] MEDS ORDERED: DEXTROSE 10% 500 ML IV SCH (22:30)
[2018-08-30] MEDS: methylPREDNISolone SOD SUC 40 MG/1 ML VIAL IV SCH (22:45)
[2018-08-31] MEDS: ALBUTEROL/IPRATROPIUM 3 ML NEB RESP TX SCH ×7 (00:04→23:40)
[2018-08-31] MEDS: DEXTROSE 50% 25 GM/50 ML SYRINGE IV PRN (01:05)
[2018-08-31] MEDS: methylPREDNISolone SOD SUC 40 MG/1 ML VIAL IV SCH ×4 (05:15→22:42)
[2018-08-31 06:12] LABS: Basophils % 0.2 % (0.0-0.8); Hematocrit 28.8 VOL% (35.7-47.0); Hemoglobin 9.1 GM/DL (12.0-16.0); Immature Granulocytes % 1.9 %; Immature Granulocytes Absolute 0.18 #; Lymphocytes # 0.6 10*3/uL (1.4-4.0); Lymphocytes % 6.5 % (21.3-54.2); Mean Corpuscular HGB Conc 31.6 GM/DL (32-36); Mean Corpuscular Hemoglobin 27 PG (27-34); Mean Corpuscular Volume 86.5 FL (87-102); Mean Platelet Volume 9.4 FL (9.6-12.0); Monocytes # 0.6 10*3/uL (0.11-0.8); Monocytes % 6.3 % (1.7-12.7); Neutrophils # 8.1 10*3/uL (1.4-7.4); Neutrophils % 85.1 % (38.7-73.9); Platelet Count 119 T/CUMM (130-400); Red Blood Count 3.33 MC/CUMM (3.8-5.5); Red Cell Distribution Width 17.2 % (9.3-17.3); White Blood Count 9.5 T/CUMM (4-12)
[2018-08-31 06:28] LABS: Calcium 8.6 MG/DL (8.5-10.1); Potassium 3.8 MMOL/L (3.5-5.1)
[2018-08-31 06:58] LABS: Hypochromasia 1+; Microcytosis Slight; Ovalocytes Slight; Platelet Estimate Decreased
[2018-08-31] MEDS: INSULIN REGULAR 100 UNIT/ML SUBCUT SCH ×4 (08:10→22:36)
[2018-08-31] MEDS: POTASSIUM CHLORIDE 20 MEQ TABLET PO SCH (08:40)
[2018-08-31] MEDS: PANTOPRAZOLE 40 MG TABLET PO SCH (08:40)
[2018-08-31] MEDS: DOXAZOSIN 1 MG TABLET PO SCH (08:40)
[2018-08-31] MEDS: ASPIRIN EC 81 MG TABLET PO SCH (08:40)
[2018-08-31] MEDS: FUROSEMIDE 40 MG/4 ML VIAL IV SCH ×2 (08:40→16:03)
[2018-08-31] MEDS: CARVEDILOL 3.125 MG TABLET PO SCH ×2 (08:40→22:41)
[2018-08-31] MEDS: DOCUSATE SODIUM 100 MG CAPSULE PO SCH ×2 (08:40→22:41)
[2018-08-31 14:01] LABS: Apearance,Urine CLOUDY (Clear); Bacteria,Urine Occasional /HPF (Few); Bilirubin,Urine Negative (Negative); Blood, Urine Negative (Negative); Glucose,Urine (UA) 150 mg/dL (Negative); Hyaline Casts,Urine 1 /LPF (0-3); Ketones,Urine Negative (Negative); Mucus,Urine Occasional /LPF (Occasional); Nitrite,Urine Negative (Negative); Protein,Urine 100 MG/DL; Urine Color Yellow (Yellow); Urine Specific Gravity 1.012 (1.001-1.035); Urine Urobilinogen < 2.0 EU/DL (0.2-1.0); WBC,Urine 21 /HPF (0-6)
[2018-08-31] MEDS: cefTRIAXone 1,000 MG in SYRINGE 1 EACH IV SCH (16:03)
[2018-08-31] MEDS ORDERED: FUROSEMIDE 40 MG/4 ML VIAL IV ONE (16:36)
[2018-08-31] MEDS ORDERED: INSULIN REGULAR 100 UNIT/ML SUBCUT ONE (18:05)
[2018-08-31] MEDS: AMINOPHYLLINE 1,000 MG in SODIUM CHLORIDE 0.9% 460 ML IV SCH (19:05)
[2018-08-31] MEDS ORDERED: MAGNESIUM HYDROXIDE SUSP 30 ML UDCUP PO PRN (20:38)
[2018-08-31] MEDS ORDERED: ENOXAPARIN 100 MG/ML SYRINGE SUBCUT ONE (21:19)
[2018-08-31] MEDS: ATORVASTATIN 10 MG TABLET PO SCH (22:42)
[2018-08-31] MEDS: INSULIN GLARGINE 100 UNIT/ML SUBCUT SCH (22:55)
[2018-09-01] MEDS: ALBUTEROL/IPRATROPIUM 3 ML NEB RESP TX SCH ×5 (02:39→20:49)
[2018-09-01] MEDS: methylPREDNISolone SOD SUC 40 MG/1 ML VIAL IV SCH ×4 (04:23→21:44)
[2018-09-01 06:10] LABS: Basophils % 0.1 % (0.0-0.8); Hematocrit 26.9 VOL% (35.7-47.0); Hemoglobin 8.6 GM/DL (12.0-16.0); Immature Granulocytes % 1.5 %; Immature Granulocytes Absolute 0.12 #; Lymphocytes # 0.4 10*3/uL (1.4-4.0); Lymphocytes % 4.9 % (21.3-54.2); Mean Corpuscular Hemoglobin 27 PG (27-34); Mean Corpuscular Volume 85.1 FL (87-102); Mean Platelet Volume 9.7 FL (9.6-12.0); Monocytes # 0.4 10*3/uL (0.11-0.8); Monocytes % 4.4 % (1.7-12.7); Neutrophils # 7.3 10*3/uL (1.4-7.4); Neutrophils % 89.1 % (38.7-73.9); Platelet Count 106 T/CUMM (130-400); Red Blood Count 3.16 MC/CUMM (3.8-5.5); Red Cell Distribution Width 16.9 % (9.3-17.3); White Blood Count 8.2 T/CUMM (4-12)
[2018-09-01 06:23] LABS: Calcium 8.9 MG/DL (8.5-10.1); Osmolality,Calculated 283.2 MOS/KG (273-304); Potassium 3.4 MMOL/L (3.5-5.1)
[2018-09-01 06:35] LABS: Band Neutrophils 15 % (0-10); Hypochromasia 1+; Lymphocytes 3 % (20-55); Ovalocytes Slight; Platelet Estimate Decreased; Segmented Neutrophils 78 % (50-85); Total Cells Counted 100
[2018-09-01 06:36] LABS: Microcytosis Slight
[2018-09-01] MEDS: INSULIN REGULAR 100 UNIT/ML SUBCUT SCH ×3 (07:50→17:25)
[2018-09-01] MEDS: FUROSEMIDE 40 MG/4 ML VIAL IV SCH ×2 (09:23→16:12)
[2018-09-01] MEDS: DOXAZOSIN 1 MG TABLET PO SCH (09:24)
[2018-09-01] MEDS: amLODIPine 10 MG TABLET PO SCH (09:25)
[2018-09-01] MEDS: CARVEDILOL 3.125 MG TABLET PO SCH ×2 (09:27→20:26)
[2018-09-01] MEDS: DOCUSATE SODIUM 100 MG CAPSULE PO SCH ×2 (09:27→20:26)
[2018-09-01] MEDS: ASPIRIN EC 81 MG TABLET PO SCH (09:28)
[2018-09-01] MEDS: PANTOPRAZOLE 40 MG TABLET PO SCH (09:28)
[2018-09-01] MEDS: POTASSIUM CHLORIDE 20 MEQ TABLET PO SCH ×2 (09:36→20:29)
[2018-09-01 14:09] LABS: Hematocrit 26.8 VOL% (35.7-47.0); Hemoglobin 8.6 GM/DL (12.0-16.0)
[2018-09-01] MEDS ORDERED: GLUCAGON 1 MG VIAL IM PRN (14:20)
[2018-09-01] MEDS ORDERED: DEXTROSE 50% 25 GM/50 ML SYRINGE IV PRN (14:20)
[2018-09-01] MEDS: cefTRIAXone 1,000 MG in SYRINGE 1 EACH IV SCH (16:14)
[2018-09-01] MEDS: ACETAMINOPHEN 325 MG TABLET PO PRN (16:16)
[2018-09-01] MEDS: ATORVASTATIN 10 MG TABLET PO SCH (20:26)
[2018-09-01] MEDS: INSULIN GLARGINE 100 UNIT/ML SUBCUT SCH (20:27)
[2018-09-02] MEDS: ALBUTEROL/IPRATROPIUM 3 ML NEB RESP TX SCH ×7 (00:17→23:48)
[2018-09-02] MEDS: INSULIN REGULAR 100 UNIT/ML SUBCUT SCH ×5 (01:10→21:18)
[2018-09-02] MEDS: methylPREDNISolone SOD SUC 40 MG/1 ML VIAL IV SCH ×4 (03:55→23:20)
[2018-09-02] MEDS: ACETAMINOPHEN 325 MG TABLET PO PRN ×2 (03:57→11:34)
[2018-09-02 05:47] LABS: Basophils % 0.1 % (0.0-0.8); Hematocrit 27.5 VOL% (35.7-47.0); Immature Granulocytes % 4.7 %; Immature Granulocytes Absolute 0.37 #; Lymphocytes # 0.3 10*3/uL (1.4-4.0); Lymphocytes % 3.7 % (21.3-54.2); Mean Corpuscular HGB Conc 32.7 GM/DL (32-36); Mean Corpuscular Hemoglobin 28 PG (27-34); Mean Corpuscular Volume 84.9 FL (87-102); Mean Platelet Volume 9.9 FL (9.6-12.0); Monocytes # 0.3 10*3/uL (0.11-0.8); Monocytes % 3.9 % (1.7-12.7); NRBC # 0.03 10*3/uL; Neutrophils # 6.9 10*3/uL (1.4-7.4); Neutrophils % 87.6 % (38.7-73.9); Platelet Count 116 T/CUMM (130-400); Red Blood Count 3.24 MC/CUMM (3.8-5.5); Red Cell Distribution Width 16.5 % (9.3-17.3); White Blood Count 7.9 T/CUMM (4-12)
[2018-09-02 06:08] LABS: Calcium 8.9 MG/DL (8.5-10.1); Osmolality,Calculated 287.5 MOS/KG (273-304); Potassium 3.4 MMOL/L (3.5-5.1)
[2018-09-02 06:09] LABS: Band Neutrophils 1 % (0-10); Lymphocytes 4 % (20-55); Segmented Neutrophils 90 % (50-85); Total Cells Counted 100
[2018-09-02 06:10] LABS: Hypochromasia 1+; Microcytosis Slight; Platelet Estimate Decreased
[2018-09-02] MEDS: DOXAZOSIN 1 MG TABLET PO SCH (10:58)
[2018-09-02] MEDS: DOCUSATE SODIUM 100 MG CAPSULE PO SCH ×2 (10:59→21:17)
[2018-09-02] MEDS: amLODIPine 10 MG TABLET PO SCH (10:59)
[2018-09-02] MEDS: POTASSIUM CHLORIDE 20 MEQ TABLET PO SCH ×2 (10:59→21:18)
[2018-09-02] MEDS: ASPIRIN EC 81 MG TABLET PO SCH (10:59)
[2018-09-02] MEDS: PANTOPRAZOLE 40 MG TABLET PO SCH (10:59)
[2018-09-02] MEDS: CARVEDILOL 3.125 MG TABLET PO SCH ×2 (10:59→21:17)
[2018-09-02] MEDS: FUROSEMIDE 40 MG/4 ML VIAL IV SCH ×2 (11:00→15:45)
[2018-09-02] MEDS ORDERED: METOPROLOL TARTRATE 5 MG/5 ML VIAL IV ONE (11:59)
[2018-09-02] MEDS ORDERED: AMIODARONE INJ 150 MG in DEXTROSE 5% 100 ML IV ONE (12:14)
[2018-09-02] MEDS ORDERED: AMIODARONE INJ 450 MG in DEXTROSE 5% 241 ML IV SCH (12:30)
[2018-09-02] MEDS: ENOXAPARIN 40 MG/0.4 ML SYRINGE SUBCUT SCH (12:44)
[2018-09-02 15:26] LABS: Calcium 8.5 MG/DL (8.5-10.1)
[2018-09-02 15:27] LABS: Osmolality,Calculated 286.9 MOS/KG (273-304); Potassium 3.9 MMOL/L (3.5-5.1)
[2018-09-02] MEDS: cefTRIAXone 1,000 MG in SYRINGE 1 EACH IV SCH (15:44)
[2018-09-02] MEDS: HydrOXYzine PAMOATE 50 MG CAPSULE PO PRN (18:28)
[2018-09-02] MEDS: AMIODARONE INJ 450 MG in DEXTROSE 5% 241 ML IV SCH (18:53)
[2018-09-02] MEDS: ATORVASTATIN 10 MG TABLET PO SCH (21:17)
[2018-09-02] MEDS: INSULIN GLARGINE 100 UNIT/ML SUBCUT SCH (21:18)
[2018-09-03] MEDS: ALBUTEROL/IPRATROPIUM 3 ML NEB RESP TX SCH ×6 (03:48→23:14)
[2018-09-03 04:08] LABS: Basophils % 0.4 % (0.0-0.8); Hemoglobin 9.2 GM/DL (12.0-16.0); Immature Granulocytes % 6.4 %; Immature Granulocytes Absolute 0.61 #; Lymphocytes # 0.3 10*3/uL (1.4-4.0); Mean Corpuscular HGB Conc 32.9 GM/DL (32-36); Mean Corpuscular Hemoglobin 28 PG (27-34); Mean Corpuscular Volume 84.6 FL (87-102); Mean Platelet Volume 9.4 FL (9.6-12.0); Monocytes # 0.4 10*3/uL (0.11-0.8); Monocytes % 4.1 % (1.7-12.7); NRBC # 0.03 10*3/uL; Neutrophils # 8.1 10*3/uL (1.4-7.4); Neutrophils % 86.1 % (38.7-73.9); Platelet Count 113 T/CUMM (130-400); Red Blood Count 3.31 MC/CUMM (3.8-5.5); Red Cell Distribution Width 16.3 % (9.3-17.3); White Blood Count 9.5 T/CUMM (4-12)
[2018-09-03 05:04] LABS: Band Neutrophils 4 % (0-10); Lymphocytes 4 % (20-55); Metamyelocytes 2 %; Segmented Neutrophils 87 % (50-85); Total Cells Counted 100
[2018-09-03 05:05] LABS: Platelet Estimate Decreased; Polychromasia 2+
[2018-09-03] MEDS: HydrOXYzine PAMOATE 50 MG CAPSULE PO PRN (05:13)
[2018-09-03 06:32] LABS: Calcium 8.9 MG/DL (8.5-10.1); Osmolality,Calculated 290.5 MOS/KG (273-304); Potassium 3.7 MMOL/L (3.5-5.1)
[2018-09-03] MEDS: methylPREDNISolone SOD SUC 40 MG/1 ML VIAL IV SCH ×4 (06:33→21:05)
[2018-09-03] MEDS: POTASSIUM CHLORIDE 20 MEQ TABLET PO SCH ×2 (08:44→20:58)
[2018-09-03] MEDS: DOCUSATE SODIUM 100 MG CAPSULE PO SCH ×2 (08:44→20:58)
[2018-09-03] MEDS: INSULIN REGULAR 100 UNIT/ML SUBCUT SCH ×4 (08:45→20:58)
[2018-09-03] MEDS: ASPIRIN EC 81 MG TABLET PO SCH (08:45)
[2018-09-03] MEDS: CARVEDILOL 3.125 MG TABLET PO SCH ×2 (08:45→21:09)
[2018-09-03] MEDS: amLODIPine 10 MG TABLET PO SCH (08:45)
[2018-09-03] MEDS: PANTOPRAZOLE 40 MG TABLET PO SCH (08:45)
[2018-09-03] MEDS: DOXAZOSIN 1 MG TABLET PO SCH (08:45)
[2018-09-03] MEDS: FUROSEMIDE 40 MG/4 ML VIAL IV SCH ×2 (08:46→16:24)
[2018-09-03] MEDS ORDERED: DEXTROSE 50% 25 GM/50 ML VIAL IV PRN (10:17)
[2018-09-03] MEDS ORDERED: GLUCAGON 1 MG VIAL IM PRN (10:17)
[2018-09-03] MEDS: AMIODARONE INJ 450 MG in DEXTROSE 5% 241 ML IV SCH (10:32)
[2018-09-03] MEDS ORDERED: ACETAMINOPHEN 325 MG TABLET PO PRN (12:00)
[2018-09-03] MEDS: ENOXAPARIN 40 MG/0.4 ML SYRINGE SUBCUT SCH (12:07)
[2018-09-03] MEDS: cefTRIAXone 1,000 MG in SYRINGE 1 EACH IV SCH (16:23)
[2018-09-03] MEDS: BUMETANIDE 2.5 MG/10 ML VIAL IV SCH (17:32)
[2018-09-03] MEDS: ATORVASTATIN 10 MG TABLET PO SCH (20:57)
[2018-09-03] MEDS: ALPRAZolam 0.25 MG TABLET PO PRN (20:58)
[2018-09-03] MEDS: INSULIN GLARGINE 100 UNIT/ML SUBCUT SCH (20:59)
[2018-09-04] MEDS: methylPREDNISolone SOD SUC 40 MG/1 ML VIAL IV SCH ×4 (03:50→21:38)
[2018-09-04 03:57] LABS: Basophils # 0.1 10*3/uL (0.0-0.2); Basophils % 0.8 % (0.0-0.8); Hematocrit 27.7 VOL% (35.7-47.0); Immature Granulocytes % 12.5 %; Immature Granulocytes Absolute 1.06 #; Lymphocytes # 0.4 10*3/uL (1.4-4.0); Lymphocytes % 4.3 % (21.3-54.2); Mean Corpuscular HGB Conc 32.5 GM/DL (32-36); Mean Corpuscular Hemoglobin 27 PG (27-34); Mean Corpuscular Volume 83.7 FL (87-102); Mean Platelet Volume 9.9 FL (9.6-12.0); Monocytes # 0.4 10*3/uL (0.11-0.8); Monocytes % 4.8 % (1.7-12.7); NRBC # 0.04 10*3/uL; Neutrophils # 6.6 10*3/uL (1.4-7.4); Neutrophils % 77.6 % (38.7-73.9); Platelet Count 117 T/CUMM (130-400); Red Blood Count 3.31 MC/CUMM (3.8-5.5); Red Cell Distribution Width 15.9 % (9.3-17.3); White Blood Count 8.5 T/CUMM (4-12)
[2018-09-04 04:13] LABS: Calcium 8.7 MG/DL (8.5-10.1); Osmolality,Calculated 294.8 MOS/KG (273-304); Potassium 3.8 MMOL/L (3.5-5.1)
[2018-09-04 04:38] LABS: Nucleated Red Blood Cells 3 (0-5)
[2018-09-04 04:39] LABS: Band Neutrophils 3 % (0-10); Hypochromasia 2+; Lymphocytes 4 % (20-55); Metamyelocytes 3 %; Platelet Estimate Decreased; Segmented Neutrophils 86 % (50-85); Total Cells Counted 100
[2018-09-04] MEDS: ALBUTEROL/IPRATROPIUM 3 ML NEB RESP TX SCH ×5 (04:40→20:33)
[2018-09-04] MEDS: POTASSIUM CHLORIDE 20 MEQ TABLET PO SCH ×2 (09:03→21:31)
[2018-09-04] MEDS: PANTOPRAZOLE 40 MG TABLET PO SCH (09:03)
[2018-09-04] MEDS: ASPIRIN EC 81 MG TABLET PO SCH (09:04)
[2018-09-04] MEDS: DOCUSATE SODIUM 100 MG CAPSULE PO SCH ×2 (09:04→21:30)
[2018-09-04] MEDS: CARVEDILOL 3.125 MG TABLET PO SCH ×2 (09:04→21:31)
[2018-09-04] MEDS: INSULIN REGULAR 100 UNIT/ML SUBCUT SCH ×4 (09:04→21:30)
[2018-09-04] MEDS: FLECAINIDE 50 MG TABLET PO SCH ×2 (09:04→21:30)
[2018-09-04] MEDS: amLODIPine 10 MG TABLET PO SCH (09:04)
[2018-09-04] MEDS: DOXAZOSIN 1 MG TABLET PO SCH (09:04)
[2018-09-04] MEDS: FUROSEMIDE 40 MG/4 ML VIAL IV SCH ×2 (09:05→15:54)
[2018-09-04] MEDS: BUMETANIDE 2.5 MG/10 ML VIAL IV SCH (09:06)
[2018-09-04] MEDS ORDERED: INSULIN GLARGINE 100 UNIT/ML SUBCUT SCH (10:20)
[2018-09-04] MEDS: cefTRIAXone 1,000 MG in SYRINGE 1 EACH IV SCH (15:53)
[2018-09-04] MEDS: ATORVASTATIN 10 MG TABLET PO SCH (21:30)
[2018-09-04] MEDS: ALPRAZolam 0.25 MG TABLET PO PRN (21:30)
[2018-09-05] MEDS: ALBUTEROL/IPRATROPIUM 3 ML NEB RESP TX SCH ×7 (00:28→23:07)
[2018-09-05] MEDS: methylPREDNISolone SOD SUC 40 MG/1 ML VIAL IV SCH ×2 (04:30→09:38)
[2018-09-05 04:39] LABS: Basophils # 0.1 10*3/uL (0.0-0.2); Basophils % 0.6 % (0.0-0.8); Hematocrit 27.9 VOL% (35.7-47.0); Hemoglobin 9.3 GM/DL (12.0-16.0); Immature Granulocytes % 16.8 %; Immature Granulocytes Absolute 2.62 #; Lymphocytes # 0.7 10*3/uL (1.4-4.0); Lymphocytes % 4.6 % (21.3-54.2); Mean Corpuscular HGB Conc 33.3 GM/DL (32-36); Mean Corpuscular Hemoglobin 28 PG (27-34); Mean Corpuscular Volume 82.8 FL (87-102); Mean Platelet Volume 10.3 FL (9.6-12.0); Monocytes # 0.9 10*3/uL (0.11-0.8); Monocytes % 5.5 % (1.7-12.7); NRBC # 0.09 10*3/uL; Neutrophils # 11.3 10*3/uL (1.4-7.4); Neutrophils % 72.5 % (38.7-73.9); Platelet Count 153 T/CUMM (130-400); Red Blood Count 3.37 MC/CUMM (3.8-5.5); White Blood Count 15.6 T/CUMM (4-12)
[2018-09-05 05:04] LABS: Calcium 8.8 MG/DL (8.5-10.1); Osmolality,Calculated 290.5 MOS/KG (273-304); Potassium 4.3 MMOL/L (3.5-5.1)
[2018-09-05 05:17] LABS: Band Neutrophils 2 % (0-10); Lymphocytes 12 % (20-55); Metamyelocytes 5 %; Myelocytes 1 %; Nucleated Red Blood Cells 1 (0-5); Segmented Neutrophils 74 % (50-85); Total Cells Counted 100
[2018-09-05 05:19] LABS: Platelet Estimate Normal; Polychromasia Few
[2018-09-05] MEDS: FUROSEMIDE 40 MG/4 ML VIAL IV SCH ×2 (09:40→15:24)
[2018-09-05] MEDS: BUMETANIDE 2.5 MG/10 ML VIAL IV SCH (09:43)
[2018-09-05] MEDS: INSULIN REGULAR 100 UNIT/ML SUBCUT SCH ×4 (09:57→20:02)
[2018-09-05] MEDS: amLODIPine 10 MG TABLET PO SCH (09:58)
[2018-09-05] MEDS: POTASSIUM CHLORIDE 20 MEQ TABLET PO SCH ×2 (09:58→20:03)
[2018-09-05] MEDS: DOXAZOSIN 1 MG TABLET PO SCH (09:58)
[2018-09-05] MEDS: DOCUSATE SODIUM 100 MG CAPSULE PO SCH ×2 (09:58→20:03)
[2018-09-05] MEDS: FLECAINIDE 50 MG TABLET PO SCH ×2 (09:58→20:03)
[2018-09-05] MEDS: CARVEDILOL 3.125 MG TABLET PO SCH ×2 (09:58→20:03)
[2018-09-05] MEDS: ASPIRIN EC 81 MG TABLET PO SCH (09:59)
[2018-09-05] MEDS: PANTOPRAZOLE 40 MG TABLET PO SCH (09:59)
[2018-09-05] MEDS: predniSONE 20 MG TABLET PO SCH (12:38)
[2018-09-05] MEDS: ASPIRIN EC 325 MG TABLET PO SCH (14:48)
[2018-09-05] MEDS: cefTRIAXone 1,000 MG in SYRINGE 1 EACH IV SCH (15:17)
[2018-09-05] MEDS ORDERED: INSULIN GLARGINE 100 UNIT/ML SUBCUT SCH (16:41)
[2018-09-05] MEDS: ALPRAZolam 0.25 MG TABLET PO PRN (20:03)
[2018-09-05] MEDS: ATORVASTATIN 10 MG TABLET PO SCH (20:03)
[2018-09-06] MEDS: ALBUTEROL/IPRATROPIUM 3 ML NEB RESP TX SCH ×3 (02:57→11:05)
[2018-09-06 05:02] LABS: Basophils # 0.1 10*3/uL (0.0-0.2); Basophils % 0.5 % (0.0-0.8); Hematocrit 27.5 VOL% (35.7-47.0); Hemoglobin 9.1 GM/DL (12.0-16.0); Immature Granulocytes % 25.1 %; Immature Granulocytes Absolute 3.87 #; Lymphocytes # 0.8 10*3/uL (1.4-4.0); Lymphocytes % 5.1 % (21.3-54.2); Mean Corpuscular HGB Conc 33.1 GM/DL (32-36); Mean Corpuscular Hemoglobin 27 PG (27-34); Mean Corpuscular Volume 82.8 FL (87-102); Mean Platelet Volume 10.5 FL (9.6-12.0); Monocytes # 0.9 10*3/uL (0.11-0.8); Monocytes % 6.1 % (1.7-12.7); NRBC # 0.08 10*3/uL; Neutrophils # 9.8 10*3/uL (1.4-7.4); Neutrophils % 63.2 % (38.7-73.9); Platelet Count 176 T/CUMM (130-400); Red Blood Count 3.32 MC/CUMM (3.8-5.5); Red Cell Distribution Width 16.2 % (9.3-17.3); White Blood Count 15.4 T/CUMM (4-12)
[2018-09-06 05:18] LABS: Calcium 8.6 MG/DL (8.5-10.1); Osmolality,Calculated 291.9 MOS/KG (273-304); Potassium 4.4 MMOL/L (3.5-5.1)
[2018-09-06 05:35] LABS: Band Neutrophils 6 % (0-10); Hypochromasia 1+; Lymphocytes 9 % (20-55); Nucleated Red Blood Cells 1 (0-5); Ovalocytes Slight; Platelet Estimate Adequate; Segmented Neutrophils 82 % (50-85); Total Cells Counted 100
[2018-09-06] MEDS: INSULIN REGULAR 100 UNIT/ML SUBCUT SCH ×2 (09:18→12:32)
[2018-09-06] MEDS: predniSONE 20 MG TABLET PO SCH (10:55)
[2018-09-06] MEDS: DOXAZOSIN 1 MG TABLET PO SCH (10:55)
[2018-09-06] MEDS: CARVEDILOL 3.125 MG TABLET PO SCH (10:55)
[2018-09-06] MEDS: FLECAINIDE 50 MG TABLET PO SCH (10:55)
[2018-09-06] MEDS: POTASSIUM CHLORIDE 20 MEQ TABLET PO SCH (10:56)
[2018-09-06] MEDS: amLODIPine 10 MG TABLET PO SCH (10:56)
[2018-09-06] MEDS: DOCUSATE SODIUM 100 MG CAPSULE PO SCH (10:56)
[2018-09-06] MEDS: ASPIRIN EC 325 MG TABLET PO SCH (10:56)
[2018-09-06] MEDS: PANTOPRAZOLE 40 MG TABLET PO SCH (10:57)
[2018-09-06] MEDS: FUROSEMIDE 40 MG/4 ML VIAL IV SCH (11:31)
[2018-09-06 12:40] VITALS: BP 148/83
[2018-09-06] MEDS ORDERED: FUROSEMIDE 80 MG TABLET PO SCH (16:00)
[2018-09-08] MEDS ORDERED: predniSONE 10 MG TABLET PO SCH (09:00)
[2018-09-11] MEDS ORDERED: predniSONE 20 MG TABLET PO SCH (09:00)
[2018-09-14] MEDS ORDERED: predniSONE 10 MG TABLET PO SCH (09:00)
== END 2018-09-06 13:29 | DRG 166 ==
LOC: EDBD → EDUNIT# → N.ED 08:50 → N.EDINP 10:26 → N.CC 11:10 → N.TELEN 09-01 12:53
PROVIDERS: ADMIT Family Medicine; ATTEND Family Medicine

== ENCOUNTER 2018-10-06 13:34 | Inpatient (IN) ==
[2018-10-06] MEDS ORDERED: FUROSEMIDE 100 MG/10 ML VIAL IV STA (14:09)
[2018-10-06 14:18] LABS: ABG Base Excess 7.4 MMOL/L (-2.5-2.5); ABG HCO3 33.3 MMOL/L (20-26); ABG Oxygen Saturation 95.8 % (95-100); ABG PCO2 53.2 MM HG (35-48); ABG PH 7.414 (7.35-7.45); ABG PO2 84.4 MM HG (80-95); ABG TCO2 34.9 MMOL/L (23-27)
[2018-10-06 14:30] LABS: Basophils # 0.1 10*3/uL (0.0-0.2); Basophils % 0.4 % (0.0-0.8); Eosinophils % 0.3 % (0.00-10.9); Hematocrit 27.9 VOL% (35.7-47.0); Hemoglobin 8.5 GM/DL (12.0-16.0); Immature Granulocytes % 3.5 %; Immature Granulocytes Absolute 0.41 #; Lymphocytes # 0.6 10*3/uL (1.4-4.0); Lymphocytes % 4.8 % (21.3-54.2); Mean Corpuscular HGB Conc 30.5 GM/DL (32-36); Mean Corpuscular Hemoglobin 28 PG (27-34); Mean Corpuscular Volume 93.3 FL (87-102); Monocytes % 8.3 % (1.7-12.7); NRBC # 0.03 10*3/uL; Neutrophils # 9.7 10*3/uL (1.4-7.4); Neutrophils % 82.7 % (38.7-73.9); Platelet Count 148 T/CUMM (130-400); Red Blood Count 2.99 MC/CUMM (3.8-5.5); Red Cell Distribution Width 18.1 % (9.3-17.3); White Blood Count 11.8 T/CUMM (4-12)
[2018-10-06 14:52] LABS: Albumin 3.1 G/DL (3.4-5.0); Bilirubin,Total 1.7 MG/DL (0.2-1.0); Calcium 8.7 MG/DL (8.5-10.1); Osmolality,Calculated 283.2 MOS/KG (273-304); Total Protein 6.6 G/DL (6.4-8.3)
[2018-10-06 14:55] LABS: Apearance,Urine Slightly Hazy (Clear); Bacteria,Urine Moderate /HPF (Few); Band Neutrophils 7 % (0-10); Bilirubin,Urine Negative (Negative); Blood, Urine Negative (Negative); Eosinophils 2 % (0-10); Glucose,Urine (UA) 150 mg/dL (Negative); Ketones,Urine Negative (Negative); Lymphocytes 4 % (20-55); Nitrite,Urine Negative (Negative); Nucleated Red Blood Cells 1 (0-5); Protein,Urine 30 MG/DL; RBC,Urine 1 /HPF (0-4); Segmented Neutrophils 77 % (50-85); Squamous Epithelial Cell,Urine Occasional /HPF (0-10); Total Cells Counted 100; Urine Color Yellow (Yellow); Urine Specific Gravity 1.008 (1.001-1.035); Urine Urobilinogen < 2.0 EU/DL (0.2-1.0); WBC,Urine 78 /HPF (0-6)
[2018-10-06 14:56] LABS: Anisocytosis 1+; Hypochromasia Slight; Macrocytosis 1+; Microcytosis 1+; Platelet Estimate Adequate; Polychromasia 1+
[2018-10-06] MEDS ORDERED: MORPHINE 4 MG/1 ML VIAL IV STA (15:44)
[2018-10-06] MEDS ORDERED: GLUCAGON 1 MG VIAL IM PRN (17:15)
[2018-10-06] MEDS ORDERED: ONDANSETRON 4 MG/2 ML VIAL IV PRN (17:15)
[2018-10-06] MEDS: INSULIN LISPRO 100 UNIT/ML SUBCUT SCH ×2 (19:03→20:53)
[2018-10-06] MEDS: DONEPEZIL 5 MG TABLET PO SCH (20:52)
[2018-10-06] MEDS: DOCUSATE SODIUM 100 MG CAPSULE PO SCH (20:52)
[2018-10-06] MEDS: methylPREDNISolone SOD SUC 40 MG/1 ML VIAL IV SCH (20:52)
[2018-10-06] MEDS: CARVEDILOL 3.125 MG TABLET PO SCH (20:52)
[2018-10-06] MEDS: ATORVASTATIN 10 MG TABLET PO SCH (20:53)
[2018-10-06] MEDS: FLECAINIDE 50 MG TABLET PO SCH (20:54)
[2018-10-06] MEDS ORDERED: INSULIN GLARGINE 100 UNIT/ML SUBCUT SCH (21:00)
[2018-10-06] MEDS ORDERED: INSULIN REGULAR 100 UNIT/ML SUBCUT SCH (21:00)
[2018-10-07] MEDS: DEXTROSE 50% 25 GM/50 ML SYRINGE IV PRN ×2 (01:21→03:09)
[2018-10-07 05:50] LABS: Basophils % 0.4 % (0.0-0.8); Eosinophils % 0.4 % (0.00-10.9); Hematocrit 25.9 VOL% (35.7-47.0); Hemoglobin 7.8 GM/DL (12.0-16.0); Immature Granulocytes % 3.6 %; Immature Granulocytes Absolute 0.26 #; Lymphocytes # 0.9 10*3/uL (1.4-4.0); Lymphocytes % 12.6 % (21.3-54.2); Mean Corpuscular HGB Conc 30.1 GM/DL (32-36); Mean Corpuscular Hemoglobin 28 PG (27-34); Mean Corpuscular Volume 94.2 FL (87-102); Mean Platelet Volume 9.5 FL (9.6-12.0); Monocytes # 0.9 10*3/uL (0.11-0.8); Monocytes % 12.4 % (1.7-12.7); Neutrophils # 5.1 10*3/uL (1.4-7.4); Neutrophils % 70.6 % (38.7-73.9); Platelet Count 143 T/CUMM (130-400); Red Blood Count 2.75 MC/CUMM (3.8-5.5); Red Cell Distribution Width 18.1 % (9.3-17.3); White Blood Count 7.2 T/CUMM (4-12)
[2018-10-07 06:32] LABS: Albumin 2.7 G/DL (3.4-5.0); Bilirubin,Total 0.5 MG/DL (0.2-1.0); Calcium 8.6 MG/DL (8.5-10.1); Potassium 3.3 MMOL/L (3.5-5.1); Total Protein 6.4 G/DL (6.4-8.3)
[2018-10-07] MEDS: INSULIN LISPRO 100 UNIT/ML SUBCUT SCH ×4 (08:37→21:19)
[2018-10-07] MEDS: CITALOPRAM 40 MG TABLET PO SCH (09:42)
[2018-10-07] MEDS: CARVEDILOL 3.125 MG TABLET PO SCH ×2 (09:42→21:08)
[2018-10-07] MEDS: FLECAINIDE 50 MG TABLET PO SCH ×2 (09:42→21:08)
[2018-10-07] MEDS: DOCUSATE SODIUM 100 MG CAPSULE PO SCH ×2 (09:43→21:08)
[2018-10-07] MEDS: DOXAZOSIN 4 MG TABLET PO SCH (09:43)
[2018-10-07] MEDS: amLODIPine 10 MG TABLET PO SCH (09:43)
[2018-10-07] MEDS: PANTOPRAZOLE 40 MG TABLET PO SCH (09:43)
[2018-10-07] MEDS: POTASSIUM CHLORIDE 20 MEQ TABLET PO SCH (09:43)
[2018-10-07] MEDS: FUROSEMIDE 40 MG/4 ML VIAL IV SCH ×2 (09:43→17:40)
[2018-10-07] MEDS: methylPREDNISolone SOD SUC 40 MG/1 ML VIAL IV SCH ×2 (09:43→21:09)
[2018-10-07] MEDS: ASPIRIN EC 325 MG TABLET PO SCH (09:43)
[2018-10-07] MEDS: cefTRIAXone 1,000 MG in SYRINGE 1 EACH IV SCH (12:46)
[2018-10-07] MEDS: ZINC OXIDE PASTE 113 GM TUBE TOP SCH ×2 (14:40→21:19)
[2018-10-07] MEDS: ATORVASTATIN 10 MG TABLET PO SCH (21:09)
[2018-10-07] MEDS: DONEPEZIL 5 MG TABLET PO SCH (21:09)
[2018-10-08 04:29] LABS: White Blood Count 6.8 T/CUMM (4-12)
[2018-10-08 04:30] LABS: Basophils % 0.3 % (0.0-0.8); Hematocrit 28.2 VOL% (35.7-47.0); Hemoglobin 8.6 GM/DL (12.0-16.0); Immature Granulocytes % 4.6 %; Immature Granulocytes Absolute 0.31 #; Lymphocytes # 0.4 10*3/uL (1.4-4.0); Mean Corpuscular HGB Conc 30.5 GM/DL (32-36); Mean Corpuscular Hemoglobin 28 PG (27-34); Mean Corpuscular Volume 93.1 FL (87-102); Mean Platelet Volume 9.2 FL (9.6-12.0); Monocytes # 0.2 10*3/uL (0.11-0.8); Monocytes % 2.5 % (1.7-12.7); Neutrophils # 5.9 10*3/uL (1.4-7.4); Neutrophils % 86.6 % (38.7-73.9); Platelet Count 146 T/CUMM (130-400); Red Blood Count 3.03 MC/CUMM (3.8-5.5); Red Cell Distribution Width 17.2 % (9.3-17.3)
[2018-10-08 04:58] LABS: Albumin 2.7 G/DL (3.4-5.0); Bilirubin,Total 0.7 MG/DL (0.2-1.0); Calcium 8.8 MG/DL (8.5-10.1); Osmolality,Calculated 283.1 MOS/KG (273-304); Potassium 3.7 MMOL/L (3.5-5.1); Total Protein 6.8 G/DL (6.4-8.3)
[2018-10-08] MEDS: FUROSEMIDE 40 MG/4 ML VIAL IV SCH ×2 (09:14→16:50)
[2018-10-08] MEDS: FLECAINIDE 50 MG TABLET PO SCH ×2 (09:19→20:55)
[2018-10-08] MEDS: INSULIN LISPRO 100 UNIT/ML SUBCUT SCH ×4 (09:19→20:56)
[2018-10-08] MEDS: CITALOPRAM 40 MG TABLET PO SCH (09:19)
[2018-10-08] MEDS: ASPIRIN EC 325 MG TABLET PO SCH (09:20)
[2018-10-08] MEDS: PANTOPRAZOLE 40 MG TABLET PO SCH (09:20)
[2018-10-08] MEDS: POTASSIUM CHLORIDE 20 MEQ TABLET PO SCH (09:20)
[2018-10-08] MEDS: CARVEDILOL 3.125 MG TABLET PO SCH ×2 (09:20→20:55)
[2018-10-08] MEDS: DOCUSATE SODIUM 100 MG CAPSULE PO SCH ×2 (09:20→20:55)
[2018-10-08] MEDS: amLODIPine 10 MG TABLET PO SCH (09:20)
[2018-10-08] MEDS: methylPREDNISolone SOD SUC 40 MG/1 ML VIAL IV SCH ×2 (09:28→20:56)
[2018-10-08] MEDS: DOXAZOSIN 4 MG TABLET PO SCH (09:28)
[2018-10-08] MEDS: ZINC OXIDE PASTE 113 GM TUBE TOP SCH ×2 (09:30→21:00)
[2018-10-08] MEDS: cefTRIAXone 1,000 MG in SYRINGE 1 EACH IV SCH (12:31)
[2018-10-08] MEDS: ALBUTEROL/IPRATROPIUM 3 ML NEB RESP TX PRN ×2 (14:00→18:05)
[2018-10-08] MEDS: metOLazone 5 MG TABLET PO SCH (14:23)
[2018-10-08] MEDS: ACETAMINOPHEN 325 MG TABLET PO PRN (18:13)
[2018-10-08] MEDS: HydrOXYzine PAMOATE 25 MG CAPSULE PO PRN (20:05)
[2018-10-08] MEDS: DONEPEZIL 5 MG TABLET PO SCH (20:55)
[2018-10-08] MEDS: ATORVASTATIN 10 MG TABLET PO SCH (20:55)
[2018-10-09 05:35] LABS: Basophils % 0.1 % (0.0-0.8); Hemoglobin 8.6 GM/DL (12.0-16.0); Immature Granulocytes % 2.5 %; Immature Granulocytes Absolute 0.21 #; Lymphocytes # 0.5 10*3/uL (1.4-4.0); Lymphocytes % 5.9 % (21.3-54.2); Mean Corpuscular HGB Conc 30.7 GM/DL (32-36); Mean Corpuscular Hemoglobin 28 PG (27-34); Mean Corpuscular Volume 91.8 FL (87-102); Mean Platelet Volume 9.4 FL (9.6-12.0); Monocytes # 0.4 10*3/uL (0.11-0.8); Monocytes % 4.2 % (1.7-12.7); Neutrophils # 7.3 10*3/uL (1.4-7.4); Neutrophils % 87.3 % (38.7-73.9); Platelet Count 160 T/CUMM (130-400); Red Blood Count 3.05 MC/CUMM (3.8-5.5); Red Cell Distribution Width 17.1 % (9.3-17.3); White Blood Count 8.4 T/CUMM (4-12)
[2018-10-09 05:56] LABS: Albumin 2.8 G/DL (3.4-5.0); Bilirubin,Total 0.6 MG/DL (0.2-1.0); Calcium 9.1 MG/DL (8.5-10.1); Osmolality,Calculated 282.4 MOS/KG (273-304); Potassium 3.5 MMOL/L (3.5-5.1); Total Protein 6.9 G/DL (6.4-8.3)
[2018-10-09] MEDS ORDERED: hydrALAZINE 25 MG TABLET ONE (08:28)
[2018-10-09] MEDS ORDERED: hydrALAZINE 10 MG TABLET ONE (08:29)
[2018-10-09] MEDS: FUROSEMIDE 40 MG/4 ML VIAL IV SCH ×2 (08:40→16:14)
[2018-10-09] MEDS: INSULIN LISPRO 100 UNIT/ML SUBCUT SCH ×4 (08:45→21:34)
[2018-10-09] MEDS: methylPREDNISolone SOD SUC 40 MG/1 ML VIAL IV SCH ×2 (08:46→20:35)
[2018-10-09] MEDS: FLECAINIDE 50 MG TABLET PO SCH ×2 (08:47→20:35)
[2018-10-09] MEDS: DOXAZOSIN 4 MG TABLET PO SCH (08:47)
[2018-10-09] MEDS: ASPIRIN EC 325 MG TABLET PO SCH (08:47)
[2018-10-09] MEDS: POTASSIUM CHLORIDE 20 MEQ TABLET PO SCH (08:47)
[2018-10-09] MEDS: HydrOXYzine PAMOATE 25 MG CAPSULE PO PRN (08:47)
[2018-10-09] MEDS: amLODIPine 10 MG TABLET PO SCH (08:47)
[2018-10-09] MEDS: ACETAMINOPHEN 325 MG TABLET PO PRN (08:48)
[2018-10-09] MEDS: DOCUSATE SODIUM 100 MG CAPSULE PO SCH ×2 (08:49→20:35)
[2018-10-09] MEDS: ZINC OXIDE PASTE 113 GM TUBE TOP SCH ×2 (08:49→20:36)
[2018-10-09] MEDS: CARVEDILOL 3.125 MG TABLET PO SCH ×2 (08:49→20:35)
[2018-10-09] MEDS: PANTOPRAZOLE 40 MG TABLET PO SCH (08:50)
[2018-10-09] MEDS: CITALOPRAM 40 MG TABLET PO SCH (09:06)
[2018-10-09] MEDS: metOLazone 5 MG TABLET PO SCH (09:06)
[2018-10-09] MEDS: cefTRIAXone 1,000 MG in SYRINGE 1 EACH IV SCH (11:40)
[2018-10-09] MEDS: ATORVASTATIN 10 MG TABLET PO SCH (20:35)
[2018-10-09] MEDS: DONEPEZIL 5 MG TABLET PO SCH (20:35)
[2018-10-10 05:08] LABS: Basophils % 0.1 % (0.0-0.8); Hemoglobin 9.1 GM/DL (12.0-16.0); Immature Granulocytes % 2.1 %; Immature Granulocytes Absolute 0.18 #; Lymphocytes # 0.5 10*3/uL (1.4-4.0); Lymphocytes % 5.5 % (21.3-54.2); Mean Corpuscular HGB Conc 31.4 GM/DL (32-36); Mean Corpuscular Hemoglobin 28 PG (27-34); Mean Corpuscular Volume 90.1 FL (87-102); Mean Platelet Volume 9.3 FL (9.6-12.0); Monocytes # 0.4 10*3/uL (0.11-0.8); Monocytes % 5.1 % (1.7-12.7); NRBC # 0.02 10*3/uL; Neutrophils # 7.3 10*3/uL (1.4-7.4); Neutrophils % 87.2 % (38.7-73.9); Platelet Count 160 T/CUMM (130-400); Red Blood Count 3.22 MC/CUMM (3.8-5.5); Red Cell Distribution Width 16.7 % (9.3-17.3); White Blood Count 8.4 T/CUMM (4-12)
[2018-10-10 05:35] LABS: Albumin 2.9 G/DL (3.4-5.0); Bilirubin,Total 0.8 MG/DL (0.2-1.0); Calcium 9.3 MG/DL (8.5-10.1); Osmolality,Calculated 284.4 MOS/KG (273-304); Potassium 3.5 MMOL/L (3.5-5.1)
[2018-10-10] MEDS: FLECAINIDE 50 MG TABLET PO SCH ×2 (08:51→22:01)
[2018-10-10] MEDS: POTASSIUM CHLORIDE 20 MEQ TABLET PO SCH (08:51)
[2018-10-10] MEDS: CITALOPRAM 40 MG TABLET PO SCH (08:51)
[2018-10-10] MEDS: CARVEDILOL 3.125 MG TABLET PO SCH ×2 (08:52→22:01)
[2018-10-10] MEDS: amLODIPine 10 MG TABLET PO SCH (08:52)
[2018-10-10] MEDS: DOXAZOSIN 4 MG TABLET PO SCH (08:52)
[2018-10-10] MEDS: metOLazone 5 MG TABLET PO SCH (08:52)
[2018-10-10] MEDS: ASPIRIN EC 325 MG TABLET PO SCH (08:53)
[2018-10-10] MEDS: PANTOPRAZOLE 40 MG TABLET PO SCH (08:53)
[2018-10-10] MEDS: DOCUSATE SODIUM 100 MG CAPSULE PO SCH ×2 (08:53→22:01)
[2018-10-10] MEDS: INSULIN LISPRO 100 UNIT/ML SUBCUT SCH ×4 (09:01→22:00)
[2018-10-10] MEDS: methylPREDNISolone SOD SUC 40 MG/1 ML VIAL IV SCH ×2 (09:03→22:02)
[2018-10-10] MEDS: FUROSEMIDE 40 MG/4 ML VIAL IV SCH ×2 (09:04→16:42)
[2018-10-10] MEDS: cefTRIAXone 1,000 MG in SYRINGE 1 EACH IV SCH (12:30)
[2018-10-10] MEDS: ZINC OXIDE PASTE 113 GM TUBE TOP SCH ×2 (18:40→22:00)
[2018-10-10] MEDS: DONEPEZIL 5 MG TABLET PO SCH (22:01)
[2018-10-10] MEDS: ATORVASTATIN 10 MG TABLET PO SCH (22:01)
[2018-10-11 05:28] LABS: Basophils % 0.1 % (0.0-0.8); Hematocrit 30.4 VOL% (35.7-47.0); Hemoglobin 9.7 GM/DL (12.0-16.0); Immature Granulocytes % 2.4 %; Lymphocytes # 0.4 10*3/uL (1.4-4.0); Lymphocytes % 4.3 % (21.3-54.2); Mean Corpuscular HGB Conc 31.9 GM/DL (32-36); Mean Corpuscular Hemoglobin 28 PG (27-34); Mean Corpuscular Volume 88.9 FL (87-102); Mean Platelet Volume 9.2 FL (9.6-12.0); Monocytes # 0.4 10*3/uL (0.11-0.8); Monocytes % 5.1 % (1.7-12.7); Neutrophils # 7.2 10*3/uL (1.4-7.4); Neutrophils % 88.1 % (38.7-73.9); Platelet Count 170 T/CUMM (130-400); Red Blood Count 3.42 MC/CUMM (3.8-5.5); Red Cell Distribution Width 16.2 % (9.3-17.3); White Blood Count 8.2 T/CUMM (4-12)
[2018-10-11 05:51] LABS: Band Neutrophils 3 % (0-10); Hypochromasia 1+; Lymphocytes 5 % (20-55); Nucleated Red Blood Cells 1 (0-5); Platelet Estimate Adequate; Segmented Neutrophils 89 % (50-85); Total Cells Counted 100
[2018-10-11 06:02] LABS: Albumin 2.9 G/DL (3.4-5.0); Bilirubin,Total 0.5 MG/DL (0.2-1.0); Calcium 8.9 MG/DL (8.5-10.1); Osmolality,Calculated 294.7 MOS/KG (273-304); Potassium 3.4 MMOL/L (3.5-5.1)
[2018-10-11] MEDS: FLECAINIDE 50 MG TABLET PO SCH ×2 (09:40→22:29)
[2018-10-11] MEDS: DOCUSATE SODIUM 100 MG CAPSULE PO SCH ×2 (09:40→22:30)
[2018-10-11] MEDS: CITALOPRAM 40 MG TABLET PO SCH (09:41)
[2018-10-11] MEDS: CARVEDILOL 3.125 MG TABLET PO SCH ×2 (09:41→22:30)
[2018-10-11] MEDS: metOLazone 5 MG TABLET PO SCH (09:41)
[2018-10-11] MEDS: PANTOPRAZOLE 40 MG TABLET PO SCH (09:41)
[2018-10-11] MEDS: methylPREDNISolone SOD SUC 40 MG/1 ML VIAL IV SCH (09:42)
[2018-10-11] MEDS: ASPIRIN EC 325 MG TABLET PO SCH (09:42)
[2018-10-11] MEDS: DOXAZOSIN 4 MG TABLET PO SCH (09:42)
[2018-10-11] MEDS: POTASSIUM CHLORIDE 20 MEQ TABLET PO SCH (09:42)
[2018-10-11] MEDS: INSULIN LISPRO 100 UNIT/ML SUBCUT SCH ×4 (09:44→22:30)
[2018-10-11] MEDS: FUROSEMIDE 40 MG/4 ML VIAL IV SCH (09:45)
[2018-10-11] MEDS: amLODIPine 10 MG TABLET PO SCH (09:48)
[2018-10-11] MEDS: ZINC OXIDE PASTE 113 GM TUBE TOP SCH ×2 (09:49→22:30)
[2018-10-11] MEDS: cefTRIAXone 1,000 MG in SYRINGE 1 EACH IV SCH (12:15)
[2018-10-11] MEDS ORDERED: FUROSEMIDE 40 MG TABLET PO SCH (16:30)
[2018-10-11] MEDS: ATORVASTATIN 10 MG TABLET PO SCH (22:29)
[2018-10-11] MEDS: DONEPEZIL 5 MG TABLET PO SCH (22:30)
[2018-10-12 05:45] LABS: Albumin 2.8 G/DL (3.4-5.0); Bilirubin,Total 0.9 MG/DL (0.2-1.0); Calcium 8.9 MG/DL (8.5-10.1); Osmolality,Calculated 286.4 MOS/KG (273-304); Potassium 2.9 MMOL/L (3.5-5.1); Total Protein 6.7 G/DL (6.4-8.3)
[2018-10-12] MEDS ORDERED: POTASSIUM CHLORIDE 20 MEQ TABLET PO ONE (06:02)
[2018-10-12] MEDS ORDERED: POTASSIUM CHLORIDE 20 MEQ TABLET PO PRN (06:03)
[2018-10-12] MEDS: ACETAMINOPHEN 325 MG TABLET PO PRN (06:44)
[2018-10-12 06:56] LABS: Basophils % 0.2 % (0.0-0.8); Eosinophils # 0.1 10*3/uL (0.0-0.87); Eosinophils % 0.9 % (0.00-10.9); Hematocrit 30.9 VOL% (35.7-47.0); Hemoglobin 9.9 GM/DL (12.0-16.0); Immature Granulocytes % 2.2 %; Immature Granulocytes Absolute 0.21 #; Lymphocytes # 1.4 10*3/uL (1.4-4.0); Lymphocytes % 14.7 % (21.3-54.2); Mean Corpuscular Hemoglobin 29 PG (27-34); Mean Corpuscular Volume 89.3 FL (87-102); Monocytes # 1.3 10*3/uL (0.11-0.8); Monocytes % 13.1 % (1.7-12.7); NRBC # 0.02 10*3/uL; Neutrophils # 6.7 10*3/uL (1.4-7.4); Neutrophils % 68.9 % (38.7-73.9); Platelet Count 170 T/CUMM (130-400); Red Blood Count 3.46 MC/CUMM (3.8-5.5); Red Cell Distribution Width 16.1 % (9.3-17.3); White Blood Count 9.7 T/CUMM (4-12)
[2018-10-12] MEDS ORDERED: predniSONE 20 MG TABLET PO SCH (09:00)
[2018-10-12] MEDS ORDERED: FUROSEMIDE 80 MG TABLET PO SCH (09:00)
[2018-10-12] MEDS: CITALOPRAM 40 MG TABLET PO SCH (10:46)
[2018-10-12] MEDS: CARVEDILOL 3.125 MG TABLET PO SCH (10:46)
[2018-10-12] MEDS: metOLazone 5 MG TABLET PO SCH (10:47)
[2018-10-12] MEDS: DOCUSATE SODIUM 100 MG CAPSULE PO SCH (10:47)
[2018-10-12] MEDS: DOXAZOSIN 4 MG TABLET PO SCH (10:47)
[2018-10-12] MEDS: PANTOPRAZOLE 40 MG TABLET PO SCH (10:48)
[2018-10-12] MEDS: amLODIPine 10 MG TABLET PO SCH (10:51)
[2018-10-12] MEDS: INSULIN LISPRO 100 UNIT/ML SUBCUT SCH ×2 (10:52→12:18)
[2018-10-12] MEDS: ASPIRIN EC 325 MG TABLET PO SCH (10:52)
[2018-10-12] MEDS: POTASSIUM CHLORIDE 20 MEQ TABLET PO SCH (10:58)
[2018-10-12] MEDS: FLECAINIDE 50 MG TABLET PO SCH (10:59)
[2018-10-12] MEDS: ZINC OXIDE PASTE 113 GM TUBE TOP SCH (11:00)
[2018-10-12 11:29] VITALS: BP 159/65
[2018-10-12] MEDS: cefTRIAXone 1,000 MG in SYRINGE 1 EACH IV SCH (11:41)
== END 2018-10-12 13:28 | DRG 291 ==
LOC: EDUNIT# → EDBD → N.ED 13:34 → N.EDINP 15:33 → N.ICU 17:13 → N.TELEN 10-07 12:14
PROVIDERS: ADMIT Family Medicine; ATTEND Family Medicine

== ENCOUNTER 2019-06-18 11:41 | Inpatient (IN) ==
[2019-06-18 12:48] LABS: Basophils # 0.1 10*3/uL (0.0-0.2); Basophils % 0.7 % (0.0-0.8); Eosinophils # 0.5 10*3/uL (0.0-0.87); Eosinophils % 3.6 % (0.00-10.9); Hematocrit 31.8 VOL% (35.7-47.0); Hemoglobin 10.7 GM/DL (12.0-16.0); Immature Granulocytes % 0.6 %; Immature Granulocytes Absolute 0.07 #; Lymphocytes # 1.3 10*3/uL (1.4-4.0); Lymphocytes % 10.1 % (21.3-54.2); Mean Corpuscular HGB Conc 33.6 GM/DL (32-36); Mean Corpuscular Volume 94.1 FL (87-102); Mean Platelet Volume 9.9 FL (9.6-12.0); Monocytes % 9.6 % (1.7-12.7); Neutrophils % 75.4 % (38.7-73.9); Platelet Count 222 T/CUMM (130-400); Red Blood Count 3.38 MC/CUMM (3.8-5.5); Red Cell Distribution Width 14.2 % (9.3-17.3); White Blood Count 12.4 T/CUMM (4-12)
[2019-06-18 13:07] LABS: Calcium 8.9 MG/DL (8.5-10.1); Osmolality,Calculated 302.1 MOS/KG (273-304)
[2019-06-18] MEDS ORDERED: hydrALAZINE 20 MG/1 ML VIAL IV STA (13:56)
[2019-06-18] MEDS ORDERED: ONDANSETRON 4 MG/2 ML VIAL IV PRN (14:06)
[2019-06-18] MEDS ORDERED: ALBUTEROL/IPRATROPIUM 3 ML NEB RESP TX PRN (14:09)
[2019-06-18] MEDS ORDERED: GLUCAGON 1 MG VIAL IM PRN (14:11)
[2019-06-18] MEDS ORDERED: DEXTROSE 10% 25 GM/250 ML BAG IV PRN (14:11)
[2019-06-18] MEDS: SODIUM CHLORIDE 0.45% 1,000 ML IV SCH (14:53)
[2019-06-18] MEDS: INSULIN LISPRO 100 UNIT/ML SUBCUT SCH ×2 (17:25→21:50)
[2019-06-18] MEDS: diphenhydrAMINE CAP 50 MG CAPSULE PO PRN (19:16)
[2019-06-18] MEDS ORDERED: DOCUSATE SODIUM 100 MG CAPSULE PO SCH (21:00)
[2019-06-18] MEDS: carvediloL 3.125 MG TABLET PO SCH (21:12)
[2019-06-18] MEDS: ATORVASTATIN 10 MG TABLET PO SCH (21:12)
[2019-06-18] MEDS: FLECAINIDE 50 MG TABLET PO SCH (21:12)
[2019-06-18] MEDS: PSYLLIUM POWDER 3.7 GM/PACK PO SCH (21:12)
[2019-06-18] MEDS: DONEPEZIL 5 MG TABLET PO SCH (21:12)
[2019-06-19 05:01] LABS: Bilirubin,Total 0.8 MG/DL (0.2-1.0); Calcium 8.8 MG/DL (8.5-10.1); Osmolality,Calculated 298.1 MOS/KG (273-304); Total Protein 6.9 G/DL (6.4-8.3)
[2019-06-19] MEDS ORDERED: DEXTROSE 50% 25 GM/50 ML VIAL IV PRN (07:56)
[2019-06-19] MEDS: INSULIN LISPRO 100 UNIT/ML SUBCUT SCH ×2 (09:07→13:27)
[2019-06-19] MEDS: DOXAZOSIN 4 MG TABLET PO SCH (09:08)
[2019-06-19] MEDS: metOLazone 5 MG TABLET PO SCH (09:08)
[2019-06-19] MEDS: MULTIVITAMIN (CENTRUM) TABLET PO SCH (09:08)
[2019-06-19] MEDS: sitaGLIPtin 25 MG TABLET PO SCH (09:08)
[2019-06-19] MEDS: CITALOPRAM 40 MG TABLET PO SCH (09:08)
[2019-06-19] MEDS: DOCUSATE SODIUM 100 MG CAPSULE PO SCH (09:09)
[2019-06-19] MEDS: carvediloL 3.125 MG TABLET PO SCH (09:09)
[2019-06-19] MEDS: ASPIRIN EC 325 MG TABLET PO SCH (09:09)
[2019-06-19] MEDS: PANTOPRAZOLE 40 MG TABLET PO SCH (09:09)
[2019-06-19] MEDS: POTASSIUM CHLORIDE 20 MEQ TABLET PO SCH (09:09)
[2019-06-19] MEDS: amLODIPine 10 MG TABLET PO SCH (09:09)
[2019-06-19] MEDS: FUROSEMIDE 80 MG TABLET PO SCH (09:09)
[2019-06-19] MEDS: FLECAINIDE 50 MG TABLET PO SCH ×2 (09:10→21:16)
[2019-06-19] MEDS: ACETAMINOPHEN 325 MG TABLET PO PRN ×2 (09:10→17:25)
[2019-06-19] MEDS: SODIUM CHLORIDE 0.45% 1,000 ML IV SCH (10:35)
[2019-06-19] MEDS: diphenhydrAMINE CAP 50 MG CAPSULE PO PRN (13:53)
[2019-06-19] MEDS: INSULIN REGULAR 100 UNIT/ML SUBCUT SCH ×2 (15:15→17:25)
[2019-06-19] MEDS ORDERED: INFLUENZA VIRUS VACCINE 0.5 ML SYRINGE IM ONE (15:28)
[2019-06-19] MEDS: ATORVASTATIN 10 MG TABLET PO SCH (21:16)
[2019-06-19] MEDS: DONEPEZIL 5 MG TABLET PO SCH (21:16)
[2019-06-19] MEDS: PSYLLIUM POWDER 3.7 GM/PACK PO SCH (22:34)
[2019-06-20] MEDS: carvediloL 3.125 MG TABLET PO SCH ×3 (00:35→20:38)
[2019-06-20] MEDS: ACETAMINOPHEN 325 MG TABLET PO PRN ×3 (01:18→21:57)
[2019-06-20] MEDS: CITALOPRAM 40 MG TABLET PO SCH (09:17)
[2019-06-20] MEDS: FLECAINIDE 50 MG TABLET PO SCH ×2 (09:17→20:38)
[2019-06-20] MEDS: INSULIN REGULAR 100 UNIT/ML SUBCUT SCH ×3 (09:17→17:04)
[2019-06-20] MEDS: DOXAZOSIN 4 MG TABLET PO SCH (09:18)
[2019-06-20] MEDS: DOCUSATE SODIUM 100 MG CAPSULE PO SCH (09:18)
[2019-06-20] MEDS: sitaGLIPtin 25 MG TABLET PO SCH (09:18)
[2019-06-20] MEDS: MULTIVITAMIN (CENTRUM) TABLET PO SCH (09:18)
[2019-06-20] MEDS: PANTOPRAZOLE 40 MG TABLET PO SCH (09:18)
[2019-06-20] MEDS: ASPIRIN EC 325 MG TABLET PO SCH (09:18)
[2019-06-20] MEDS: metOLazone 5 MG TABLET PO SCH (09:18)
[2019-06-20] MEDS: amLODIPine 10 MG TABLET PO SCH (09:19)
[2019-06-20] MEDS: FUROSEMIDE 80 MG TABLET PO SCH (09:19)
[2019-06-20] MEDS: POTASSIUM CHLORIDE 20 MEQ TABLET PO SCH (09:19)
[2019-06-20] MEDS: SODIUM CHLORIDE 0.45% 1,000 ML IV SCH (09:30)
[2019-06-20] MEDS: POTASSIUM CHLORIDE 20 MEQ TABLET PO PRN ×3 (13:30→23:38)
[2019-06-20] MEDS: ATORVASTATIN 10 MG TABLET PO SCH (20:38)
[2019-06-20] MEDS: PSYLLIUM POWDER 3.7 GM/PACK PO SCH (20:39)
[2019-06-20] MEDS: DONEPEZIL 5 MG TABLET PO SCH (20:39)
[2019-06-20] MEDS: DEXAMETHASONE 4 MG TABLET PO SCH (21:57)
[2019-06-20] MEDS: diphenhydrAMINE CAP 50 MG CAPSULE PO PRN (21:58)
[2019-06-21] MEDS: POTASSIUM CHLORIDE 20 MEQ TABLET PO PRN (01:24)
[2019-06-21 05:05] LABS: Basophils # 0.1 10*3/uL (0.0-0.2); Basophils % 0.7 % (0.0-0.8); Eosinophils # 0.2 10*3/uL (0.0-0.87); Eosinophils % 2.2 % (0.00-10.9); Hematocrit 31.5 VOL% (35.7-47.0); Hemoglobin 10.5 GM/DL (12.0-16.0); Immature Granulocytes % 0.7 %; Immature Granulocytes Absolute 0.07 #; Lymphocytes # 1.2 10*3/uL (1.4-4.0); Lymphocytes % 12.4 % (21.3-54.2); Mean Corpuscular HGB Conc 33.3 GM/DL (32-36); Mean Corpuscular Volume 94.6 FL (87-102); Mean Platelet Volume 10.1 FL (9.6-12.0); Monocytes % 5.5 % (1.7-12.7); Neutrophils % 78.5 % (38.7-73.9); Platelet Count 234 T/CUMM (130-400); Red Blood Count 3.33 MC/CUMM (3.8-5.5); Red Cell Distribution Width 13.8 % (9.3-17.3); White Blood Count 9.6 T/CUMM (4-12)
[2019-06-21 05:27] LABS: Osmolality,Calculated 298.1 MOS/KG (273-304)
[2019-06-21] MEDS: SODIUM CHLORIDE 0.45% 1,000 ML IV SCH (06:05)
[2019-06-21] MEDS: INSULIN REGULAR 100 UNIT/ML SUBCUT SCH ×2 (09:53→13:57)
[2019-06-21] MEDS: ASPIRIN EC 325 MG TABLET PO SCH (09:53)
[2019-06-21] MEDS: DOXAZOSIN 4 MG TABLET PO SCH (09:53)
[2019-06-21] MEDS: CITALOPRAM 40 MG TABLET PO SCH (09:53)
[2019-06-21] MEDS: sitaGLIPtin 25 MG TABLET PO SCH (09:53)
[2019-06-21] MEDS: POTASSIUM CHLORIDE 20 MEQ TABLET PO SCH (09:54)
[2019-06-21] MEDS: carvediloL 3.125 MG TABLET PO SCH (09:54)
[2019-06-21] MEDS: MULTIVITAMIN (CENTRUM) TABLET PO SCH (09:54)
[2019-06-21] MEDS: PANTOPRAZOLE 40 MG TABLET PO SCH (09:54)
[2019-06-21] MEDS: DOCUSATE SODIUM 100 MG CAPSULE PO SCH (09:54)
[2019-06-21] MEDS: FLECAINIDE 50 MG TABLET PO SCH (09:57)
[2019-06-21] MEDS: FUROSEMIDE 80 MG TABLET PO SCH (10:17)
[2019-06-21] MEDS: metOLazone 5 MG TABLET PO SCH (10:17)
[2019-06-21] MEDS: amLODIPine 10 MG TABLET PO SCH (10:17)
[2019-06-21 11:59] VITALS: BP 155/53
[2019-06-21] MEDS: DEXAMETHASONE 4 MG TABLET PO SCH (13:55)
[2019-06-21] MEDS ORDERED: INSULIN GLARGINE 100 UNIT/ML SUBCUT SCH (15:00)
== END 2019-06-21 15:20 | DRG 92 ==
LOC: N.ED 11:41 → INTOOBSV 14:06 → N.EDINP 14:06 → N.2E 15:54
PROVIDERS: ADMIT Family Medicine; ATTEND Family Medicine